=== PATIENT | female | born 1955 | race African-American/Black ===

== ENCOUNTER 2016-08-19 17:25 | Inpatient (IN) ==
--- NOTE | 2016-08-19 18:20 | Emergency Department Note ---
Disposition Clinical Impression: Elevated troponin, Hypertensive urgency, Anemia, Chest pain, CHF (congestive heart failure) Disposition: Admitted As Inpatient Condition: Fair Referrals: NO,PCP [Non-Partnered Physician] - Forms: ED Satisfaction Letter Time of Disposition: 00:12 General Adult HPI - General Chief complaint: ED Weakness Stated complaint: weakness, high BP? Time Seen by Provider: 08/19/16 18:03 Source: patient Limitations: no limitations - History of Present Illness HPI Narrative: This is a 60-year-old female who presents with nausea and chest pain starting yesterday while she was at work. Patient has a history of 2 cardiac stents and follows Dr. Finn for cardiology. Dr. Finn sent patient over here to be admitted. Patient's blood pressure has been out of control well over 200 systolic. Patient denies any abdominal pain, vomiting, diarrhea, urinary symptoms, or fever. Onset (ago): day(s) (1) Pain Scale: 8 - Related Data Home Medications Medication Instructions Recorded Confirmed Ammonium Lactate [Amlactin] 1 appl TP BID 02/22/15 02/14/16 Duloxetine HCl [Cymbalta] 60 mg PO DAILY 02/22/15 03/06/16 Gabapentin [Neurontin] 900 mg PO TID 02/22/15 03/06/16 Insulin ASPART [NovoLOG] 8 - 14 unit SQ TIDWM 02/22/15 03/06/16 Insulin Glargine,Hum.rec.anlog 40 unit SQ QAM 02/22/15 03/06/16 [Lantus Solostar] Nitroglycerin [Nitrostat] 0.4 mg SL Q5-6MIN PRN 02/22/15 02/14/16 Amlodipine [Norvasc] 5 mg PO DAILY 06/11/15 03/06/16 Aspirin Enteric Coated [Aspirin EC] 81 mg PO DAILY 06/11/15 03/06/16 Atorvastatin [Lipitor] 40 mg PO HS 06/11/15 03/06/16 Ergocalciferol (VITAMIN D2) 50,000 unit PO DAILY 09/06/15 03/06/16 [Vitamin D2 (50,000 UNIT)] CloNIDine Patch [Catapres-Tts] 0.2 mg TD QWEEK 02/14/16 03/06/16 Clotrimazole/Betameth Dip CRM 1 appl TP BID 02/14/16 02/14/16 [Lotrisone CRM] Menthol [Icy Hot Naturals] 1 appl TP QID 02/14/16 02/14/16 Lisinopril [Zestril] 40 mg PO BID 03/06/16 03/06/16 Rivaroxaban [Xarelto] 15 mg PO DAILY 03/06/16 03/06/16 Previous Rx's Medication Instructions Recorded Metoprolol XL (24 HR) Succ [Toprol 50 mg PO DAILY tab.er.24h 12/09/15 Xl] HYDROcodone/Acet 10/325 mg [[place] 1 tab PO Q6HR PRN #20 tab 03/06/16 10-325 mg] Albuterol Sulfate [Albuterol 1 puff IH Q4HR #1 inhaler 03/16/16 Inhaler] Hydrocodone/Acetaminophen [[place] 1 tab PO Q6H PRN #7 tab 03/16/16 5-325 Tablet] Allergies Allergy/AdvReac Type Severity Reaction Status Date / Time fentanyl Allergy Shakiness Verified 12/02/15 08:29 Oxycodone [From Percocet] Allergy Shakiness Verified 12/02/15 08:29 All systems ED: reviewed and negative except as stated. Constitutional: Reports: weakness. Denies: fever, chills, weight change Eyes: Denies: eye pain, eye discharge, vision change ENT ED: Denies: ear pain, throat pain, dental pain, hearing loss, epistaxis, congestion, dysphagia Cardiovascular: Reports: chest pain. Denies: palpitations, dyspnea on exertion , edema, syncope Respiratory: Denies: cough, dyspnea, wheezes, hemoptysis, stridor Gastrointestinal: Reports: nausea. Denies: abdominal pain, vomiting, diarrhea, constipation, hematemesis, melena, hematochezia Genitourinary: Denies: dysuria, frequency, hematuria, discharge Musculoskeletal: Denies: back pain, neck pain, arthralgia, myalgia Integumentary: Denies: rash, abrasion, lesions Neurological: Denies: headache, numbness, paresthesias, confusion, abnormal gait , vertigo Psychiatric: Denies: anxiety, depression, suicidal thoughts, homicidal thoughts , auditory hallucinations, visual hallucinations Endocrine: Denies: fatigue Hematological/Lymphatic: Denies: easy bleeding, easy bruising Allergic/Immunologic: Denies: facial swelling, urticaria Past Medical History - Past Medical History Attestation: Yes The following information was validated with the patient. Source: patient Medical history: Reports: coronary artery disease, diabetes, GERD, hypertension Surgical history: Reports: appendectomy, hysterectomy Psychiatric history: Reports: depression - Social History Smoking Status: Never smoker Smokeless Tobacco Status: No Alcohol use: Reports: occasionally Drug use: Reports: marijuana Physical Exam - General Limitations: no limitations General appearance: alert, in no apparent distress - Head Head exam: atraumatic, normocephalic, normal inspection - Eye Eye exam: Present: normal appearance, PERRL, EOMI - ENT ENT exam: normal exam, normal oropharynx, mucous membranes moist - Expanded ENT Exam External ear exam: Present: normal external inspection Mouth exam: Present: normal external inspection Teeth exam: Present: normal inspection Throat exam: Present: normal inspection - Neck Neck exam: Present: normal inspection, full ROM, trachea midline - Chest Chest inspection: Present: normal inspection, symmetric chest wall rise - Respiratory Respiratory exam: Present: normal lung sounds bilaterally - Cardiovascular Cardiovascular exam: Present: regular rate, normal rhythm, normal heart sounds - Abdominal Exam Abdominal exam: Present: soft, Non-Tender. Absent: tenderness, distention, guarding, rebound, rigidity - Extremities Exam Extremities exam: Present: normal inspection, full ROM. Absent: tenderness, pedal edema - Expanded Upper Extremity Exam Shoulder exam: Present: normal inspection, full ROM Arm exam: Present: normal inspection, full ROM Elbow exam: Present: normal inspection, full ROM Forearm/Wrist exam: Present: normal inspection, full ROM Hand exam: Present: normal inspection, full ROM Vascular exam: Normal: capillary refill, radial pulse - Expanded Lower Extremity Exam Hip/Pelvis exam: Present: normal inspection, full ROM Upper leg exam: Present: normal inspection, full ROM Knee exam: Present: normal inspection, full ROM Lower leg exam: Present: normal inspection, full ROM Ankle exam: Present: normal inspection, full ROM Foot/toe exam: Present: normal inspection, full ROM Neurovascular/Tendon exam: Absent: motor deficit, sensory deficit, tendon deficit - Back Exam Back exam: Present: normal inspection, full ROM. Absent: tenderness - Neurological Exam Neurological exam: Present: alert, oriented X3 - Expanded Neurological Exam Patient oriented to: Present: person, place, time Coma Scale Eye Opening: Spontaneous Coma Scale Motor Response: Obeys Commands Coma Scale Verbal Response: Oriented Coma Scale Total: 15 - Psychiatric Psychiatric exam: Present: normal affect, normal mood - Skin Skin exam: Present: warm, dry, intact, normal color Course - Consultations Consultation #1: I spoke with Dr. Julián salinas to admit. Time: 00:20 Vital Signs Temperature 98.8 F 08/19/16 17:44 Pulse Rate 98 08/19/16 17:44 Respiratory Rate 16 08/19/16 17:44 Blood Pressure 211/123 08/19/16 17:44 O2 Sat by Pulse Oximetry 96 08/19/16 17:44 Temperature 98.8 F 08/19/16 17:44 Pulse Rate 94 08/19/16 23:43 Respiratory Rate 16 08/19/16 23:43 Blood Pressure 206/96 08/19/16 23:43 O2 Sat by Pulse Oximetry 94 L 08/19/16 23:43 Oxygen Delivery Oxygen Delivery Room Air Medical Decision Making - Medical Records Medical records reviewed: Yes I reviewed the patient's medical records. - Lab Data Lab results reviewed: Yes I reviewed the patient's lab results. Result diagrams: 08/19/16 22:10 08/19/16 22:10 Lab Results 08/19/16 08/19/16 08/19/16 Range/Units 18:16 22:10 22:10 WBC (4.3-11.1) K/mcL RBC (3.82-4.97) M/mcL Hgb (11.5-15.4) g/dL Hct (35.3-44.9) % MCV (83.0-100.0) fL MCH (28.0-33.3) pg MCHC (31.6-35.5) g/dL RDW (11.5-14.5) % Plt Count (140-400) K/mcL MPV (9.4-12.4) fL Immature Gran % (0-4) % Seg Neutrophils % % Lymphocytes % % Monocytes % % Eosinophils % % Basophils % % Neutrophils # (1.6-8.9) K/mcL Lymphocytes # (0.6-4.6) K/mcL Monocytes # (0.0-1.3) K/mcL Eosinophils # (0.0-0.6) K/mcL Basophils # (0.0-0.2) K/mcL PT 11.8 (9.4-12.1) Seconds INR 1.1 APTT 22.2 L (26.0-36.0) Seconds Sodium (136-145) mEq/L Potassium (3.5-4.5) mEq/L Chloride (98-109) mEq/L Carbon Dioxide (19-29) mEq/L BUN (7-20) mg/dL Creatinine (0.57-1.11) mg/dL Est GFR ( Amer) (> 60) Est GFR (Non-Af Amer) (> 60) BUN/Creatinine Ratio (6-26) Glucose (70-99) mg/dL Calculated Osmolality (280-300) Calcium (8.6-10.8) mg/dL Total Bilirubin (0.2-1.2) mg/dL Direct Bilirubin (0.0-0.5) mg/dL Indirect Bilirubin (0.0-1.2) mg/dL AST (5-34) Units/L ALT (0-55) Units/L Alkaline Phosphatase (38-126) Units/L Troponin I 0.06 H* (0-0.03) ng/mL B-Natriuretic Peptide (0-100) pg/mL Serum Total Protein (6.0-8.3) g/dL Albumin (3.5-5.0) g/dL Globulin (2.4-3.5) g/dL Albumin/Globulin Ratio (1.1-2.2) Lipase (8-78) Units/L Urine Color Yellow (Yellow) Urine Clarity Cloudy A (Clear) Urine pH 6.0 (5.0-8.0) pH Units Ur Specific [place] 1.019 (1.010-1.025) Urine Protein >=1000 H (Neg-Trace) mg/dL Urine Glucose (UA) 250 H (Normal) mg/dL Urine Ketones Negative (Negative) mg/dL Urine Blood Moderate H (Negative) Urine Nitrite Negative (Negative) Urine Bilirubin Negative (Negative) Urine Urobilinogen Normal (Normal) mg/dL Ur Leukocyte Esterase Negative (Negative) Urine Microscopic RBC 0-3 (0-3) per hpf Urine Microscopic WBC 5-15 H (0-3) per hpf Ur Squamous Epith Cells Many H (None-Few) per lpf Urine Bacteria None Seen (None-Few) per hpf Hyaline Casts None Seen (None-Few) per lpf Ur Culture Indicated? YES A (NO) 08/19/16 08/19/16 08/19/16 Range/Units 22:10 22:10 22:10 WBC 11.6 H (4.3-11.1) K/mcL RBC 3.92 (3.82-4.97) M/mcL Hgb 9.4 L (11.5-15.4) g/dL Hct 29.1 L (35.3-44.9) % MCV 74.2 L (83.0-100.0) fL MCH 24.0 L (28.0-33.3) pg MCHC 32.3 (31.6-35.5) g/dL RDW 15.9 H (11.5-14.5) % Plt Count 222 (140-400) K/mcL MPV 10.6 (9.4-12.4) fL Immature Gran % 0.3 (0-4) % Seg Neutrophils % 81.3 % Lymphocytes % 11.5 % Monocytes % 5.5 % Eosinophils % 0.9 % Basophils % 0.5 % Neutrophils # 9.4 H (1.6-8.9) K/mcL Lymphocytes # 1.3 (0.6-4.6) K/mcL Monocytes # 0.6 (0.0-1.3) K/mcL Eosinophils # 0.1 (0.0-0.6) K/mcL Basophils # 0.1 (0.0-0.2) K/mcL PT (9.4-12.1) Seconds INR APTT (26.0-36.0) Seconds Sodium 139 (136-145) mEq/L Potassium 4.8 H (3.5-4.5) mEq/L Chloride 111 H (98-109) mEq/L Carbon Dioxide 18 L (19-29) mEq/L BUN 35 H (7-20) mg/dL Creatinine 1.30 H (0.57-1.11) mg/dL Est GFR ( Amer) 51 L (> 60) Est GFR (Non-Af Amer) 42 L (> 60) BUN/Creatinine Ratio 27 H (6-26) Glucose 209 H (70-99) mg/dL Calculated Osmolality 302 H (280-300) Calcium 8.5 L (8.6-10.8) mg/dL Total Bilirubin (0.2-1.2) mg/dL Direct Bilirubin (0.0-0.5) mg/dL Indirect Bilirubin (0.0-1.2) mg/dL AST (5-34) Units/L ALT (0-55) Units/L Alkaline Phosphatase (38-126) Units/L Troponin I (0-0.03) ng/mL B-Natriuretic Peptide 1073 H (0-100) pg/mL Serum Total Protein (6.0-8.3) g/dL Albumin (3.5-5.0) g/dL Globulin (2.4-3.5) g/dL Albumin/Globulin Ratio (1.1-2.2) Lipase (8-78) Units/L Urine Color (Yellow) Urine Clarity (Clear) Urine pH (5.0-8.0) pH Units Ur Specific [place] (1.010-1.025) Urine Protein (Neg-Trace) mg/dL Urine Glucose (UA) (Normal) mg/dL Urine Ketones (Negative) mg/dL Urine Blood (Negative) Urine Nitrite (Negative) Urine Bilirubin (Negative) Urine Urobilinogen (Normal) mg/dL Ur Leukocyte Esterase (Negative) Urine Microscopic RBC (0-3) per hpf Urine Microscopic WBC (0-3) per hpf Ur Squamous Epith Cells (None-Few) per lpf Urine Bacteria (None-Few) per hpf Hyaline Casts (None-Few) per lpf Ur Culture Indicated? (NO) 08/19/16 Range/Units 22:10 WBC (4.3-11.1) K/mcL RBC (3.82-4.97) M/mcL Hgb (11.5-15.4) g/dL Hct (35.3-44.9) % MCV (83.0-100.0) fL MCH (28.0-33.3) pg MCHC (31.6-35.5) g/dL RDW (11.5-14.5) % Plt Count (140-400) K/mcL MPV (9.4-12.4) fL Immature Gran % (0-4) % Seg Neutrophils % % Lymphocytes % % Monocytes % % Eosinophils % % Basophils % % Neutrophils # (1.6-8.9) K/mcL Lymphocytes # (0.6-4.6) K/mcL Monocytes # (0.0-1.3) K/mcL Eosinophils # (0.0-0.6) K/mcL Basophils # (0.0-0.2) K/mcL PT (9.4-12.1) Seconds INR APTT (26.0-36.0) Seconds Sodium (136-145) mEq/L Potassium (3.5-4.5) mEq/L Chloride (98-109) mEq/L Carbon Dioxide (19-29) mEq/L BUN (7-20) mg/dL Creatinine (0.57-1.11) mg/dL Est GFR ( Amer) (> 60) Est GFR (Non-Af Amer) (> 60) BUN/Creatinine Ratio (6-26) Glucose (70-99) mg/dL Calculated Osmolality (280-300) Calcium (8.6-10.8) mg/dL Total Bilirubin 0.5 (0.2-1.2) mg/dL Direct Bilirubin 0.2 (0.0-0.5) mg/dL Indirect Bilirubin 0.3 (0.0-1.2) mg/dL AST 17 (5-34) Units/L ALT 12 (0-55) Units/L Alkaline Phosphatase 67 (38-126) Units/L Troponin I (0-0.03) ng/mL B-Natriuretic Peptide (0-100) pg/mL Serum Total Protein 5.4 L (6.0-8.3) g/dL Albumin 2.6 L (3.5-5.0) g/dL Globulin 2.8 (2.4-3.5) g/dL Albumin/Globulin Ratio 0.9 L (1.1-2.2) Lipase 6 L (8-78) Units/L Urine Color (Yellow) Urine Clarity (Clear) Urine pH (5.0-8.0) pH Units Ur Specific [place] (1.010-1.025) Urine Protein (Neg-Trace) mg/dL Urine Glucose (UA) (Normal) mg/dL Urine Ketones (Negative) mg/dL Urine Blood (Negative) Urine Nitrite (Negative) Urine Bilirubin (Negative) Urine Urobilinogen (Normal) mg/dL Ur Leukocyte Esterase (Negative) Urine Microscopic RBC (0-3) per hpf Urine Microscopic WBC (0-3) per hpf Ur Squamous Epith Cells (None-Few) per lpf Urine Bacteria (None-Few) per hpf Hyaline Casts (None-Few) per lpf Ur Culture Indicated? (NO) - Radiology Data Radiology results reviewed: Yes I reviewed the patient's radiology results. - EKG Data EKG #1 EKG attestation: Yes I reviewed and interpreted this EKG. EKG shows normal: sinus rhythm Rate: normal (paced) When compared to previous EKG there are: no significant changes
[2016-08-19 18:26] LABS: Bilirubin,Urine Negative (Negative); Blood,Urine Moderate (Negative); Clarity,Urine Cloudy (Clear); Color,Urine Yellow (Yellow); Glucose,Urine (UA) 250 mg/dL (Normal); Ketones,Urine Negative (Negative); Leukocyte Esterase,Urine Negative (Negative); Nitrite,Urine Negative (Negative); Protein,Urine >=1000 mg/dL (Neg-Trace); Specific Gravity,Urine 1.019 (1.010-1.025); Urobilinogen,Urine Normal (Normal)
[2016-08-19 18:30] LABS: Bacteria,Urine None Seen per hpf (None-Few); Hyaline Casts,Urine None Seen per lpf (None-Few); Squamous Epithelial Cell,Urine Many per lpf (None-Few)
[2016-08-19 18:47] LABS: RBC,Urine 0-3 per hpf (0-3)
[2016-08-19] MEDS ORDERED: *HR* Labetalol 20 MG/4 ML SYRINGE IVP ONE (20:30)
[2016-08-19] MEDS ORDERED: 0.9 % Sodium Chloride 1,000 ML IVC ONE (20:31)
[2016-08-19 22:22] LABS: Basophils # 0.1 K/mcL (0.0-0.2); Basophils % 0.5 %; Eosinophils # 0.1 K/mcL (0.0-0.6); Eosinophils % 0.9 %; Hematocrit 29.1 % (35.3-44.9); Hemoglobin 9.4 g/dL (11.5-15.4); Immature Granulocytes % 0.3 % (0-4); Lymphocytes # 1.3 K/mcL (0.6-4.6); Lymphocytes % 11.5 %; Mean Corpuscular HGB Conc 32.3 g/dL (31.6-35.5); Mean Corpuscular Volume 74.2 fL (83.0-100.0); Mean Platelet Volume 10.6 fL (9.4-12.4); Monocytes # 0.6 K/mcL (0.0-1.3); Monocytes % 5.5 %; Neutrophils # 9.4 K/mcL (1.6-8.9); Platelet Count 222 K/mcL (140-400); Red Blood Count 3.92 M/mcL (3.82-4.97); Red Cell Distribution Width 15.9 % (11.5-14.5); Segmented Neutrophils % 81.3 %
[2016-08-19 22:27] LABS: INR 1.1; Prothrombin Time 11.8 Seconds (9.4-12.1)
[2016-08-19 22:29] LABS: Activated Partial Thrombo Time 22.2 Seconds (26.0-36.0)
[2016-08-19 22:33] LABS: Calcium 8.5 mg/dL (8.6-10.8); Potassium 4.8 mEq/L (3.5-4.5)
[2016-08-19] MEDS ORDERED: *HR* Morphine 2 MG/ML SYRINGE IV ONE (22:34)
[2016-08-19 22:35] LABS: Albumin 2.6 g/dL (3.5-5.0); Albumin/Globulin Ratio 0.9 (1.1-2.2); Bilirubin,Direct 0.2 mg/dL (0.0-0.5); Bilirubin,Indirect 0.3 mg/dL (0.0-1.2); Bilirubin,Total 0.5 mg/dL (0.2-1.2); Globulin 2.8 g/dL (2.4-3.5); Total Protein 5.4 g/dL (6.0-8.3)
[2016-08-19] MEDS ORDERED: 0.9 % Sodium Chloride 1,000 ML IVC SCH (23:45)
[2016-08-19] MEDS ORDERED: Nitroglycerin 25 MG/250 ML INFUS..BTL IVC SCH (23:45)
[2016-08-20] MEDS ORDERED: Aspirin 325 MG TABLET PO ONE (00:13)
[2016-08-20] MEDS ORDERED: 0.9 % Sodium Chloride 1,000 ML IVC SCH (00:35)
[2016-08-20] MEDS ORDERED: *HR* Morphine 2 MG/ML SYRINGE IVP PRN (01:27)
[2016-08-20] MEDS ORDERED: niCARdipine 20 MG/200 ML MLS IVC ONE (01:32)
[2016-08-20] MEDS: niCARdipine 20 MG/200 ML MLS IVC SCH ×6 (01:40→21:14)
[2016-08-20] MEDS ORDERED: Naloxone 0.4 MG/ML INJ IVP PRN (05:03)
[2016-08-20] MEDS ORDERED: *HR* Dextrose 50 % in Water (Syg) 50 ML SYRINGE IVP PRN (05:03)
[2016-08-20] MEDS ORDERED: Ondansetron 4 MG/2 ML VIAL IVP PRN (05:03)
[2016-08-20] MEDS ORDERED: D5% in Water 1,000 ML IV PRN (05:03)
[2016-08-20] MEDS ORDERED: *HR* Heparin 5,000 UNIT/ML VIAL IVP ONE (05:03)
[2016-08-20] MEDS ORDERED: *HR* Heparin 5,000 UNIT/ML VIAL IVP PRN ×2 (05:03)
[2016-08-20] MEDS ORDERED: Dextrose Gel 15 GM PO PRN ×2 (05:03)
[2016-08-20] MEDS ORDERED: Heparin 25,000 UNIT/500 ML D5W 25,000 UNIT/500 ML MLS IVC SCH (05:15)
--- NOTE | 2016-08-20 05:41 | Internal Med History&Physical ---
Date of Encounter: 08/20/16 Time of Encounter: 05:32 Assessment and Plan (1) Hypertensive emergency Current visit: Yes Status: Acute 1. Pt with resolution of symptoms upon control of BP. 2. Patient presently controlled on Nicardipine drip in step down unit. 3. Continue nicardipine with goal SBP 160-180 and then gradual decrease in BP. 4. Convert to oral regimen once BP controlled and patient stable. (2) Acute kidney injury Current visit: Yes Status: Acute 1. Control BP and monitor renal function. 2. May need nephrology consult if renal function does not improve. (3) Diabetes mellitus Current visit: Yes Status: Chronic Qualifiers: Diabetes mellitus type: type 2 Diabetes mellitus complication status: with neurologic complications Diabetes mellitus complication detail: with polyneuropathy Diabetes mellitus nursing home insulin use: with terminologist use Qualified Code(s): E11.42 - Type 2 diabetes mellitus with diabetic polyneuropathy; Z79.4 - custodial (current) use of insulin (4) Peripheral neuropathy Current visit: Yes Status: Chronic 1. Patient has pain stimulator in her back. 2. Continue po pain medication per home regimen. Qualifiers: Peripheral neuropathy type: polyneuropathy associated with underlying disease Qualified Code(s): G63 - Polyneuropathy in diseases classified elsewhere (5) Elevated troponin Current visit: Yes Status: Acute 1. Likely due to hypertensive emergency. 2. BP control as above. 3. Cycle troponins. 4. Check ECHO. 5. Obtain old records from [facility]. 6. Verify home meds and resume as appropriate. 7. Consult cardiology. 8. Monitor H/H while on heparin gtt. (6) DVT prophylaxis Current visit: Yes Status: Acute 1. On heparin drip per protocol. 2. Monitor H//H given prior history of rectal bleeding from diverticular disease. Internal Medicine - H&P: HPI Chief complaint: chest pain Admitted From: Emergency Dept Plans for Post Hospital Care: Home History of present illness: Ms. 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 Patient had evidence of hypertensive emergency in the ER with blood pressure running as high as 237/119. She also had evidence of demand ischemia, acute kidney injury, and headache. She was placed on nitroglycerin drip and admitted to the hospitalist service. Upon arrival to the floor, I requested the nurse wean off nitroglycerin drip and start her on nicardipine drip for better blood pressure control. Upon my assessment of the patient, her blood pressure is better controlled with current goal systolic blood pressure of 160-180. She is currently now chest pain-free. She has no headache. Shortness of breath has resolved. She is resting comfortably now. She states she has been having chest pain off and on for the last 2 days and has noted her blood pressure being out of control. She also complained of diaphoresis, shortness of breath, and dyspnea on exertion over the last couple days when her symptoms manifested. She states she recently had a heart catheterization in June 2016 at [facility]. She had 2 stents placed. She states she had to stop one of her blood thinners because of some subtle rectal bleeding. She does not recall which of the medications she had to stop. Since then, she has not had any further rectal bleeding. She states she had a colonoscopy roughly 1 year ago. I reviewed the colonoscopy results and note that she had diverticulosis. Past Med Surg Social Fam HX - Past Medical History Attestation: Yes The following information was validated with the patient. Source: patient, old records reviewed Medical history: coronary artery disease, diabetes, GERD, hypertension, other ( severe peripheral neuropathy -- has a pain stimulator in her back for control) Psychiatric history: depression - Past Surgical History Surgical History: angioplasty/stent (June 2016 -- [facility]), appendectomy, hysterectomy, other (pain stimulator) - Social History Smoking Status: Former smoker Smokeless Tobacco Status: No Alcohol use: occasionally Drug use: marijuana Current living situation: Home, With Family Activity Level: Independent ambulation Recent Out of Country Travel Within the Last 8 Weeks: No - Family History Mother Age: 67 Living Status: Age at : 67 Cause of : lung cancer Hx Family Respiratory Disorders: Yes Hx Family Cancer: Yes Father Living Status: Hx Family Cardiac Disorders: Yes Hx Family Respiratory Disorders: No Internal Medicine - H&P: Meds Ammonium Lactate [Amlactin] 1 appl TP BID 02/22/15 [History] Duloxetine HCl [Cymbalta] 60 mg PO DAILY 02/22/15 [History] Gabapentin [Neurontin] 900 mg PO TID 02/22/15 [History] Insulin ASPART [NovoLOG] 8 - 14 unit SQ TIDWM 02/22/15 [History] Insulin Glargine,Hum.rec.anlog [Lantus Solostar] 40 unit SQ QAM 02/22/15 [ History] Nitroglycerin [Nitrostat] 0.4 mg SL Q5-6MIN PRN 02/22/15 [History] Amlodipine [Norvasc] 5 mg PO DAILY 06/11/15 [History] Aspirin Enteric Coated [Aspirin EC] 81 mg PO DAILY 06/11/15 [History] Atorvastatin [Lipitor] 40 mg PO HS 06/11/15 [History] Ergocalciferol (VITAMIN D2) [Vitamin D2 (50,000 UNIT)] 50,000 unit PO DAILY [History] Metoprolol XL (24 HR) Succ [Toprol Xl] 50 mg PO DAILY tab.er.24h 12/09/15 [Rx] CloNIDine Patch [Catapres-Tts] 0.2 mg TD QWEEK 02/14/16 [History] Clotrimazole/Betameth Dip CRM [Lotrisone CRM] 1 appl TP BID 02/14/16 [History] Menthol [Icy Hot Naturals] 1 appl TP QID 02/14/16 [History] HYDROcodone/Acet 10/325 mg [[place] 10-325 mg] 1 tab PO Q6HR PRN #20 tab 03/06/16 [Rx] Lisinopril [Zestril] 40 mg PO BID 03/06/16 [History] Rivaroxaban [Xarelto] 15 mg PO DAILY 03/06/16 [History] Albuterol Sulfate [Albuterol Inhaler] 1 puff IH Q4HR #1 inhaler 03/16/16 [Rx] Hydrocodone/Acetaminophen [[place] 5-325 Tablet] 1 tab PO Q6H PRN #7 tab 03/16/16 [Rx] Allergies fentanyl Allergy (Verified 12/02/15 08:29) Shakiness Oxycodone [From Percocet] Allergy (Verified 12/02/15 08:29) Shakiness - Constitutional Constitutional: no chills, no fever(s) - EENT Eyes: no blurry vision, no change in vision Ears: no ear pain, no tinnitus Nose, mouth and throat: no nasal congestion, no nasal discharge, no sinus pain, no sinus pressure, no sore throat - Cardiovascular Cardiovascular ROS IM: chest pain, diaphoresis, dyspnea, dyspnea on exertion, palpitations, no edema - Respiratory Respiratory: dyspnea, dyspnea on exertion, no cough, no hemoptysis, no wheezing , no chest congestion, no excessive phlegm production - Gastrointestinal Gastrointestinal: no abdominal pain, no diarrhea, no hematemesis, no hematochezia, no melena, no nausea, no vomiting - Genitourinary Genitourinary: no dysuria, no flank pain, no hematuria - Musculoskeletal Musculoskeletal ROS IM: no arthralgias, no back pain, no joint swelling - Integumentary Integumentary IM: no rash, no jaundice - Neurological Neurological ROS: headache(s), no disequilibrium, no dizziness, no focal weakness, no frequent falls - Psychiatric Psychiatric: no anxiety, no depression - Endocrine Endocrine IM: no cold intolerance, no heat intolerance, no polydipsia, no polyuria - Hematologic/Lymphatic Hematologic/Lymphatic: no easy bruising, no lymphadenopathy - Allergic/Immunologic Allergic/Immunologic: no wheezing, no GI upset with certain foods - Constitutional Vitals: Temp Pulse Resp BP Pulse Ox 98.1 F 89 18 184/95 96 08/20/16 03:41 08/20/16 04:45 08/20/16 03:41 08/20/16 04:45 08/20/16 03:41 General appearance: Present: cooperative, A&O X 3, pleasant, no acute distress, answers questions appropriately - Head Head exam: Present: atraumatic, normal inspection - Expanded Head Exam Head exam expanded: Absent: abrasion, contusion, general tenderness - Eye Eye exam: Present: EOMI, normal appearance, PERRL. Absent: scleral icterus Pupils: Present: normal accommodation - ENT ENT exam: Present: mucous membranes dry, normal exam, normal oropharynx - Neck Neck exam general surgery: Present: full ROM, normal inspection, supple. Absent : lymphadenopathy, nuchal rigidity, thyromegaly - Expanded Neck Exam Neck exam: Absent: carotid bruit - Respiratory Respiratory exam: Present: CTAB. Absent: accessory muscle use, chest wall tenderness, rales, respiratory distress, rhonchi, wheezes - Cardiovascular Cardiovascular exam: Present: +S1, +S2, systolic murmur (grade 2 ). Absent: diastolic murmur, JVD, RRR - GI/Abdominal GI/Abdominal exam: Present: normal bowel sounds, soft. Absent: guarding, hepatomegaly, mass, rebound, splenomegaly, tenderness - Extremities Exam Extremities exam: Present: normal capillary refill, tenderness (peripheral neuropathy), warm. Absent: calf tenderness, joint swelling - Back Exam Back exam: Absent: CVA tenderness (L), CVA tenderness (R) - Neurological Exam Neurological exam: Present: alert, CN II-XII intact, motor sensory deficit ( decreased sensation and pain in her feet -- chronic), oriented X3, no focal deficits, strengths equal and symetr throughout - Psychiatric Psychiatric exam: Present: normal affect, normal mood - Skin Skin exam: Present: dry, warm. Absent: rash Internal Med - H&P Results - Labs CBC & Chem 7: 08/19/16 22:10 08/19/16 22:10 - EKG Data -: EKG Interpreted by Myself EKG shows normal: sinus rhythm - EKG Data Prior EKG available for review: no EKG comments: 08/20/16 05:47 sinus rhythm; IVCD - Diagnostic Studies Chest x-ray Status: image reviewed by me (lungs cleare; cardiomegaly) - VTE Reasons for not Prescribing Prophylaxis: Not indicated-Anticoagulated or INR therapeutic
[2016-08-20] MEDS: 0.9 % Sodium Chloride 1,000 ML IVC SCH ×2 (05:51→07:56)
[2016-08-20 06:32] LABS: Basophils # 0.1 K/mcL (0.0-0.2); Basophils % 0.6 %; Eosinophils # 0.3 K/mcL (0.0-0.6); Eosinophils % 2.7 %; Hematocrit 26.4 % (35.3-44.9); Hemoglobin 8.6 g/dL (11.5-15.4); Immature Granulocytes % 0.3 % (0-4); Lymphocytes # 2.3 K/mcL (0.6-4.6); Lymphocytes % 20.2 %; Mean Corpuscular HGB Conc 32.6 g/dL (31.6-35.5); Mean Corpuscular Hemoglobin 23.8 pg (28.0-33.3); Mean Corpuscular Volume 73.1 fL (83.0-100.0); Mean Platelet Volume 11.8 fL (9.4-12.4); Monocytes % 8.9 %; Neutrophils # 7.5 K/mcL (1.6-8.9); Nucleated Red Blood Cells 0.2 /100 WBC (0); Platelet Count 245 K/mcL (140-400); Red Blood Count 3.61 M/mcL (3.82-4.97); Red Cell Distribution Width 15.3 % (11.5-14.5); Segmented Neutrophils % 67.3 %
[2016-08-20 06:33] LABS: INR 1.1; Prothrombin Time 12.4 Seconds (9.4-12.1)
[2016-08-20 06:46] LABS: Albumin 2.4 g/dL (3.5-5.0); Albumin/Globulin Ratio 0.7 (1.1-2.2); Bilirubin,Total 0.4 mg/dL (0.2-1.2); Calcium 8.5 mg/dL (8.6-10.8); Globulin 3.3 g/dL (2.4-3.5); Magnesium 1.9 mg/dL (1.6-2.6); Potassium 4.7 mEq/L (3.5-4.5); Total Protein 5.7 g/dL (6.0-8.3)
[2016-08-20 06:49] LABS: Activated Partial Thrombo Time 138.8 Seconds (26.0-36.0)
[2016-08-20 07:06] LABS: Heparin anti-factor XA UFH 0.84 IU/mL (0.30-0.70)
[2016-08-20] MEDS: Insulin LISPRO 300 UNITS/3 ML VIAL SQ SCH ×4 (07:51→21:00)
[2016-08-20] MEDS: Aspirin Enteric Coated 81 MG Tablet PO SCH (07:51)
--- NOTE | 2016-08-20 09:31 | Cardiology Consult Note ---
<Yosi Echevarria - Last Filed: 08/20/16 12:05> Date of Encounter: 08/20/16 Time of Encounter: 09:27 Assessment and Plan (1) Hypertensive emergency Current Visit: Yes Status: Acute - patient currently asymptomatic, denies chest pain or shortness of breath - currently BP gradually decreased to SBP 160-180s on Nicardipine - home medications reviewed on office note from cardiology office but may to need verify with pharmacy - reportedly takes Lisinopril 20 BID, Catapres TD 0.3mg weekly patch, Hydralazine 50 BID, Lasix 40 DAILY, Tropol XL 50 DAILY - recommend starting Lisinopril and Catapres now and slowly reintroduce her home medications as she becomes more stable and wean off Nicardipine - she has +1 pitting edema and likely would benefit from diuretic (2) Elevated troponin Current Visit: Yes Status: Acute - troponins adynamic 0.06 --> 0.07, this is likely due to her hypertensive emergency and not ischemic - recommend D/C heparin - plan to control BP as described above - ECHO results pending (3) Coronary artery disease Current Visit: Yes Status: Acute - cardiology outpatient note reviewed - reported PCI to LAD AT [facility] - recommend to continue ASA/Brilinta, statin, and BB therapy Qualifiers: Coronary Disease-Associated Artery/Lesion type: [place] artery [place] vs. transplanted heart: [place] heart Associated angina: angina presence unspecified Qualified Code(s): I25.10 - Atherosclerotic heart disease of [place] coronary artery without angina pectoris Discussion w patient/family: The assessment and plan as outlined above was discussed with the patient and/or family members who expressed understanding and agreement. All questions were answered. Thank you for involving us in the care of your patient. Please call with any questions. History of Present Illness Consult date: 08/20/16 Requesting physician: Rachid Vail Consult reason: HTN, elevated trop Chief complaint: HTN emergency History of present illness: Ms. France is a 60 year old female with history of CAD s/p PCI (at [facility]), HTN , DM, HLD, PAD, LBBB, former smoker presented to the ED for chest pain, shortness of breath and uncontrollable hypertension. Presented for follow up with her Asset Analyst Dr. Finn and found to be hypertensive SBP 220s with complaints of chest discomfort, shortness of breath, and headache. Chest pain was located midsternal and described as heaviness, reports that it is similar to her anginal pain prior to recent left heart catheterization. Reports recent LHC at [facility] on 07/15/16 with PCI 2 stents placed. Patient denies any new changes in vision but reports diabetic retinopathy and neuropathy. Patient treated with Labetolol and Nitro in the ED. Trop adynamic 0.06 and 0.07. Placed on Nicardipine drip on admission and continues to control SBP 160-180s. Patient' s symptoms resolved with BP control. Reports hypertension has been difficult to control. Normally checks her BP 3 times a day and usually SBP 150s but it has been high the past several days ranging 190-220. She is unsure of what medications she takes at home because she has a home health nurse aid give her medications. Reports medications come from [facility]. Currently chest pain free. Denies any visual changes, headache, shortness of breath, nausea, or lightheadedness. Important CV studies: LHC 02/2015 shows EF 65% with LAD proximal 60% stenosis, Circumflex small, normal. Ramus 30% stenosis, RCA proximal 40% stenosis, mid 50% stenosis, and distal 30% stenosis ECHO 05/2015 shows EF 60% with moderate LVG, mild diastolic dysfunction, possible PFO by color doppler and no significant valvular dysfunction Past Med Surg Social Fam HX - Past Medical History Medical history: coronary artery disease, diabetes, GERD, hypertension, other ( severe peripheral neuropathy -- has a pain stimulator in her back for control) Psychiatric history: depression - Past Surgical History Surgical History: angioplasty/stent (June 2016 -- [facility]), appendectomy, hysterectomy, other (pain stimulator) - Social History Smoking Status: Former smoker Smokeless Tobacco Status: No Alcohol use: occasionally Drug use: marijuana - Family History Mother Age: 67 Living Status: Age at : 67 Cause of : lung cancer Hx Family Respiratory Disorders: Yes Hx Family Cancer: Yes Father Living Status: Hx Family Cardiac Disorders: Yes Hx Family Respiratory Disorders: No Medications and Allergies Duloxetine HCl [Cymbalta] 60 mg PO DAILY 02/22/15 [History] Gabapentin [Neurontin] 300 mg PO TID 02/22/15 [History] Insulin ASPART [NovoLOG] 8 - 14 unit SQ TIDWM 02/22/15 [History] Insulin Glargine,Hum.rec.anlog [Lantus Solostar] 40 unit SQ QAM 02/22/15 [ History] Nitroglycerin [Nitrostat] 0.4 mg SL Q5-6MIN PRN 02/22/15 [History] Amlodipine [Norvasc] 5 mg PO DAILY 06/11/15 [History] Aspirin Enteric Coated [Aspirin EC] 81 mg PO DAILY 06/11/15 [History] Metoprolol XL (24 HR) Succ [Toprol Xl] 50 mg PO DAILY tab.er.24h 12/09/15 [Rx] CloNIDine Patch [Catapres-Tts] 0.2 mg TD QWEEK 02/14/16 [History] Lisinopril [Zestril] 10 mg PO DAILY 03/06/16 [History] Hydrocodone/Acetaminophen [[place] 5-325 Tablet] 1 tab PO Q6H PRN #7 tab 03/16/16 [Rx] Furosemide [Lasix] 40 mg PO DAILY 08/20/16 [History] Hydralazine HCl 50 mg PO TID 08/20/16 [History] Isosorbide MONOnitrate (24 HR) [Imdur] 30 mg PO DAILY 08/20/16 [History] Labetalol HCl 300 mg PO BID 08/20/16 [History] Metoclopramide [Reglan] 10 mg PO Q6HR 08/20/16 [History] Pantoprazole Sodium [Protonix] 40 mg PO 08/20/16 [History] Promethazine [Phenergan] 25 mg PO Q12H PRN 08/20/16 [History] Ticagrelor [Brilinta] 90 mg PO BID 08/20/16 [History] Allergies fentanyl Allergy (Verified 08/20/16 09:41) Shakiness Oxycodone [From Percocet] Allergy (Verified 08/20/16 09:41) Shakiness All Systems Review: A 10-system review of systems was performed and is negative for pertinent findings except as documented above in the HPI. - Constitutional Constitutional: no fatigue, no fever(s), no headache(s), no weakness - EENT Eyes: no blurred vision, no loss of vision - Cardiovascular Cardiovascular: no chest pain at rest, no chest pain with exertion, no dyspnea at rest, no dyspnea on exertion, no radiating jaw, neck or arm pain, no lightheadedness, no palpitations - Respiratory Respiratory: no cough, no dyspnea - Gastrointestinal Gastrointestinal: no abdominal pain, no hematochezia Physical Examination Vital Signs, Last 4 Hours Temp Pulse Resp BP Pulse Ox 08/20/16 08:00 87 179/90 08/20/16 07:40 97.8 F 89 18 159/83 99 08/20/16 06:30 81 165/80 08/20/16 06:00 88 180/85 08/20/16 05:30 88 182/98 General: Conversant, No Apparent Distress HEENT: Atraumatic, Normocephaly, Mucus Membranes Moist Neck: Normal carotid pulses, Other (JVD 6 cm) Cardiac: Reg Rate and Rhythm, Normal S1 and S2, Other (systolic murmur) Lungs: Normal Breath Sounds, No Wheeze, Rales, Rhonchi Neuro: Alert and responsive, No focal deficits noted Abdomen: Soft, Non-Tender Skin: No rashes noted on visualized skin Musculoskeletal: No Chest Wall Tenderness Extremities: No Clubbing, No Cyanosis, Normal Pulses, Other (+1 pitting edema) Results 08/20/16 06:07 08/20/16 06:07 Lab Results 08/20/16 08/20/16 08/20/16 06:07 06:07 06:07 WBC 11.2 H Hgb 8.6 L Hct 26.4 L Plt Count 245 INR 1.1 APTT 138.8 H* D Sodium 139 Potassium 4.7 H Chloride 111 H Carbon Dioxide 18 L BUN 31 H Creatinine 1.27 H Glucose 191 H Calcium 8.5 L Magnesium 1.9 Total Bilirubin 0.4 AST 17 ALT 11 Alkaline Phosphatase 68 Troponin I 08/20/16 06:07 WBC Hgb Hct Plt Count INR APTT Sodium Potassium Chloride Carbon Dioxide BUN Creatinine Glucose Calcium Magnesium Total Bilirubin AST ALT Alkaline Phosphatase Troponin I 0.07 H* - Imaging and Cardiology Chest Xray: report reviewed, image reviewed Echo: pending Cardiac cath: other - EKG Interpretation EKG results cardiology: personally reviewed, left bundle branch block Consult Discharge Plan - Plan Referrals: Ravindra Anton [Non-Partnered Physician] - 08/27/16 11:15 am (PLEASE ARRIVE BY 1105AM) <Vernon Cuadra G - Last Filed: 08/20/16 12:18> Date of Encounter: 08/20/16 Assessment and Plan Discussion w patient/family: The assessment and plan as outlined above was discussed with the patient and/or family members who expressed understanding and agreement. All questions were answered. Thank you for involving us in the care of your patient. Please call with any questions. History of Present Illness History of present illness: Ms. France is a 60 year old female All Systems Review: A 10-system review of systems was performed and is negative for pertinent findings except as documented above in the HPI. Physical Examination Vital Signs, Last 4 Hours Temp Pulse Resp BP Pulse Ox 08/20/16 10:00 81 169/87 08/20/16 09:00 85 180/90 08/20/16 08:00 87 179/90 08/20/16 07:40 97.8 F 89 18 159/83 99 Results 08/20/16 06:07 08/20/16 06:07 Lab Results 08/20/16 08/20/16 08/20/16 06:07 06:07 06:07 WBC 11.2 H Hgb 8.6 L Hct 26.4 L Plt Count 245 INR 1.1 APTT 138.8 H* D Sodium 139 Potassium 4.7 H Chloride 111 H Carbon Dioxide 18 L BUN 31 H Creatinine 1.27 H Glucose 191 H Calcium 8.5 L Magnesium 1.9 Total Bilirubin 0.4 AST 17 ALT 11 Alkaline Phosphatase 68 Troponin I 08/20/16 06:07 WBC Hgb Hct Plt Count INR APTT Sodium Potassium Chloride Carbon Dioxide BUN Creatinine Glucose Calcium Magnesium Total Bilirubin AST ALT Alkaline Phosphatase Troponin I 0.07 H* - Attending Attestation I examined this patient and my medical decision-making was reviewed with the OIL FIELD RIG BUILDER/PA/Advanced Practice Nurse/Resident Physician. I agree with the documented findings, disposition and treatment plan as described except to the extent set forth below. Pt here for Hypertension, with symptoms no cp , sob, pnd VSS: B P still elevated JVD: 6 cm Chest clear CVS n o s3 No renal artery bruit EKG: reviewed by me shows LBBB which is old plan; re add meds from home wean off NIcardipine no indications for cath at present Thanks !
[2016-08-20] MEDS: *HR* HYDROcodone/Acet 5/325 mg TABLET PO PRN ×2 (13:48→21:13)
[2016-08-20] MEDS ORDERED: Nitroglycerin 0.4 MG TAB.SUBL SL PRN (14:42)
[2016-08-20] MEDS ORDERED: LISINOPRIL 10 MG PO SCH (14:45)
[2016-08-20] MEDS: Gabapentin 300 MG CAPSULE PO SCH ×2 (15:53→21:13)
[2016-08-20] MEDS: Isosorbide MONOnitrate (24 HR) 30 MG TAB.ER.24H PO SCH (15:53)
[2016-08-20] MEDS: hydrALAZINE 25 MG TABLET PO SCH ×2 (15:53→21:13)
[2016-08-20 18:58] LABS: Hematocrit 22.8 % (35.3-44.9); Hemoglobin 7.6 g/dL (11.5-15.4)
[2016-08-20] MEDS: *HR* Ticagrelor 90 MG TABLET PO SCH (21:13)
[2016-08-20] MEDS: Lisinopril 20 MG TABLET PO SCH (21:13)
[2016-08-21 04:49] LABS: Hematocrit 22.9 % (35.3-44.9); Hemoglobin 7.7 g/dL (11.5-15.4)
[2016-08-21 05:04] LABS: Chol/HDL Ratio 6.7 (0-4.9)
[2016-08-21] MEDS: *HR* HYDROcodone/Acet 5/325 mg TABLET PO PRN ×2 (06:12→14:07)
[2016-08-21] MEDS: Furosemide 40 MG TABLET PO SCH (08:30)
[2016-08-21] MEDS: Metoprolol XL (24 HR) Succ 50 MG TAB.ER.24H PO SCH (08:31)
[2016-08-21] MEDS: Aspirin Enteric Coated 81 MG Tablet PO SCH (08:31)
[2016-08-21] MEDS: Isosorbide MONOnitrate (24 HR) 30 MG TAB.ER.24H PO SCH (08:31)
[2016-08-21] MEDS: Gabapentin 300 MG CAPSULE PO SCH ×3 (08:32→20:15)
[2016-08-21] MEDS: *HR* Ticagrelor 90 MG TABLET PO SCH ×2 (08:32→20:15)
[2016-08-21] MEDS: amLODIPine 5 MG TABLET PO SCH (08:33)
[2016-08-21] MEDS: hydrALAZINE 25 MG TABLET PO SCH ×3 (08:34→20:15)
[2016-08-21] MEDS: Lisinopril 20 MG TABLET PO SCH ×2 (08:34→20:15)
[2016-08-21] MEDS: Insulin LISPRO 300 UNITS/3 ML VIAL SQ SCH ×4 (08:38→23:15)
[2016-08-21] MEDS: niCARdipine 20 MG/200 ML MLS IVC SCH ×3 (08:39→15:59)
--- NOTE | 2016-08-21 08:46 | Cardiology Progress Note ---
<Yosi Echevarria - Last Filed: 08/21/16 10:39> Date of Encounter: 08/21/16 Time of Encounter: 08:44 Assessment and Plan (1) Hypertensive emergency Current Visit: Yes Status: Acute - patient remains asymptomatic, denies chest pain or shortness of breath - still hypertensive but improving SBP 150s overnight but currently 170s at 172/ 85, receiving her AM meds now - recommend to continue weaning off Nicardipine, currently 2.5 mg/hr - home medications were verified with pharmacy, she has been reintroduced = Norvasc, Hydralazine, Lisinopril, Tropol, and Furosemide - recommend getting clinical social work aide to contact home health nurse aid regarding her medications prior to discharge (patient reports nurse comes monthly to set up pill box) - continue to trend renal function, Cr 1.27 (baseline appears 0.9) - ECHO revealed normal EF with grade I aortic sclerosis Cardiology will sign off at this time, thank you for involving us in her care. Please re-consult as needed for further questions. (2) Elevated troponin Current Visit: Yes Status: Acute - troponins adynamic 0.06, this is likely due to her hypertensive emergency and not ischemic - plan to control BP as described above (3) Coronary artery disease Current Visit: Yes Status: Acute - cardiology outpatient note reviewed - reported PCI to LAD AT [place] - continue ASA/Brilinta, statin, and BB therapy Qualifiers: Coronary Disease-Associated Artery/Lesion type: [place] artery [place] vs. transplanted heart: [place] heart Associated angina: angina presence unspecified Qualified Code(s): I25.10 - Atherosclerotic heart disease of [place] coronary artery without angina pectoris (4) Hyperlipidemia Current Visit: Yes Status: Acute - lipid panel revealed hyperlipidemia, total 248 LDL 185 HDL 37 - started on simvastatin here, recommend going home with a statin considering recent PCI with stents - LFTs are normal Qualifiers: Hyperlipidemia type: unspecified Qualified Code(s): E78.5 - Hyperlipidemia , unspecified (5) Acute kidney injury Current Visit: Yes Status: Acute - continues to have elevated Cr 1.27 (1.3), awaiting today's metabolic panel - control BP and monitor renal function Discussion w patient/family: The assessment and plan as outlined above was discussed with the patient and/or family members who expressed understanding and agreement. All questions were answered. Thank you for involving us in the care of your patient. Please call with any questions. Subjective Principal diagnosis: HTN, elevated trop Interval history: Patient seen and examined at bedside. No complaints at this time. Denies any chest pain, palpitations, shortness of breath, headache, nausea, or vomiting. Making good urine, uses a bedpan. She just finished her breakfast but appears that it was a clear liquid diet, will advance to cardiac ADA diet. RN at bedside to give antihypertensive medications. Nicardipine drip is running at 2.5 Objective Vital Signs, Last 4 Hours Temp Pulse Resp BP Pulse Ox 08/21/16 06:30 74 175/83 08/21/16 06:00 70 159/79 08/21/16 05:30 68 160/82 08/21/16 05:00 69 150/78 08/21/16 04:56 97.7 F 73 20 150/78 98 General: Conversant, No Apparent Distress HEENT: Atraumatic, Normocephaly, Mucus Membranes Moist Neck: Normal carotid pulses, Other (JVD 6 cm) Cardiac: Reg Rate and Rhythm, Normal S1 and S2, Other (systolic murmur) Lungs: Normal Breath Sounds, No Wheeze, Rales, Rhonchi Neuro: Alert and responsive, No focal deficits noted Abdomen: Soft, Non-Tender Skin: No rashes noted on visualized skin Musculoskeletal: No Chest Wall Tenderness Extremities: No Clubbing, No Cyanosis, No Edema, Normal Pulses Results 08/21/16 04:30 08/20/16 06:07 Lab Results 08/20/16 08/20/16 08/20/16 12:14 18:34 18:34 Hgb 7.6 L Hct 22.8 L Troponin I 0.07 H* 0.06 H* 08/21/16 04:30 Hgb 7.7 L Hct 22.9 L Troponin I - Imaging and Cardiology Echo: pending - VTE Reasons for not Prescribing Prophylaxis: Not indicated-Anticoagulated or INR therapeutic Consult Discharge Plan - Plan Referrals: Ravindra Anton [Non-Partnered Physician] - 08/27/16 11:15 am (PLEASE ARRIVE BY 1105AM) <Vernon Cuadra - Last Filed: 08/21/16 12:36> Date of Encounter: 08/21/16 Assessment and Plan Discussion w patient/family: The assessment and plan as outlined above was discussed with the patient and/or family members who expressed understanding and agreement. All questions were answered. Thank you for involving us in the care of your patient. Please call with any questions. Objective Vital Signs, Last 4 Hours Temp Pulse Resp BP Pulse Ox 08/21/16 11:00 98 F 73 18 142/78 97 08/21/16 09:30 78 156/75 08/21/16 09:00 82 174/81 Results 08/21/16 04:30 08/20/16 06:07 Lab Results 08/20/16 08/20/16 08/20/16 12:14 18:34 18:34 Hgb 7.6 L Hct 22.8 L Troponin I 0.07 H* 0.06 H* 08/21/16 04:30 Hgb 7.7 L Hct 22.9 L Troponin I Attestation: My signature below is to certify that this patient is under my care and that I, or nurse practitioner, or a physician's assistant paralegal or resident working with me, has a [id number] encounter with this patient. Pt feels tired, but no headaches, no sob, pnd BP is better controlled VSS JVD: 6 cm Chest: clear CVS: RRR, no murmurs echo reviewed by me shows normal ef , grade 1 diastolic dysfunction AV scelrosis consider PT OT cont present meds
--- NOTE | 2016-08-21 11:09 | Internal Med Progress Note ---
Date of Encounter: 08/21/16 Time of Encounter: 11:04 - Assessment and plan (1) Hypertensive emergency Current Visit: Yes Status: Acute Assessment and plan: Patient was admitted with severely elevated blood pressure, started on IV nicardipine drip. Home medications were restarted and patient is currently off the nicardipine drip with appropriate blood pressure control. Continue current regimen. Unclear etiology for the uncontrolled hypertension as she claims she was compliant to her medications with no dietary indiscretion. (2) Elevated troponin Current Visit: Yes Status: Acute Assessment and plan: Cardiology consult appreciated. Elevated troponin is most likely related to uncontrolled hypertension rather than a new coronary event. Continue telemetry monitoring. Troponin currently stable at around 0.07. Patient follows with cardiology as outpatient. Underwent stent placement about 1 month back and is noted to be on aspirin and Brilinta. (3) Acute kidney injury Current Visit: Yes Status: Resolved (4) Anemia Current Visit: Yes Status: Acute Assessment and plan: Patient is noted to have acute on chronic anemia. She did receive IV heparin drip at admission, that was held yesterday afternoon. She is also noted to be on aspirin and Brilinta following PCI and stent placement about a month ago. We will check stool for occult blood and discuss with cardiology regarding holding antiplatelet agents if it is positive. Will give 2 units PRBC transfusion given her underlying cardiac disease and hemoglobin being less than 8. Continue to monitor hemoglobin. She is being worked up as outpatient for chronic unexplained anemia, possible hemoglobin C/hemoglobinopathy that has not been confirmed yet. Qualifiers: Anemia type: other cause Other causes of anemia: other cause, not classified Qualified Code(s): D64.89 - Other specified anemias (5) Coronary artery disease Current Visit: Yes Status: Chronic Assessment and plan: Status post recent stent placement. Continue aspirin, Brilinta, beta annamaria and statin and ADA inhibitor. Qualifiers: Coronary Disease-Associated Artery/Lesion type: [place] artery [place] vs. transplanted heart: [place] heart Associated angina: without angina Qualified Code(s): I25.10 - Atherosclerotic heart disease of [place] coronary artery without angina pectoris (6) Hyperlipidemia Current Visit: Yes Status: Chronic Assessment and plan: Lipid profile shows mildly elevated LDL cholesterol, continue statin. Qualifiers: Hyperlipidemia type: unspecified Qualified Code(s): E78.5 - Hyperlipidemia , unspecified (7) Diabetes mellitus Current Visit: Yes Status: Chronic Assessment and plan: Continue Accu-Chek blood glucose monitoring with sliding scale insulin. 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 No chest pain, shortness of breath, abdominal pain. No bowel movements yet. - Constitutional Vitals: Temp Pulse Resp BP Pulse Ox 97.5 F L 78 18 156/75 98 08/21/16 08:30 08/21/16 09:30 08/21/16 08:30 08/21/16 09:30 08/21/16 08:30 General appearance: Present: A&O X 3, obese, answers questions appropriately - Head Head exam: Present: atraumatic, normocephalic - Neck Neck exam general surgery: Present: supple, trachea midline. Absent: lymphadenopathy - Respiratory Respiratory exam: Present: CTAB. Absent: accessory muscle use, rales, rhonchi, wheezes - Cardiovascular Cardiovascular exam: Present: RRR, +S1, +S2, systolic murmur. Absent: diastolic murmur, gallop, rubs - GI/Abdominal GI/Abdominal exam: Present: normal bowel sounds, soft, no peritoneal signs. Absent: distended, tenderness - Extremities Exam Extremities exam: Present: pedal edema (Trace), warm, radial pulses palpable and symetrical. Absent: calf tenderness, cyanotic - Neurological Exam Neurological exam: Present: CN II-XII intact, oriented X3, no focal deficits. Absent: pronater drift, facial droop, speech deficit - Skin Skin exam: Present: dry, intact Internal Medicine: Result - Labs CBC & Chem 7: 08/21/16 04:30 08/20/16 06:07 Labs: Short CBC 08/20/16 08/21/16 Range/Units 18:34 04:30 Hgb 7.6 L 7.7 L (11.5-15.4) g/dL Hct 22.8 L 22.9 L (35.3-44.9) % Cardiac Enzymes 08/20/16 08/20/16 Range/Units 12:14 18:34 Troponin I 0.07 H* 0.06 H* (0-0.03) ng/mL - ABG Interpretation ABG results: PT/INR, D-dimer PT 12.4 Seconds (9.4-12.1) H 08/20/16 06:07 - VTE Reasons for not Prescribing Prophylaxis: Not indicated-Anticoagulated or INR therapeutic Consult Discharge Plan - Plan Referrals: Ravindra Anton [Non-Partnered Physician] - 08/27/16 11:15 am (PLEASE ARRIVE BY 1105AM)
[2016-08-21] MEDS ORDERED: Furosemide 20 MG/2 ML VIAL IVP SCH (12:00)
[2016-08-21] MEDS: Sennosides/Docusate Sodium TABLET PO SCH ×2 (12:04→20:15)
[2016-08-21 13:00] LABS: Calcium 8.3 mg/dL (8.6-10.8)
[2016-08-21 13:02] LABS: Potassium 4.7 mEq/L (3.5-4.5)
--- NOTE | 2016-08-21 13:03 | ECHO - Doppler Report ---
Echo with Saline Contrast Name: Sarah France Date of Study: 08/20/2016 Date: 1955 Ht: 66.0 in Medical Record#: [id number] Age: 60 Wt: 247.0 lb Gender: Female BSA: 2.19 Order #: [id number] Location: [facility] Room #: 2N8 Reading Physician: Hiram Finn DO, [place], HANNAH BARNES Resident Services Manager: Rachel Browne Ordering Physician: Rachid Vail MD Primary Physician: Brent Christensen DO Indications: Chest pain, Troponin elevation Impressions: LVEF 60-65%. Normal LV chamber size and function. Moderate concentric left ventricular hypertrophy. Mild left ventricular diastolic dysfunction. Normal right ventricular structure and function. Moderately calcified aortic valve leaflets. Mild aortic stenosis. Mean gradient 17 mmHg. No evidence of pulmonary hypertension. Left Ventricular Wall Motion: Rest Echo Findings All wall segments showed normal motion. Findings: Study Quality * Technically adequate exam. ECG Findings * Normal sinus rhythm. Left Ventricle * LVEF 60-65%. * Normal LV chamber size and function. * Moderate concentric left ventricular hypertrophy. * Mild left ventricular diastolic dysfunction. Right Ventricle * Normal right ventricular structure and function. Left Atrium * Moderately dilated left atrium. Right Atrium * Moderately dilated right atrium. Interatrial Septum * No evidence of PFO by color Doppler. Aortic Valve * Trileaflet aortic valve. * Moderately calcified aortic valve leaflets. * No aortic regurgitation. * Mild aortic stenosis. Mean gradient 17 mmHg. Mitral Valve * Mild mitral annular calcification * Mildly thickened mitral valve leaflets. * No mitral regurgitation. * No mitral stenosis. Tricuspid Valve * Normal tricuspid valve structure and function. * Trace tricuspid regurgitation. * No evidence of pulmonary hypertension. Pulmonic Valve * Normal pulmonic valve structure and function. * No pulmonic regurgitation. Aorta * Normally sized aortic root. Pericardium * The pericardium appears normal. IVC * Normal IVC dimensions and inspiratory collapse. Pulmonary Artery * Normal visualized portions of the main pulmonary artery. History Hypertension Diabetes Hypercholesteremia History of Smoking Years 10 Packs 0.5 Family History of CAD History of CAD/PTCA Myocardial Infarction 05/22/2015 a Previous Echo was performed. Contrast: Agitated saline 30 ml. Measurements: BP: 170/ 79 2D Normal Values RVIDd: 3.20 cm <2.7 cm IVSd: 1.60 cm 0.6 - 1.0 cm LVIDd: 5.00 cm 3.7 - 5.6 cm LVPWd: 1.60 cm 0.6 - 1.1 cm LVIDs: 3.30 cm 1.5 - 3.6 cm AO: 2.90 cm < 4.0 cm LA: 4.70 cm 2.0 - 4.0cm %FS: 34.00 cm >25 % LVOT Diam: 2.00 cm LA volume: 119 Mitral Valve Peak Velocity 1.66 m/sec Mean Velocity:1.09 m/sec Peak Grad:11.00 mmHg Mean Grad:5.00 mmHg Pressure Time:88.00 msec Valve Area:1.64 cm2 Peak E:1.32 m/sec Peak A:1.55 m/sec E/A Ratio:0.9 Peak E' Lat Real:5.85 cm/s Peak E' Med Real:5.26 cm/s E/E' Lat Ratio:22.6 E/E' Med Ratio:25.1 LVOT Peak Real:1.29 m/sec Mean Real:.85 m/sec Peak Grad:7.00 mmHg Mean Grad:3.00 mmHg Aortic Valve Peak Real:2.59 m/sec Mean Real:1.92 m/sec Peak Grad:27.00 mmHg Mean Grad:17.00 mmHg Valve Area:1.37 cm2 Tricuspid Valve TV Regurg Peak Grad: 11.00mmHg TV Regurg Peak Real: 1.64m/sec Updated by Hiram Finn DO, FACNadiya, HANNAH BARNES on 08/21/2016 12:55:14 PM electronically signed on 08/21/2016 12:56:43 PM with status of Final Wall Motion [place]: 1=Normal, 2=Hypokinesis, 3=Akinesis, 4=Dyskinesis, 5=Aneurysmal, 6=Hyperkinetic, X=Not Visualized (Blank)=Missing
--- NOTE | 2016-08-21 15:51 | Electrocardiograph Report ---
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
--- NOTE | 2016-08-21 15:54 | Electrocardiograph Report ---
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
[2016-08-21] MEDS: Furosemide 20 MG/2 ML VIAL IVP SCH (17:40)
[2016-08-21 19:17] LABS: Hematocrit 29.1 % (35.3-44.9)
[2016-08-21 19:19] LABS: Hemoglobin 9.8 g/dL (11.5-15.4)
[2016-08-21] MEDS ORDERED: 0.9 % Sodium Chloride 500 ML ONE (23:35)
[2016-08-22] MEDS: Furosemide 20 MG/2 ML VIAL IVP SCH (03:08)
[2016-08-22] MEDS: niCARdipine 20 MG/200 ML MLS IVC SCH ×2 (04:29→09:02)
[2016-08-22 05:31] LABS: Hemoglobin 11.4 g/dL (11.5-15.4)
[2016-08-22] MEDS ORDERED: CloNIDine Patch 0.2 MG PATCH (WEEKLY) TD SCH (07:45)
[2016-08-22] MEDS: Sennosides/Docusate Sodium TABLET PO SCH (08:46)
[2016-08-22] MEDS: Metoprolol XL (24 HR) Succ 50 MG TAB.ER.24H PO SCH (08:47)
[2016-08-22] MEDS: Isosorbide MONOnitrate (24 HR) 30 MG TAB.ER.24H PO SCH (08:48)
[2016-08-22] MEDS: *HR* Ticagrelor 90 MG TABLET PO SCH (08:48)
[2016-08-22] MEDS: Gabapentin 300 MG CAPSULE PO SCH ×2 (08:50→14:59)
[2016-08-22] MEDS: hydrALAZINE 25 MG TABLET PO SCH ×2 (08:50→14:59)
[2016-08-22] MEDS: Aspirin Enteric Coated 81 MG Tablet PO SCH (08:51)
[2016-08-22] MEDS: amLODIPine 5 MG TABLET PO SCH (08:51)
[2016-08-22] MEDS: Lisinopril 20 MG TABLET PO SCH (08:51)
[2016-08-22] MEDS: Furosemide 40 MG TABLET PO SCH (08:52)
[2016-08-22] MEDS: Insulin LISPRO 300 UNITS/3 ML VIAL SQ SCH ×2 (08:54→11:37)
--- NOTE | 2016-08-22 09:33 | Discharge Summary ---
Date of Encounter: 08/22/16 Time of Encounter: 09:30 - Discharge Diagnosis (1) Hypertensive emergency Priority: Primary Status: Acute (2) Elevated troponin Priority: Primary Status: Acute (3) Acute kidney injury Priority: Primary Status: Resolved (4) Anemia Priority: Secondary Status: Chronic Qualifiers: Anemia type: other cause Other causes of anemia: other cause, not classified Qualified Code(s): D64.89 - Other specified anemias (5) Coronary artery disease Priority: Secondary Status: Chronic Qualifiers: Coronary Disease-Associated Artery/Lesion type: [place] artery [place] vs. 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 insulin use: with skilled nursing use Qualified Code(s): E11.42 - Type 2 diabetes mellitus with diabetic polyneuropathy; Z79.4 - terminal clerk (current) use of insulin (8) Peripheral neuropathy Priority: Secondary Status: Chronic Qualifiers: Peripheral neuropathy type: polyneuropathy associated with underlying disease Qualified Code(s): G63 - Polyneuropathy in diseases classified elsewhere (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 - Discharge Medications Prescriptions: Sennosides/Docusate Sodium [Senna Plus] 1 each PO BID PRN #30 tablet PRN Reason: Constipation Home Medications: Duloxetine HCl [Cymbalta] 60 mg PO DAILY 02/22/15 [History] Gabapentin [Neurontin] 300 mg PO TID 02/22/15 [History] Insulin ASPART [NovoLOG] 8 - 14 unit SQ TIDWM 02/22/15 [History] Insulin Glargine,Hum.rec.anlog [Lantus Solostar] 40 unit SQ QAM 02/22/15 [ History] Nitroglycerin [Nitrostat] 0.4 mg SL Q5-6MIN PRN 02/22/15 [History] Amlodipine [Norvasc] 5 mg PO DAILY 11/24/15 [History] Aspirin Enteric Coated [Aspirin EC] 81 mg PO DAILY 06/11/15 [History] Metoprolol XL (24 HR) Succ [Toprol Xl] 50 mg PO DAILY tab.er.24h 12/09/15 [Rx] CloNIDine Patch [Catapres-Tts] 0.2 mg TD QWEEK 02/14/16 [History] Lisinopril [Zestril] 10 mg PO DAILY 03/06/16 [History] Hydrocodone/Acetaminophen [[place] 5-325 Tablet] 1 tab PO Q6H PRN #7 tab 03/16/16 [Rx] Furosemide [Lasix] 40 mg PO DAILY 08/20/16 [History] Hydralazine HCl 50 mg PO TID 08/20/16 [History] Isosorbide MONOnitrate (24 HR) [Imdur] 30 mg PO DAILY 08/20/16 [History] Labetalol HCl 300 mg PO BID 08/20/16 [History] Metoclopramide [Reglan] 10 mg PO Q6HR 08/20/16 [History] Pantoprazole Sodium [Protonix] 40 mg PO 08/20/16 [History] Promethazine [Phenergan] 25 mg PO Q12H PRN 08/20/16 [History] Ticagrelor [Brilinta] 90 mg PO BID 08/20/16 [History] Sennosides/Docusate Sodium [Senna Plus] 1 each PO BID PRN #30 tablet 08/22/16 [ Rx] Allergies/Adverse Reactions: Allergies fentanyl Allergy (Verified 08/20/16 09:41) Shakiness Oxycodone [From Percocet] Allergy (Verified 08/20/16 09:41) Shakiness Date of admission: 08/20/16 05:17 Primary care physician: Brent Christensen DO Discharging clinician: Evlie Sheth Anticipated date of discharge: 08/22/16 - Patient Status Disposition: Home Health Service Condition: Fair Functional capacity at discharge: independent ambulation Overall status at discharge: patient is progressing back to baseline - Discharge Instructions Instructions: Chronic Hypertension (DC) Follow Up With: Ravindra Anton [Non-Partnered Physician] - 08/27/16 11:15 am (PLEASE ARRIVE BY 1105AM) [place],Hiram M, DO [Partnered Physician] - (CARDIOLOGY OFFICE WILL CALL YOU WITH F/U APPT FOR 2-3 WEEKS) Additional Instructions: F/up with with [facility] in 2-3 weeks - Diet and Activity Activity: resume usual activities as tolerated Diet: diabetic diet, low fat, low cholesterol, low salt diet Hospital course: Ms. France is a 60 year old female with the above medical problems who was admitted with chest pain, headache and nausea. She was noted to have hypertensive urgency with systolic blood pressure more than 220 and diastolic blood pressure more than 120. She was started on IV nicardipine drip with gradual improvement in her blood pressure and her home medications were gradually reintroduced with stable blood pressure. She had elevated troponin at the time of admission, which is likely a result of uncontrolled hypertension. However, patient did receive a recent stent placement about 1 month back and has been on aspirin and Brilinta. She was initially started on IV heparin drip for possible non-ST elevation DC. Echocardiogram was done which showed 60-65% ejection fraction, moderate concentrate LVH, mild left ventricular diastolic dysfunction, moderate aortic sclerosis. Cardiology was consulted and discontinued IV heparin drip as this is less likely a new coronary event and agreed with the above management and recommended no further cardiac testing as an inpatient. Patient does follow with outpatient cardiology and she is recommended to continue this. She was noted to have acute on chronic anemia, possibly related to the use of IV heparin drip along with other antiplatelet agents. Stool occult blood test could not be done as she was mostly constipated. Her hemoglobin improved significantly after receiving 2 units PRBC transfusion. She has no other signs or symptoms of overt bleeding. She received laxatives and is noted to have bowel movements today, nonbloody. She is now medically stable for discharge with reinstatement of home health services and outpatient medical follow-up. - Time Spent with Patient Total time spent providing and/or coordinating discharge services: Greater than 30 minutes (45 min) - Constitutional Vitals: Temp Pulse Resp BP Pulse Ox 97.7 F 79 18 142/55 96 08/22/16 07:19 08/22/16 07:19 08/22/16 07:19 08/22/16 07:19 08/22/16 07:19 General appearance: Present: A&O X 3, obese, answers questions appropriately - Respiratory Respiratory exam: Present: CTAB. Absent: accessory muscle use, rales, rhonchi, wheezes - Cardiovascular Cardiovascular exam: Present: RRR, +S1, +S2. Absent: diastolic murmur, gallop, rubs, systolic murmur - VTE Reasons for not Prescribing Prophylaxis: Not indicated-Anticoagulated or INR therapeutic
--- NOTE | 2016-08-22 09:35 | Physician Discharge Referral ---
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 For more information, call the [place] Tobacco Quit Line at 8-682-LTXD-NOW. - Diet/Nutrition Diet/Nutrition Orders: No Added Salt (ROZINA), Cardiac - Activity Activity Orders: Ambulate - Services Needed Following services are medically necessary services: Nursing, Home Health Aide - Transfer Medications Prescriptions: Sennosides/Docusate Sodium [Senna Plus] 1 each PO BID PRN #30 tablet PRN Reason: Constipation Home Medications: Duloxetine HCl [Cymbalta] 60 mg PO DAILY 02/22/15 [History] Gabapentin [Neurontin] 300 mg PO TID 02/22/15 [History] Insulin ASPART [NovoLOG] 8 - 14 unit SQ TIDWM 02/22/15 [History] Insulin Glargine,Hum.rec.anlog [Lantus Solostar] 40 unit SQ QAM 02/22/15 [ History] Nitroglycerin [Nitrostat] 0.4 mg SL Q5-6MIN PRN 02/22/15 [History] Amlodipine [Norvasc] 5 mg PO DAILY 06/11/15 [History] Aspirin Enteric Coated [Aspirin EC] 81 mg PO DAILY 06/11/15 [History] Metoprolol XL (24 HR) Succ [Toprol Xl] 50 mg PO DAILY tab.er.24h 12/09/15 [Rx] CloNIDine Patch [Catapres-Tts] 0.2 mg TD QWEEK 02/14/16 [History] Lisinopril [Zestril] 10 mg PO DAILY 03/06/16 [History] Hydrocodone/Acetaminophen [[place] 5-325 Tablet] 1 tab PO Q6H PRN #7 tab 03/16/16 [Rx] Furosemide [Lasix] 40 mg PO DAILY 08/20/16 [History] Hydralazine HCl 50 mg PO TID 08/20/16 [History] Isosorbide MONOnitrate (24 HR) [Imdur] 30 mg PO DAILY 08/20/16 [History] Labetalol HCl 300 mg PO BID 08/20/16 [History] Metoclopramide [Reglan] 10 mg PO Q6HR 08/20/16 [History] Pantoprazole Sodium [Protonix] 40 mg PO 08/20/16 [History] Promethazine [Phenergan] 25 mg PO Q12H PRN 08/20/16 [History] Ticagrelor [Brilinta] 90 mg PO BID 08/20/16 [History] Sennosides/Docusate Sodium [Senna Plus] 1 each PO BID PRN #30 tablet 08/22/16 [ Rx] Allergies/Adverse Reactions: Allergies fentanyl Allergy (Verified 08/20/16 09:41) Shakiness Oxycodone [From Percocet] Allergy (Verified 08/20/16 09:41) Shakiness Certification: Further, I certify that my clinical findings support that this patient is homebound (i.e. absences from home require considerable and taxing effort and are for medical reasons or episcop[employer] services or infrequently or short duration when for other reasons) because: Homebound Reason: Patient requires assistance of a person or device to safely leave home (MEDICATION MANAGEMENT, BP AND DM CONTROL) Attestation: My signature below is to certify that this patient is under my care and that I, or nurse practitioner, or a physician's bacteriology research assistant working with me, has a face-to -face encounter with this patient.
[2016-08-22] MEDS: *HR* HYDROcodone/Acet 5/325 mg TABLET PO PRN (10:01)
[2016-08-22 14:12] VITALS: BP 109/64
== END 2016-08-22 15:10 | disposition home health service (06) | DRG 305 ==
LOC: EMEROO 17:25 → 2NNU 17:25
PROVIDERS: ADMIT Internal Medicine; ATTEND Internal Medicine

== ENCOUNTER 2016-09-03 01:03 | Inpatient (IN) ==
[2016-09-03] MEDS ORDERED: Ipratropium/Albuterol Neb 3 ML IH ONE (01:27)
[2016-09-03] MEDS: Ipratropium/Albuterol Neb 3 ML ONE ×2 (01:40→01:42)
--- NOTE | 2016-09-03 02:14 | Emergency Department Note ---
Disposition Clinical Impression: Hypoxia, Elevated troponin Acute CHF (congestive heart failure) Qualifiers: Congestive heart failure type: unspecified congestive heart failure type Qualified Code(s): I50.9 - Heart failure, unspecified Disposition: Admitted As Inpatient Condition: Fair General Adult HPI - General Chief complaint: ED Shortness of Breath/Dyspnea Stated complaint: sick x 2 days/sob/vomiting Time Seen by Provider: 09/03/16 01:11 Source: patient, family Limitations: no limitations Nursing Notes Reviewed: Yes Vital Signs Reviewed: Yes - History of Present Illness HPI Narrative: 60 y/o female who had some nausea and vomiting yesterday. That has since resolved but now she feels short of breath. No fever. Feels week. No lung problems. PMH of DM, HTN, CAD. She has a stent. Pain Scale: 0 Improves with: nothing Worsens with: nothing Associated symptoms: Reports: denies other symptoms - Related Data Home Medications Medication Instructions Recorded Confirmed Duloxetine HCl [Cymbalta] 60 mg PO DAILY 02/22/15 08/20/16 Gabapentin [Neurontin] 300 mg PO TID 02/22/15 08/20/16 Insulin ASPART [NovoLOG] 8 - 14 unit SQ TIDWM 02/22/15 08/20/16 Insulin Glargine,Hum.rec.anlog 40 unit SQ QAM 02/22/15 08/20/16 [Lantus Solostar] Nitroglycerin [Nitrostat] 0.4 mg SL Q5-6MIN PRN 02/22/15 08/20/16 Amlodipine [Norvasc] 5 mg PO DAILY 06/11/15 08/20/16 Aspirin Enteric Coated [Aspirin EC] 81 mg PO DAILY 06/11/15 08/20/16 CloNIDine Patch [Catapres-Tts] 0.2 mg TD QWEEK 02/14/16 08/20/16 Lisinopril [Zestril] 10 mg PO DAILY 03/06/16 08/20/16 Furosemide [Lasix] 40 mg PO DAILY 08/20/16 08/20/16 Hydralazine HCl 50 mg PO TID 08/20/16 08/20/16 Isosorbide MONOnitrate (24 HR) 30 mg PO DAILY 08/20/16 08/20/16 [Imdur] Labetalol HCl 300 mg PO BID 08/20/16 08/20/16 Metoclopramide [Reglan] 10 mg PO Q6HR 08/20/16 08/20/16 Pantoprazole Sodium [Protonix] 40 mg PO 08/20/16 Promethazine [Phenergan] 25 mg PO Q12H PRN 08/20/16 08/20/16 Ticagrelor [Brilinta] 90 mg PO BID 08/20/16 08/20/16 Previous Rx's Medication Instructions Recorded Metoprolol XL (24 HR) Succ [Toprol 50 mg PO DAILY tab.er.24h 12/09/15 Xl] Hydrocodone/Acetaminophen [[place] 1 tab PO Q6H PRN #7 tab 03/16/16 5-325 Tablet] Sennosides/Docusate Sodium [Senna 1 each PO BID PRN #30 tablet 08/22/16 Plus] Allergies Allergy/AdvReac Type Severity Reaction Status Date / Time fentanyl Allergy Shakiness Verified 08/20/16 09:41 Oxycodone [From Percocet] Allergy Shakiness Verified 08/20/16 09:41 All systems ED: reviewed and negative except as stated. Constitutional: Denies: fever Cardiovascular: Denies: chest pain Respiratory: Reports: cough, dyspnea Gastrointestinal: Reports: nausea, vomiting. Denies: abdominal pain Genitourinary: Denies: dysuria Integumentary: Denies: rash Endocrine: Reports: fatigue Past Medical History - Past Medical History Medical history: Reports: coronary artery disease, diabetes, GERD, hypertension , other Surgical history: Reports: angioplasty/stent (June 2016 -- [facility]), appendectomy, hysterectomy, other (pain stimulator) Psychiatric history: Reports: depression - Social History Smoking Status: Former smoker Smokeless Tobacco Status: No Alcohol use: Reports: occasionally Drug use: Reports: marijuana Physical Exam - General Limitations: no limitations General appearance: alert, in no apparent distress - Head Head exam: atraumatic - Eye Eye exam: Present: normal appearance, PERRL, EOMI - ENT ENT exam: normal exam, normal oropharynx - Neck Neck exam: Present: normal inspection - Chest Chest inspection: Present: normal inspection - Respiratory Respiratory exam: Present: wheezes (mild wheezes throughout), other (coarse sounds on the right.). Absent: respiratory distress - Abdominal Exam Abdominal exam: Present: soft, Non-Tender - Extremities Exam Extremities exam: Present: normal inspection - Neurological Exam Neurological exam: Present: alert, oriented X3 - Psychiatric Psychiatric exam: Present: normal affect, normal mood - Skin Skin exam: Present: warm, dry Course Course Narrative: She had a low SPO2 at triage of aprox 80%. No lung pathology, not on O2 at home. Came up to 90% on nasal canula. Difficult to get IV access and I personally placed a left sided external jugular line. - Reevaluation(s) Reevaluation #1: Elevated troponin and low spo2 in setting of elevated BNP and congestion on CXR. Will start nitroglycerin Nitrodrip is up to 60mg/min. BP still elevated over 200 systolic. Will give labetalol. Accepted by [facility] for admission. Vital Signs Temperature 97.5 F L 09/03/16 01:04 Pulse Rate 97 09/03/16 01:04 Respiratory Rate 24 09/03/16 01:04 Blood Pressure 203/108 09/03/16 01:04 O2 Sat by Pulse Oximetry 83 L 09/03/16 01:04 Temperature 97.5 F L 09/03/16 01:04 Pulse Rate 95 09/03/16 04:58 Respiratory Rate 24 09/03/16 04:58 Blood Pressure 218/132 09/03/16 04:58 O2 Sat by Pulse Oximetry 95 09/03/16 04:58 Oxygen Delivery Oxygen Delivery CPAP Mask O2 Medical Decision Making - Lab Data Lab results reviewed: Yes I reviewed the patient's lab results. Result diagrams: 09/03/16 03:01 09/03/16 03:01 Lab Results 09/03/16 09/03/16 09/03/16 Range/Units 03:01 03:01 03:01 WBC 11.1 (4.3-11.1) K/mcL RBC 4.02 (3.82-4.97) M/mcL Hgb 10.1 L (11.5-15.4) g/dL Hct 29.7 L (35.3-44.9) % MCV 73.9 L (83.0-100.0) fL MCH 25.1 L (28.0-33.3) pg MCHC 34.0 (31.6-35.5) g/dL RDW 16.2 H (11.5-14.5) % Plt Count 242 (140-400) K/mcL MPV 11.3 (9.4-12.4) fL Immature Gran % 0.6 (0-4) % Seg Neutrophils % 85.4 % Lymphocytes % 4.1 % Monocytes % 9.5 % Eosinophils % 0.0 % Basophils % 0.4 % Neutrophils # 9.5 H (1.6-8.9) K/mcL Lymphocytes # 0.5 L (0.6-4.6) K/mcL Monocytes # 1.1 (0.0-1.3) K/mcL Eosinophils # 0.0 (0.0-0.6) K/mcL Basophils # 0.0 (0.0-0.2) K/mcL Nucleated RBCs/100 WBC 0.2 H (0) /100 WBC Hypersegmented Neuts Present A (Not Present) Platelet Estimate Normal (Normal) Immature Plt Fraction 6.3 H (1.1-6.1) % VBG pH (7.32-7.42) pH Units VBG pCO2 (41-51) mmHg VBG pO2 (25-40) mmHg VBG HCO3 (21-27) mEq/L Sodium 135 L (136-145) mEq/L Potassium 3.9 (3.5-4.5) mEq/L Chloride 104 (98-109) mEq/L Carbon Dioxide 20 (19-29) mEq/L BUN 33 H (7-20) mg/dL Creatinine 1.63 H (0.57-1.11) mg/dL Est GFR ( Amer) 39 L (> 60) Est GFR (Non-Af Amer) 32 L (> 60) BUN/Creatinine Ratio 20 (6-26) Glucose 201 H (70-99) mg/dL Calculated Osmolality 293 (280-300) Calcium 8.9 (8.6-10.8) mg/dL Troponin I 0.27 H* (0-0.03) ng/mL B-Natriuretic Peptide (0-100) pg/mL 09/03/16 09/03/16 Range/Units 03:01 03:01 WBC (4.3-11.1) K/mcL RBC (3.82-4.97) M/mcL Hgb (11.5-15.4) g/dL Hct (35.3-44.9) % MCV (83.0-100.0) fL MCH (28.0-33.3) pg MCHC (31.6-35.5) g/dL RDW (11.5-14.5) % Plt Count (140-400) K/mcL MPV (9.4-12.4) fL Immature Gran % (0-4) % Seg Neutrophils % % Lymphocytes % % Monocytes % % Eosinophils % % Basophils % % Neutrophils # (1.6-8.9) K/mcL Lymphocytes # (0.6-4.6) K/mcL Monocytes # (0.0-1.3) K/mcL Eosinophils # (0.0-0.6) K/mcL Basophils # (0.0-0.2) K/mcL Nucleated RBCs/100 WBC (0) /100 WBC Hypersegmented Neuts (Not Present) Platelet Estimate (Normal) Immature Plt Fraction (1.1-6.1) % VBG pH 7.39 (7.32-7.42) pH Units VBG pCO2 37 L (41-51) mmHg VBG pO2 42 H (25-40) mmHg VBG HCO3 22.4 (21-27) mEq/L Sodium (136-145) mEq/L Potassium (3.5-4.5) mEq/L Chloride (98-109) mEq/L Carbon Dioxide (19-29) mEq/L BUN (7-20) mg/dL Creatinine (0.57-1.11) mg/dL Est GFR ( Amer) (> 60) Est GFR (Non-Af Amer) (> 60) BUN/Creatinine Ratio (6-26) Glucose (70-99) mg/dL Calculated Osmolality (280-300) Calcium (8.6-10.8) mg/dL Troponin I (0-0.03) ng/mL B-Natriuretic Peptide 4793 H (0-100) pg/mL - Radiology Data Radiology results reviewed: Yes I reviewed the patient's radiology results. - EKG Data EKG #1 EKG attestation: Yes I reviewed and interpreted this EKG. EKG shows normal: sinus rhythm Rate: tachycardia Rhythm: NSR When compared to previous EKG there are: no significant changes Interpretation: other (No significant changes. J point elevation in V2-V4, present on prior EKG's.) Critical Care Time Critical Care Time: Yes Total Critical Care Time: 60 Attestation: Critical care performed: Time is exclusive of separately billable procedures. Time includes: direct patient care, patient reassessment, coordination of patient care, interpretation of data (laboratory data, radiology data, and respiratory data), review of patient's medical records, medical consultation and documentation of patient care. Procedures included in critical care time: Procedures excluded from critical care time: Attestation Statement - Attestation Attestation: I, Zan George MD, personally performed a history and physical exam of the patient and discussed their management with the resident. I reviewed the resident's note and agree with the documented findings, medical decision making , and plan of care. 60-year-old female presents to the emergency department with a complaint of 2 day history of cough and increasing shortness of breath. She had some nausea and vomiting yesterday. She has not noticed any fever. No chest pain. On examination patient is a well-developed obese female in no acute distress. She is alert and oriented 3. There is no cyanosis or diaphoresis. Breath sounds are equal bilaterally with some rales in the right mid and lower lung as well as a few wheezes. Heart regular rate and rhythm. Abdomen soft and nontender with normal bowel sounds. Trace pedal edema. Chest x-ray read as cardiomegaly with CHF. On personal review the x-rays appears to be a right upper lobe and right lower lobe infiltrate and did receive a dose of antibiotic. EKG is unchanged from prior EKG about 6 ago. Troponin was elevated at 0.27. 2 weeks ago it was 0.06. BNP is 4793 and 2 weeks ago it was in the 1000 range. Patient received IV Lasix and nitroglycerin drip. She was placed on CPAP and then later switched to BiPAP. The hospitalist, Dr. Hart, was consulted and accepted admission the patient.
[2016-09-03] MEDS ORDERED: Levofloxacin 750 MG/150 ML 750 MG/150 ML BAG IVPB ONE (02:42)
[2016-09-03 03:12] LABS: VBG HCO3 22.4 mEq/L (21-27); VBG PH 7.39 pH Units (7.32-7.42)
[2016-09-03 03:15] LABS: Mean Corpuscular Hemoglobin 25.1 pg (28.0-33.3)
[2016-09-03 03:17] LABS: Basophils % 0.4 %; Hematocrit 29.7 % (35.3-44.9); Hemoglobin 10.1 g/dL (11.5-15.4); Immature Granulocytes % 0.6 % (0-4); Immature Platelets 6.3 % (1.1-6.1); Lymphocytes # 0.5 K/mcL (0.6-4.6); Lymphocytes % 4.1 %; Mean Corpuscular Volume 73.9 fL (83.0-100.0); Mean Platelet Volume 11.3 fL (9.4-12.4); Monocytes # 1.1 K/mcL (0.0-1.3); Monocytes % 9.5 %; Neutrophils # 9.5 K/mcL (1.6-8.9); Nucleated Red Blood Cells 0.2 /100 WBC (0); Platelet Count 242 K/mcL (140-400); Red Blood Count 4.02 M/mcL (3.82-4.97); Red Cell Distribution Width 16.2 % (11.5-14.5); Segmented Neutrophils % 85.4 %
[2016-09-03 03:29] LABS: Calcium 8.9 mg/dL (8.6-10.8); Potassium 3.9 mEq/L (3.5-4.5)
[2016-09-03 03:40] LABS: Hypersegmented Neutrophils Present (Not Present); Platelet Estimate Normal (Normal)
[2016-09-03] MEDS ORDERED: Furosemide 40 MG/4 ML VIAL IVP ONE (03:41)
[2016-09-03] MEDS ORDERED: Nitroglycerin 25 MG/250 ML INFUS..BTL IVC SCH (03:45)
[2016-09-03] MEDS ORDERED: Aspirin 325 MG TABLET PO ONE (04:05)
[2016-09-03] MEDS ORDERED: *HR* LORazepam 2 MG/ML VIAL IVP ONE (04:21)
[2016-09-03] MEDS ORDERED: *HR* Labetalol 20 MG/4 ML SYRINGE IVP ONE (04:59)
[2016-09-03] MEDS ORDERED: *HR* Labetalol 100 MG/20 ML MDV IVP ONE (05:15)
[2016-09-03 05:39] LABS: ABG Base Excess -1.2 mEq/L (-2.0 to 3.0); ABG HCO3 23.6 mEQ/L (21-27); ABG Oxygen Saturation 93 % (95-98); ABG PCO2 39 mmHg (35-45); ABG PH 7.39 pH Units (7.32-7.45); ABG PO2 69 mmHg (85-104); ABG TCO2 24.8 mEq/L (20-26); Blood Gas FiO2 50 %
--- NOTE | 2016-09-03 05:43 | Internal Med History&Physical ---
<Jc Christopher - Last Filed: 09/03/16 06:33> Date of Encounter: 09/03/16 Time of Encounter: 05:40 Assessment and Plan (1) Hypertensive emergency Current visit: No Status: Acute Presented with SBP >200 and started on nitro drip but still remains uncontrolled End organ damage as noted by elevated troponin, pulmonary edema, and KEEGAN Will add Hydralazine 25 mg TID, with holding parameters if SBP < 160 She is on Clonidine patch at home but will give her clonidine PO 0.2 TID Goal target rate within 24 hours of 160-170 Continue home dose of Toprol but holding other oral anti-hypertensives for now Consult cardiology, appreciate recommendations NPO in case she is to have a procedure (2) Acute diastolic (congestive) heart failure Current visit: Yes Status: Acute Likely exacerbated by hypertensive emergency Her last echo 2 weeks ago showed preserved EF with mild diastolic dysfunction Will start IV Lasix 60 mg BID as her chest x-ray demonstrated fluid overload Measure I/O's and daily weights (3) Acute respiratory failure Current visit: Yes Status: Acute She is requiring BiPAP at this point and appears in mild respiratory distress Will be admitting to ICU as she is at high risk for impending respiratory failure ABG is pending Qualifiers: Qualified Code(s): J96.00 - Acute respiratory failure, unspecified whether with hypoxia or hypercapnia (4) Acute worsening of stage 3 chronic kidney disease Current visit: Yes Status: Acute She does not have a production statistical clerk and is unaware of her CKD III Likely etiology of acute worsening is pre-renal due to uncontrolled hypertension Will avoid nephrotoxic agents, holding home Lisinopril Closely monitor electrolytes (5) Insulin dependent diabetes mellitus Current visit: Yes Status: Chronic NPO for now, so will start low dose SSI q6hr Obtain A1c level (6) Elevated troponin Current visit: Yes Status: Acute Trop elevated at 0.27 likely from demand ischemia in setting of hypertensive emergency She not actively having chest pain, but will trend troponin x2 (7) Coronary artery disease Current visit: No Status: Chronic No active chest pain right now Will continue home ASA/Brillinta Qualifiers: Coronary Disease-Associated Artery/Lesion type: [place] artery [place] vs. transplanted heart: [place] heart Associated angina: without angina Qualified Code(s): I25.10 - Atherosclerotic heart disease of [place] coronary artery without angina pectoris (8) DVT prophylaxis Current visit: No Status: Acute Heparin 5000 units SQ BID Internal Medicine - H&P: HPI Chief complaint: Nausea, vomiting, shortness of breath Admitted From: Home Plans for Post Hospital Care: Home History of present illness: Ms. France is a 60 year old female who presents to the emergency department with nausea and vomiting that started yesterday and shortness of breath started today. She states that she had nausea and several episodes of vomiting yesterday which eventually resolved on its own. However today she feels very short of breath. She does have a history of coronary artery disease requiring 2 stents which were placed in [facility] last June, and is currently on aspirin and Brillinta. Patient's blood pressure has been difficult to control she was admitted to weeks ago for hypertensive emergency. She required a nicardipine drip initially and was discharged with multiple antihypertensive medications. Patient denies any chest pain but is currently on the BiPAP and states she isn't normally on oxygen at home. She has a blood pressure cuff at home and states her systolic has been over 200 the past couple days despite being compliant on her medications. She denies any fevers, chills, diarrhea, blood in urine or stool. She also does not report any stroke-like symptoms including facial droop, slurred speech, focal weakness. Past Med Surg Social Fam HX - Past Medical History Medical history: coronary artery disease, diabetes, GERD, hypertension, other Psychiatric history: depression - Past Surgical History Surgical History: angioplasty/stent (June 2016 -- [facility]), appendectomy, hysterectomy, other (pain stimulator) - Social History Smoking Status: Former smoker Smokeless Tobacco Status: No Alcohol use: occasionally Drug use: marijuana - Family History Mother Living Status: Hx Family Respiratory Disorders: Yes Hx Family Cancer: Yes Father Living Status: Hx Family Cardiac Disorders: Yes Hx Family Respiratory Disorders: No Internal Medicine - H&P: Meds Duloxetine HCl [Cymbalta] 60 mg PO DAILY 02/22/15 [History] Gabapentin [Neurontin] 300 mg PO TID 02/22/15 [History] Insulin ASPART [NovoLOG] 8 - 14 unit SQ TIDWM 02/22/15 [History] Insulin Glargine,Hum.rec.anlog [Lantus Solostar] 40 unit SQ QAM 02/22/15 [ History] Nitroglycerin [Nitrostat] 0.4 mg SL Q5-6MIN PRN 02/22/15 [History] Amlodipine [Norvasc] 5 mg PO DAILY 06/11/15 [History] Aspirin Enteric Coated [Aspirin EC] 81 mg PO DAILY 06/11/15 [History] Metoprolol XL (24 HR) Succ [Toprol Xl] 50 mg PO DAILY tab.er.24h 12/09/15 [Rx] CloNIDine Patch [Catapres-Tts] 0.2 mg TD QWEEK 02/14/16 [History] Lisinopril [Zestril] 10 mg PO DAILY 03/06/16 [History] Hydrocodone/Acetaminophen [[place] 5-325 Tablet] 1 tab PO Q6H PRN #7 tab 03/16/16 [Rx] Furosemide [Lasix] 40 mg PO DAILY 08/20/16 [History] Hydralazine HCl 50 mg PO TID 08/20/16 [History] Isosorbide MONOnitrate (24 HR) [Imdur] 30 mg PO DAILY 08/20/16 [History] Labetalol HCl 300 mg PO BID 08/20/16 [History] Metoclopramide [Reglan] 10 mg PO Q6HR 08/20/16 [History] Pantoprazole Sodium [Protonix] 40 mg PO 08/20/16 [History] Promethazine [Phenergan] 25 mg PO Q12H PRN 08/20/16 [History] Ticagrelor [Brilinta] 90 mg PO BID 08/20/16 [History] Sennosides/Docusate Sodium [Senna Plus] 1 each PO BID PRN #30 tablet 08/22/16 [ Rx] Allergies fentanyl Allergy (Verified 08/20/16 09:41) Shakiness Oxycodone [From Percocet] Allergy (Verified 08/20/16 09:41) Shakiness All Systems PM: A 10-system review of systems was performed and is negative for pertinent findings except as documented above in the HPI. - Constitutional Constitutional: weakness, no chills, no fever(s), no night sweats - EENT Eyes: no change in vision, no discharge, no pain, no photophobia Ears: no ear discharge, no ear pain, no tinnitus Nose, mouth and throat: no dysphagia, no nasal discharge, no neck pain, no sore throat - Cardiovascular Cardiovascular ROS IM: dyspnea, dyspnea on exertion, lightheadedness, no chest pain, no diaphoresis, no palpitations, no syncope - Respiratory Respiratory: dyspnea, dyspnea on exertion, wheezing, no cough, no excessive phlegm production - Gastrointestinal Gastrointestinal: abdominal pain, constipation, nausea, vomiting, no diarrhea, no hematemesis, no hematochezia, no melena - Genitourinary Genitourinary: no change in urinary stream, no dysuria, no flank pain, no hematuria - Musculoskeletal Musculoskeletal ROS IM: back pain (chronic), numbness, tingling - Integumentary Integumentary IM: no rash, no unusual bruising - Neurological Neurological ROS: numbness, tingling, no confusion, no convulsions, no dizziness , no focal weakness, no frequent falls, no headache(s), no loss of vision, no tremor(s) - Hematologic/Lymphatic Hematologic/Lymphatic: no easy bruising - Constitutional Vitals: Temp Pulse Resp BP Pulse Ox 97.5 F L 88 24 204/114 97 09/03/16 01:04 09/03/16 05:32 09/03/16 05:32 09/03/16 05:32 09/03/16 05:32 General appearance: Present: mild distress (respiratory, while on BiPAP) - Head Head exam: Present: atraumatic, normocephalic - Eye Eye exam: Present: PERRL, conjuntiva pink, sclera anicteric Pupils: Present: PERRL - Neck Neck exam general surgery: Present: supple, trachea midline. Absent: lymphadenopathy - Respiratory Respiratory exam: Present: wheezes. Absent: accessory muscle use, rales, rhonchi - Cardiovascular Cardiovascular exam: Present: RRR, +S1, +S2. Absent: diastolic murmur, gallop, rubs, systolic murmur - GI/Abdominal GI/Abdominal exam: Present: normal bowel sounds, soft, tenderness (worse in RLQ) , no peritoneal signs. Absent: distended - Extremities Exam Extremities exam: Present: pedal edema (trace pitting edema), tenderness, warm, radial pulses palpable and symetrical. Absent: calf tenderness, cyanotic - Neurological Exam Neurological exam: Present: alert, no focal deficits. Absent: facial droop, speech deficit - Skin Skin exam: Present: dry, intact Internal Med - H&P Results - Labs CBC & Chem 7: 09/03/16 03:01 09/03/16 03:01 - ABG Interpretation ABG results: 09/03/16 05:16 ABG pH 7.39 ABG pCO2 39 ABG pO2 69 L ABG HCO3 23.6 ABG Total CO2 24.8 ABG O2 Saturation 93 L ABG Base Excess -1.2 <Ghanshyam Hart - Last Filed: 09/03/16 07:06> Date of Encounter: 09/03/16 Internal Medicine - H&P: HPI History of present illness: Ms. France is a 60 year old female All Systems PM: A 10-system review of systems was performed and is negative for pertinent findings except as documented above in the HPI. - Constitutional Vitals: Temp Pulse Resp BP Pulse Ox 97.9 F 90 36 191/111 97 09/03/16 06:00 09/03/16 06:00 09/03/16 06:00 09/03/16 06:00 09/03/16 06:00 Internal Med - H&P Results - Labs CBC & Chem 7: 09/03/16 03:01 09/03/16 03:01 - Attending Attestation I examined this patient and my medical decision-making was reviewed with the Resident Physician, Dr. Christopher. I agree with the documented findings, disposition and treatment plan as described except to the extent set forth below. Patient presented to the hospital with respiratory distress. She appears to be On BiPAP, heart is regular S1-S2 lungs are diminished bilaterally. Abdomen is obese. I personally reviewed her x-ray which shows pulmonary edema. Her blood pressure is uncontrolled and we will continue to to titrate nitroglycerin drip. We will give clonidine as clonidine withdrawal can make it very difficult to treat hypertensive urgency. We will use IV hydralazine when necessary. Continue with noninvasive positive pressure ventilation support. Consider invasive ventilation. The patient does not maintain her airway or respiratory condition declines.
[2016-09-03] MEDS ORDERED: Acetaminophen 325 MG TABLET PO PRN (06:11)
[2016-09-03] MEDS ORDERED: *HR* Dextrose 50 % in Water (Syg) 50 ML SYRINGE IVP PRN (06:11)
[2016-09-03] MEDS ORDERED: D5% in Water 1,000 ML IV PRN (06:11)
[2016-09-03] MEDS ORDERED: Dextrose Gel 15 GM PO PRN ×2 (06:11)
[2016-09-03] MEDS ORDERED: Naloxone 0.4 MG/ML INJ IVP PRN (06:11)
[2016-09-03] MEDS ORDERED: Ondansetron 4 MG/2 ML VIAL IVP PRN (06:11)
[2016-09-03] MEDS: *HR* Enoxaparin 40 MG/0.4 ML SYRINGE SQ SCH (06:25)
[2016-09-03 07:36] LABS: INR 1.2; Prothrombin Time 13.3 Seconds (9.4-12.1)
[2016-09-03 07:38] LABS: Activated Partial Thrombo Time 28.4 Seconds (26.0-36.0)
[2016-09-03 07:49] LABS: Chol/HDL Ratio 5.3 (0-4.9)
[2016-09-03] MEDS ORDERED: niCARdipine 20 MG/200 ML MLS IVC ONE (07:53)
[2016-09-03] MEDS: niCARdipine 20 MG/200 ML MLS IVC SCH ×4 (08:07→18:52)
[2016-09-03] MEDS: Pantoprazole 40 MG VIAL IVP SCH (08:22)
[2016-09-03] MEDS: Furosemide 40 MG/4 ML VIAL IVP SCH ×2 (08:22→21:14)
[2016-09-03] MEDS: Gabapentin 300 MG CAPSULE PO SCH ×3 (08:23→21:13)
[2016-09-03] MEDS: cloNIDine HCl 0.1 MG TABLET PO SCH ×3 (08:24→21:13)
[2016-09-03] MEDS: *HR* Ticagrelor 90 MG TABLET PO SCH ×2 (08:24→21:13)
[2016-09-03] MEDS: Aspirin Enteric Coated 81 MG Tablet PO SCH (08:24)
[2016-09-03 08:44] LABS: Hemoglobin A1C 6.3 %
[2016-09-03] MEDS ORDERED: Metoprolol XL (24 HR) Succ 50 MG TAB.ER.24H PO SCH (09:00)
--- NOTE | 2016-09-03 09:28 | Pulmonology Consult Note ---
<Kenn Tavares - Last Filed: 09/03/16 12:53> Date of Encounter: 09/03/16 Time of Encounter: 09:40 Assessment and Plan (1) Hypertensive emergency Current Visit: No Status: Acute Presented with SBP >200 and switched from nitro drip to cardene drip. BPs appears to be labile. End organ damage as noted by elevated troponin, pulmonary edema, and KEEGAN. Clonidine patch at home, switched to clonidine PO 0.2 TID Discussed with Nephrology- Hydralazine IV 25 mg TID switched to PO 25mg BID. Per cardiology recommendation- home Toprol discontinued, started Coreg. NPO currently-pending renal ultrasound and limited echo. Goal target rate within 24 hours of SBP 160-170 (2) Acute diastolic (congestive) heart failure Current Visit: Yes Status: Acute Likely exacerbated by hypertensive emergency Her last echo 2 weeks ago showed preserved EF with mild diastolic dysfunction IV Lasix 60 mg BID Measure I/O's and daily weights Cardiology following-pending limited echo. (3) Acute respiratory failure Current Visit: Yes Status: Acute Likely secondary to Pulmonary edema vs acute exacerbation of undiagnosed COPD Duonebs Q6H prn. Stable on 13L high flow nasal cannula. Qualifiers: Respiratory failure complication: hypoxia Qualified Code(s): J96.01 - Acute respiratory failure with hypoxia (4) Acute worsening of stage 3 chronic kidney disease Current Visit: Yes Status: Acute Appears to have possible history of CKD III Likely etiology of acute worsening is pre-renal due to uncontrolled hypertension Nephrology consulted, seen by Dr. Harris. Will avoid nephrotoxic agents, holding home Lisinopril Pending renal artery ultrasound. Labs pending: Renin, agiiotension, aldosterone, metanephrine, urine sodium, protein/Cr ratio, and microalbumin. Nephrology following. (5) Elevated troponin Current Visit: Yes Status: Acute Treading troponins: 0.27>0.38 Cardiology following- no plan for LHC at this time, pending limited echo. (6) Insulin dependent diabetes mellitus Current Visit: Yes Status: Chronic BG 241>154 Accu-checks Q6H Currently on low intensity SSI, consider restarting basal insulin when patient no longer NPO. (7) Anemia Current Visit: No Status: Chronic Hgb today 10.1 Currently on Brilinta following PCI and stent placement in June 2016. Received 2 units pRBC on previous admission 2 weeks ago. Previous note from 08/21/16 mentioned possible hemoglobin C/hemoglobinopathy-not confirmed per chart. 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 History of Present Illness Consult date: 09/03/16 Requesting physician: Jc Christopher Reason for consult: dyspnea Chief complaint: dyspnea, N/V History of present illness: Ms. France is a 60 year old female admitted from the ED for Hypertensive emergency with associated headache, acute on chronic kidney disease, acute CHF with dyspnea. She does notes multiple episodes of nausea and vomiting Wednesday night (09/01/16) to Wednesday morning. Pertinent PMHx of HTN, HLD, DM type 2 ( with associated retinopathy, neuropathy, and gastroparesis), CAD s/p stenting , and paget disease of bone. Currently on aspirin and Brillinta. Patient was admitted two weeks ago for hypertensive emergency, requiring a nicardipine drip initially and was discharged with multiple antihypertensive medications. Renal artery ultrasound ordered by PCP, Dr. Christensen, not completed to date. Patient on a number of anti-hypertensives as outpatient including: lisinopril, Imdur, lasix, labetalol, hydralazine, nitroglycerin, and clonidine. Despite medications patient states BP at home runs 170-200s over 90-110s. Patient denies any chest pain currently, but troponin in the ED found to be 0.27. Patient started on CPAP in ED, transitioned to BiPAP, currently tolerating high flow nasal cannula; not normally on oxygen at home. Notes nausea/vomiting approx once weekly which she associates with her gastroparesis; these episodes often lean to racing heart beats and excess sweating. She denies any fevers, chills, diarrhea, blood in urine or stool. Does admit to some increased fatigue. Past Med Surg Social Fam HX - Past Medical History Source: patient Medical history: coronary artery disease, diabetes, GERD, hyperlipidemia, hypertension, renal disease, other Psychiatric history: depression - Past Surgical History Surgical History: angioplasty/stent (June 2016 -- [facility]), appendectomy, hysterectomy, other (spinal/pain stimulator) - Social History Smoking Status: Former smoker Smokeless Tobacco Status: No Alcohol use: occasionally Drug use: marijuana - Family History Mother Living Status: Hx Family Respiratory Disorders: Yes Hx Family Cancer: Yes Father Living Status: Hx Family Cardiac Disorders: Yes Hx Family Respiratory Disorders: No Medications and Allergies Duloxetine HCl [Cymbalta] 60 mg PO DAILY 02/22/15 [History] Gabapentin [Neurontin] 300 mg PO TID 02/22/15 [History] Insulin ASPART [NovoLOG] 8 - 14 unit SQ TIDWM PRN 02/22/15 [History] Insulin Glargine,Hum.rec.anlog [Lantus Solostar] 40 unit SQ QAM 02/22/15 [ History] Nitroglycerin [Nitrostat] 0.4 mg SL Q5-6MIN PRN 02/22/15 [History] Amlodipine [Norvasc] 5 mg PO DAILY 06/11/15 [History] Metoprolol XL (24 HR) Succ [Toprol Xl] 50 mg PO DAILY tab.er.24h 12/09/15 [Rx] Lisinopril [Zestril] 10 mg PO DAILY 03/06/16 [History] Hydrocodone/Acetaminophen [[place] 5-325 Tablet] 1 tab PO Q6H PRN #7 tab 03/16/16 [Rx] Furosemide [Lasix] 40 mg PO DAILY 08/20/16 [History] Hydralazine HCl 50 mg PO TID 08/20/16 [History] Isosorbide MONOnitrate (24 HR) [Imdur] 30 mg PO DAILY 08/20/16 [History] Labetalol HCl 300 mg PO BID 08/20/16 [History] Metoclopramide [Reglan] 10 mg PO Q6HR 08/20/16 [History] Promethazine [Phenergan] 25 mg PO Q12H PRN 08/20/16 [History] Ticagrelor [Brilinta] 90 mg PO BID 08/20/16 [History] Sennosides/Docusate Sodium [Senna Plus] 1 each PO BID PRN #30 tablet 08/22/16 [ Rx] Aspirin 81 mg PO DAILY 09/03/16 [History] CloNIDine [Catapres-Tts 3] 1 each TP QWEEK 09/03/16 [History] Allergies fentanyl Allergy (Verified 08/20/16 09:41) Shakiness Oxycodone [From Percocet] Allergy (Verified 08/20/16 09:41) Shakiness All Systems: A 10-system review of systems was performed and is negative for pertinent findings except as documented above in the HPI. - Constitutional Constitutional: fatigue, headache(s), weakness Physical Examination Vital Signs: Vital Signs, Last 4 Hours Pulse Resp BP Pulse Ox 09/03/16 09:00 88 27 180/116 93 L 09/03/16 08:00 82 28 195/118 90 L 09/03/16 07:15 90 37 196/116 98 General appearance: no acute distress, alert Eyes: nonicteric ENT: oropharynx moist Neck: supple Effort: normal Inspection: normal Auscultation: bilateral: wheezes Cardiovascular: other (tachycardia) Gastrointestinal: normoactive bowel sounds, soft, tender (RLQ), non-distended Integumentary: normal Extremities: no cyanosis, edema (1+ pretibial BLE), other (capillary refill < 2 sec) Musculoskeletal: no deformities normal mental status, non-focal exam, motor strength normal and symmetric mood appropriate, affect normal Results - Laboratory Findings CBC and BMP: 09/03/16 03:01 09/03/16 03:01 ABG ABG pH 7.39 pH Units (7.32-7.45) 09/03/16 05:16 ABG pCO2 39 mmHg (35-45) 09/03/16 05:16 ABG pO2 69 mmHg (85-104) L 09/03/16 05:16 ABG O2 Saturation 93 % (95-98) L 09/03/16 05:16 PT/INR, D-dimer PT 13.3 Seconds (9.4-12.1) H 09/03/16 07:12 Abnormal lab findings: Abnormal lab results Hgb 10.1 g/dL (11.5-15.4) L 09/03/16 03:01 Hct 29.7 % (35.3-44.9) L 09/03/16 03:01 MCV 73.9 fL (83.0-100.0) L 09/03/16 03:01 MCH 25.1 pg (28.0-33.3) L 09/03/16 03:01 RDW 16.2 % (11.5-14.5) H 09/03/16 03:01 Neutrophils # 9.5 K/mcL (1.6-8.9) H 09/03/16 03:01 Lymphocytes # 0.5 K/mcL (0.6-4.6) L 09/03/16 03:01 Nucleated RBCs/100 WBC 0.2 /100 WBC (0) H 09/03/16 03:01 Hypersegmented Neuts Present (Not Present) A 09/03/16 03:01 Immature Plt Fraction 6.3 % (1.1-6.1) H 09/03/16 03:01 PT 13.3 Seconds (9.4-12.1) H 09/03/16 07:12 ABG pO2 69 mmHg (85-104) L 09/03/16 05:16 ABG O2 Saturation 93 % (95-98) L 09/03/16 05:16 VBG pCO2 37 mmHg (41-51) L 09/03/16 03:01 VBG pO2 42 mmHg (25-40) H 09/03/16 03:01 Sodium 135 mEq/L (136-145) L 09/03/16 03:01 BUN 33 mg/dL (7-20) H 09/03/16 03:01 Creatinine 1.63 mg/dL (0.57-1.11) H 09/03/16 03:01 Est GFR ( Amer) 39 (> 60) L 09/03/16 03:01 Est GFR (Non-Af Amer) 32 (> 60) L 09/03/16 03:01 Glucose 201 mg/dL (70-99) H 09/03/16 03:01 POC Glucose 241 (58-89) H 09/03/16 05:52 Hemoglobin A1c 6.3 % (-5.6) H 09/03/16 07:12 Troponin I 0.27 ng/mL (0-0.03) H* 09/03/16 03:01 B-Natriuretic Peptide 4793 pg/mL (0-100) H 09/03/16 03:01 Cholesterol 260 mg/dL (< 200) H 09/03/16 07:12 LDL Cholesterol, Calc 187 mg/dL (0-99) H 09/03/16 07:12 Cholesterol/HDL Ratio 5.3 (0-4.9) H 09/03/16 07:12 - Clinical Findings Intake & Output: Intake & Output 09/02/16 09/03/16 09/03/16 23:59 07:59 15:59 Intake Total 85.4 / 250.4 134.6 / 134.6 Output Total 600 / 600 Balance -514.6 / -349.6 134.6 / 134.6 Consult Discharge Plan - Plan Referrals: Tiffani Christensen DO [Primary Care Provider] - Massimo Freed AUDIO VISUAL DESIGN ENGINEER [Advanced Practice Nurse] - 09/16/16 10:30 am <Blayne Damian - Last Filed: 09/03/16 17:00> Date of Encounter: 09/03/16 All Systems: A 10-system review of systems was performed and is negative for pertinent findings except as documented above in the HPI. Physical Examination Vital Signs: Vital Signs, Last 4 Hours Temp Pulse Resp BP Pulse Ox 09/03/16 15:55 98.2 F 09/03/16 14:00 81 28 158/88 93 L 09/03/16 13:00 82 27 160/95 91 L Results - Laboratory Findings CBC and BMP: 09/03/16 03:01 09/03/16 03:01 ABG ABG pH 7.39 pH Units (7.32-7.45) 09/03/16 05:16 ABG pCO2 39 mmHg (35-45) 09/03/16 05:16 ABG pO2 69 mmHg (85-104) L 09/03/16 05:16 ABG O2 Saturation 93 % (95-98) L 09/03/16 05:16 PT/INR, D-dimer PT 13.3 Seconds (9.4-12.1) H 09/03/16 07:12 Abnormal lab findings: Abnormal lab results Hgb 10.1 g/dL (11.5-15.4) L 09/03/16 03:01 Hct 29.7 % (35.3-44.9) L 09/03/16 03:01 MCV 73.9 fL (83.0-100.0) L 09/03/16 03:01 MCH 25.1 pg (28.0-33.3) L 09/03/16 03:01 RDW 16.2 % (11.5-14.5) H 09/03/16 03:01 Neutrophils # 9.5 K/mcL (1.6-8.9) H 09/03/16 03:01 Lymphocytes # 0.5 K/mcL (0.6-4.6) L 09/03/16 03:01 Nucleated RBCs/100 WBC 0.2 /100 WBC (0) H 09/03/16 03:01 Hypersegmented Neuts Present (Not Present) A 09/03/16 03:01 Immature Plt Fraction 6.3 % (1.1-6.1) H 09/03/16 03:01 PT 13.3 Seconds (9.4-12.1) H 09/03/16 07:12 ABG pO2 69 mmHg (85-104) L 09/03/16 05:16 ABG O2 Saturation 93 % (95-98) L 09/03/16 05:16 VBG pCO2 37 mmHg (41-51) L 09/03/16 03:01 VBG pO2 42 mmHg (25-40) H 09/03/16 03:01 Sodium 135 mEq/L (136-145) L 09/03/16 03:01 BUN 33 mg/dL (7-20) H 09/03/16 03:01 Creatinine 1.63 mg/dL (0.57-1.11) H 09/03/16 03:01 Est GFR ( Amer) 39 (> 60) L 09/03/16 03:01 Est GFR (Non-Af Amer) 32 (> 60) L 09/03/16 03:01 Glucose 201 mg/dL (70-99) H 09/03/16 03:01 POC Glucose 154 (58-89) H 09/03/16 11:15 Hemoglobin A1c 6.3 % (-5.6) H 09/03/16 07:12 Troponin I 0.38 ng/mL (0-0.03) H* 09/03/16 11:45 B-Natriuretic Peptide 4793 pg/mL (0-100) H 09/03/16 03:01 Cholesterol 260 mg/dL (< 200) H 09/03/16 07:12 LDL Cholesterol, Calc 187 mg/dL (0-99) H 09/03/16 07:12 Cholesterol/HDL Ratio 5.3 (0-4.9) H 09/03/16 07:12 Free T3 1.43 pg/mL (1.71-3.71) L 09/03/16 11:45 - Clinical Findings Intake & Output: Intake & Output 09/03/16 09/03/16 09/03/16 07:59 15:59 23:59 Intake Total 85.4 / 250.4 534.6 / 534.6 Output Total 600 / 600 250 / 250 Balance -514.6 / -349.6 284.6 / 284.6 - Attending Attestation I examined this patient and my medical decision-making was reviewed with the SEMICONDUCTOR WAFERS MARKER/PA/Advanced Practice Nurse/Resident Physician. I agree with the documented findings, disposition and treatment plan as described except to the extent set forth below. Patient seen and examined. Labs, radiology, chart personally reviewed. Agree with resident's history and physical, assessment, plan with following comments: HONEYCOMB DECAPPER: Patient follows commands, Pulmonary: Acceptable oxygenation and ventilation, patient is requiring noninvasive ventilation and will attempt to transition to high flow oxygen for the acute respiratory failure. Suspect this patient has obstructive sleep apnea especially with uncontrolled hypertension that she requires to have a sleep study as outpatient. Cardiovascular: Malignant hypertension with history of coronary artery disease. I changed nitroglycerin drip to nicardipine drip controlled patient's blood pressure. Due to chronic hypertension systolic blood pressure holds between 140 -1 60 mmHg. GI: Nutrition per dietary and GI prophylaxis per routine Heme: DVT prophylaxis per routine Renal; urine out put and renal funtion reviewed Endorcine: blood glucose is monitored Lines: all lines checked and no evidence of infections Skin: skin care to prevent pressure ulcers per nursing routine care I spent 35 min of Critical Care time with this patient. It involved decision making of high complexity to assess, manipulate, and support vital organ system failure and/or to prevent further life threatening deterioration of the patient' s condition. The time involved in the performance of separately reportable procedures was not counted toward critical care time.
--- NOTE | 2016-09-03 10:23 | Nephrology Consult Note ---
<Tiffani Christensen - Last Filed: 09/03/16 15:54> Date of Encounter: 09/03/16 Time of Encounter: 10:22 Assessment and Plan (1) Acute worsening of stage 3 chronic kidney disease Current Visit: Yes Status: Acute She has not been seen by a bias cutter for kidney disease, but seems to be running at a baseline Cr 1.1-1.3 with GFR in the 40's-50's. Cr 1.63, GFR 32, BUN 33 Recommendations: -Avoid nephrotoxic agents -Renal US pending -Continue to monitor Cr, GFR (2) Hypertensive emergency Current Visit: Yes Status: Acute Patient reports chronic BP elevation since February with recent hospitalization for hypertensive emergency. Patient currently has labile blood pressures on nicardipine drip. Recommendations: - 2 gram sodium restriction with renal diet - Change hydralazine to 50mg PO BID -Continue clonidine - Agree with coreg 12.5mg BID -Goal systolic BP in the 150s - Will work up secondary sources driving HTN such as pheo, RAAS, thyroid, adrenal sources. Cortisol WNL at 23.8. HgbA1C 6.3%. Labs pending:TSH, T4/T3 Free , Renin, angiotensin, aldosterone, metanephrines, urine sodium, protein/Cr ratio , and microalbumin. (8) Acute kidney injury Current Visit: Yes Status: Acute History of Present Illness - Reason for Consult Consult date: 09/03/16 Acute Kidney Injury, accelerated hypertension Requesting physician: Kenn Tavares - Chief Complaint SOB - History of Present Illness Ms. France is a 60 y/o female with a PMH of HTN, CKD III, CAD s/p stents 07/03, Diastolic CHF, DM, Paget's disease who is being consulted for hyptertensive emergency and KEEGAN in the setting of CKDIII. The patient presented to the ED yesterday with worsening SOB. She notes difficulty with BP control since February 2016, with worsening of her control over the last 2 months. The patient was admitted two weeks ago for hypertensive emergency, requiring a nicardipine drip initially and was discharged with multiple antihypertensive medications. An outpatient Renal artery ultrasound is yet to be completed. She has been on lisinopril, Imdur, lasix, labetalol, hydralazine, nitroglycerin, and clonidine for BP control. Despite this regimen, she states that her BP at home runs 170- 200s systolic, 90-110s diastolic. She denies any fevers, chills, dysuria, hematuria. She has not been seen by a bias cutter for kidney disease, but seems to be running at a baseline Cr 1.1-1.3 with GFR in the 40's-50's. Past Med Surg Social Fam HX - Past Medical History Medical history: coronary artery disease, diabetes, GERD, hypertension, other Psychiatric history: depression - Past Surgical History Surgical History: angioplasty/stent (June 2016 -- [facility]), appendectomy, hysterectomy, other (pain stimulator) - Social History Smoking Status: Former smoker Smokeless Tobacco Status: No Alcohol use: occasionally Drug use: marijuana - Family History Mother Living Status: Hx Family Respiratory Disorders: Yes Hx Family Cancer: Yes Father Living Status: Hx Family Cardiac Disorders: Yes Hx Family Respiratory Disorders: No Medications and Allergies Duloxetine HCl [Cymbalta] 60 mg PO DAILY 02/22/15 [History] Gabapentin [Neurontin] 300 mg PO TID 02/22/15 [History] Insulin ASPART [NovoLOG] 8 - 14 unit SQ TIDWM PRN 02/22/15 [History] Insulin Glargine,Hum.rec.anlog [Lantus Solostar] 40 unit SQ QAM 02/22/15 [ History] Nitroglycerin [Nitrostat] 0.4 mg SL Q5-6MIN PRN 02/22/15 [History] Amlodipine [Norvasc] 5 mg PO DAILY 06/11/15 [History] Metoprolol XL (24 HR) Succ [Toprol Xl] 50 mg PO DAILY tab.er.24h 12/09/15 [Rx] Lisinopril [Zestril] 10 mg PO DAILY 03/06/16 [History] Hydrocodone/Acetaminophen [[place] 5-325 Tablet] 1 tab PO Q6H PRN #7 tab 03/16/16 [Rx] Furosemide [Lasix] 40 mg PO DAILY 08/20/16 [History] Hydralazine HCl 50 mg PO TID 08/20/16 [History] Isosorbide MONOnitrate (24 HR) [Imdur] 30 mg PO DAILY 08/20/16 [History] Labetalol HCl 300 mg PO BID 08/20/16 [History] Metoclopramide [Reglan] 10 mg PO Q6HR 08/20/16 [History] Promethazine [Phenergan] 25 mg PO Q12H PRN 08/20/16 [History] Ticagrelor [Brilinta] 90 mg PO BID 08/20/16 [History] Sennosides/Docusate Sodium [Senna Plus] 1 each PO BID PRN #30 tablet 08/22/16 [ Rx] Aspirin 81 mg PO DAILY 09/03/16 [History] CloNIDine [Catapres-Tts 3] 1 each TP QWEEK 09/03/16 [History] Allergies fentanyl Allergy (Verified 08/20/16 09:41) Shakiness Oxycodone [From Percocet] Allergy (Verified 08/20/16 09:41) Shakiness Review of Systems All Systems: reviewed and no additional remarkable complaints except as stated Exam - Vital Signs Vital signs: Initial Vital Signs Temp Pulse Resp BP Pulse Ox 97.5 F L 97 24 203/108 83 L 09/03/16 01:04 09/03/16 01:04 09/03/16 01:04 09/03/16 01:04 09/03/16 01:04 Vital Signs - Last 8 Hours Pulse Resp BP Pulse Ox 09/03/16 10:00 85 26 205/129 93 L 09/03/16 09:00 88 27 180/116 93 L 09/03/16 08:00 82 28 195/118 90 L 09/03/16 07:15 90 37 196/116 98 Intake and Output 09/02/16 09/03/16 09/03/16 23:59 07:59 15:59 Intake Total 85.4 / 250.4 134.6 / 134.6 Output Total 600 / 600 Balance -514.6 / -349.6 134.6 / 134.6 Intake: IV Fluids 85.4 / 100.4 134.6 / 134.6 Nitroglycerin 25 mg In 85.4 / 100.4 134.6 / 134.6 250 ml @ 40 MCG/MIN 24 mls/hr IVC .[id number] [facility] Rx#:[id number] Output: Urine 600 / 600 Urethral (Goins) 600 / 600 - General Appearance General appearance: well-developed, well-nourished, obese Neck: no JVD, no thyromegaly, supple Respiratory: wheezing, rhonchi Cardiology: no murmurs, no rub, no gallops, edema, regular rate, regular rhythm , normal S1, normal S2 Gastrointestinal: normoactive bowel sounds, no tenderness, no guarding Integumentary: no rash, warm and dry Neurologic: no focal deficit, alert and oriented x3 Psychiatric: mood/affect appropriate, cooperative Results - Lab Results 09/03/16 03:01 09/03/16 03:01 Most recent lab results ABG pH 7.39 pH Units (7.32-7.45) 09/03/16 05:16 ABG pCO2 39 mmHg (35-45) 09/03/16 05:16 ABG pO2 69 mmHg (85-104) L 09/03/16 05:16 ABG HCO3 23.6 mEQ/L (21-27) 09/03/16 05:16 ABG O2 Saturation 93 % (95-98) L 09/03/16 05:16 Calcium 8.9 mg/dL (8.6-10.8) 09/03/16 03:01 - Image Kidney/bladder ultrasound: pending Consult Discharge Plan - Plan Referrals: Tiffani Christensen DO [Primary Care Provider] - 09/17/16 4:00 pm Massimo Freed CNP [Advanced Practice Nurse] - 09/16/16 10:30 am <Kevin Kern - Last Filed: 09/09/16 14:51> Date of Encounter: 09/03/16 Exam - Vital Signs Vital signs: Initial Vital Signs Temp Pulse Resp BP Pulse Ox 97.5 F L 97 24 203/108 83 L 09/03/16 01:04 09/03/16 01:04 09/03/16 01:04 09/03/16 01:04 09/03/16 01:04 Vital Signs - Last 8 Hours Temp Pulse Resp BP Pulse Ox 09/09/16 11:33 98.5 F 73 16 158/80 95 09/09/16 10:47 18 94 L 09/09/16 09:15 95 09/09/16 08:14 99.5 F 82 16 160/82 95 Intake and Output 09/08/16 09/09/16 09/09/16 23:59 07:59 15:59 Intake Total 540 / 540 240 / 240 Output Total 600 / 600 450 / 450 Balance -60 / -60 -450 / -450 240 / 240 Intake: Oral 540 / 540 240 / 240 Output: Catheter 600 / 600 450 / 450 Other: Meal Dinner Breakfast Percent of Meal Consumed 100% 80% Weight 110.1 kg Blood Glucose* 330 214 Patient Weight 09/09/16 23:59 Weight 110.1 kg Results - Lab Results 09/09/16 05:15 09/09/16 05:15 Most recent lab results ABG pH 7.41 pH Units (7.32-7.45) 09/03/16 18:35 ABG pCO2 39 mmHg (35-45) 09/03/16 18:35 ABG pO2 84 mmHg (85-104) L 09/03/16 18:35 ABG HCO3 24.7 mEQ/L (21-27) 09/03/16 18:35 ABG O2 Saturation 96 % (95-98) 09/03/16 18:35 Calcium 8.5 mg/dL (8.6-10.8) L 09/09/16 05:15 Phosphorus 4.2 mg/dL (2.3-4.7) 09/07/16 05:19 Magnesium 1.7 mg/dL (1.6-2.6) 09/07/16 05:19 Urine Creatinine 20 mg/dL 09/04/16 12:50 Urine Sodium 62.0 mEq/L 09/03/16 10:10 Urine Total Protein 116 mg/dL (1-14) H 09/04/16 12:50 - Attending Attestation I examined this patient and my medical decision-making was reviewed with the PLANT RELIABILITY ENGINEER/PA/Advanced Practice Nurse/Resident Physician. I agree with the documented findings, disposition and treatment plan as described except to the extent set forth below. Pt seen and examined admitted with hypertensive emergency to the icu presenting on nicardipine. Will initiate secondary HTN workup inckuding aldosterone, renin , catecholamines, thyroid function, cortisol and imaging PE significant for LE edema.
--- NOTE | 2016-09-03 10:52 | Cardiology Consult Note ---
<Belkis Jack - Last Filed: 09/03/16 11:27> Date of Encounter: 09/03/16 Time of Encounter: 10:00 Assessment and Plan (1) Elevated troponin Current Visit: Yes Status: Acute Initial troponin 0.27 in the setting of KEEGAN and severely elevated BP; likely demand ischemia. No acute ischemic ECG changes noted. She denies chest pain or anginal equivalent. Hx of ANGELIKA to Ramus and RCA at [facility] in 07/15/2016--needs uninterrupted DAPT (asa + brilinta) for at least 1 year s/p PCI. TTE 07/07/16: EF 55-60%, moderate concentric LVH Continue asa, statin, and betablocker. Continue to trend troponin to ensure downward trend. Check limited TTE to assess EF, if results satisfactory, cardiology will likely sign-off. Follow-up scheduled. (2) Hypertensive urgency Current Visit: Yes Status: Acute SBP 219/137 at home prior to admission. BP >190s since admission while on Cardene gtt. Nephrology consulted for further recommendations regarding malignant/poorly controlled HTN. Home medications include: Lisinopril 20 mg daily, catapress patch 0.3 daily, hydralazine 50 mg BID, lasix 40 mg daily, imdur 30 mg daily, toprol 50 mg daily. Consider changing toprol to coreg for improved BP control; consider re-starting norvasc (d/c'ed in past due to "swelling"). Follow-up with [facility] as scheduled with ANJU Stephens. (3) Hypoxia Current Visit: Yes Status: Acute Required BiPap upon presentation, SPO2 86%. (4) Acute kidney injury Current Visit: Yes Status: Acute Mild KEEGAN, SCr 1.63 upon presentation. Baseline appears to be 1.2-1.3 Nephrology consulted. Discussion w patient/family: The assessment and plan as outlined above was discussed with the patient and/or family members who expressed understanding and agreement. All questions were answered. Thank you for involving us in the care of your patient. Please call with any questions. The patient will be discussed and reviewed with Dr. James; changes to be made accordingly. History of Present Illness Consult date: 09/03/16 Requesting physician: Jc Christopher Consult reason: Elevated troponin Chief complaint: N/V, malaise History of present illness: Ms. France is a 60 year old female with PMH significant for CAD s/p PCI (06/2016- [facility]), PAD s/p RLE angioplasty, DMII, HTN (poorly controlled), and HLD who presented to [facility] ED with a 2-day history of worsening cough and malaise. She was reportedly at work when she was feeling worse and was going to drive home, she reports she had to well puller head due to persistent vomiting. When she got home, her BP was found to be 219/137 and SPO2 86%. She was started on a NTG gtt without improvement in BP; she was then started on cardene gtt and transferred to the ICU. Recent testing includes: TTE 06/2016 ([facility]): EF 55-60%, moderate cLVH LHC 07/15/16 ([facility]): EF 60%, PCI to Ramus and RCA with ANGELIKA; otherwise mild to moderate non-obstructive CAD. C 02/2015: EF 65%. LAD proximal 60% stenosis (FFR 0.84). Circumflex small , normal. Ramus 30% stenosis. RCA proximal 40% stenosis, mid 50% stenosis, and distal 30% stenosis. Medical therapy recommended. TTE 05/2015: EF 60%. Moderate LVH. Mild diastolic dysfunction. Possible PFO by color Doppler. No significant valvular dysfunction Past Med Surg Social Fam HX - Past Medical History Medical history: coronary artery disease, diabetes, GERD, hypertension, renal disease Psychiatric history: depression - Past Surgical History Surgical History: angioplasty/stent (June 2016 -- [facility]), appendectomy, hysterectomy, other (pain stimulator), vascular surgery (RLE angioplasty) - Social History Smoking Status: Former smoker Smokeless Tobacco Status: No Alcohol use: occasionally Drug use: marijuana - Family History Mother Living Status: Hx Family Respiratory Disorders: Yes Hx Family Cancer: Yes Father Living Status: Hx Family Cardiac Disorders: Yes Hx Family Respiratory Disorders: No Medications and Allergies Duloxetine HCl [Cymbalta] 60 mg PO DAILY 02/22/15 [History] Gabapentin [Neurontin] 300 mg PO TID 02/22/15 [History] Insulin ASPART [NovoLOG] 8 - 14 unit SQ TIDWM PRN 02/22/15 [History] Insulin Glargine,Hum.rec.anlog [Lantus Solostar] 40 unit SQ QAM 02/22/15 [ History] Nitroglycerin [Nitrostat] 0.4 mg SL Q5-6MIN PRN 02/22/15 [History] Amlodipine [Norvasc] 5 mg PO DAILY 06/11/15 [History] Metoprolol XL (24 HR) Succ [Toprol Xl] 50 mg PO DAILY tab.er.24h 12/09/15 [Rx] Lisinopril [Zestril] 10 mg PO DAILY 03/06/16 [History] Hydrocodone/Acetaminophen [Jackson 5-325 Tablet] 1 tab PO Q6H PRN #7 tab 03/16/16 [Rx] Furosemide [Lasix] 40 mg PO DAILY 08/20/16 [History] Hydralazine HCl 50 mg PO TID 08/20/16 [History] Isosorbide MONOnitrate (24 HR) [Imdur] 30 mg PO DAILY 08/20/16 [History] Labetalol HCl 300 mg PO BID 08/20/16 [History] Metoclopramide [Reglan] 10 mg PO Q6HR 08/20/16 [History] Promethazine [Phenergan] 25 mg PO Q12H PRN 08/20/16 [History] Ticagrelor [Brilinta] 90 mg PO BID 08/20/16 [History] Sennosides/Docusate Sodium [Senna Plus] 1 each PO BID PRN #30 tablet 08/22/16 [ Rx] Aspirin 81 mg PO DAILY 09/03/16 [History] CloNIDine [Catapres-Tts 3] 1 each TP QWEEK 09/03/16 [History] Allergies fentanyl Allergy (Verified 08/20/16 09:41) Shakiness Oxycodone [From Percocet] Allergy (Verified 08/20/16 09:41) Shakiness All Systems Review: A 10-system review of systems was performed and is negative for pertinent findings except as documented above in the HPI. - Cardiovascular Cardiovascular: as per HPI Physical Examination Vital Signs, Last 4 Hours Pulse Resp BP Pulse Ox 09/03/16 10:00 85 26 205/129 93 L 09/03/16 09:00 88 27 180/116 93 L 09/03/16 08:00 82 28 195/118 90 L 09/03/16 07:15 90 37 196/116 98 General: Conversant, Other (appears ill) Cardiac: Reg Rate and Rhythm, Normal S1 and S2 Lungs: Normal Breath Sounds Neuro: Alert and responsive Abdomen: Soft, Other (LLQ tenderness) Skin: No rashes noted on visualized skin Musculoskeletal: No Chest Wall Tenderness Extremities: Other (BLE pre-tibial edema. ) Other: shelby--hazy yellow urine Results 09/03/16 03:01 09/03/16 03:01 Lab Results 09/03/16 07:12 INR 1.2 APTT 28.4 - Imaging and Cardiology Echo: report reviewed Cardiac cath: report reviewed Other Results: Telemetry review: avg HR=88 SR. - EKG Interpretation EKG results cardiology: personally reviewed Consult Discharge Plan - Plan Referrals: Tiffani Christensen DO [Primary Care Provider] - Massimo Freed DENTURE PROCESSOR [Advanced Practice Nurse] - 09/16/16 10:30 am <Jyoti James - Last Filed: 09/03/16 14:07> Date of Encounter: 09/03/16 Assessment and Plan Discussion w patient/family: The assessment and plan as outlined above was discussed with the patient and/or family members who expressed understanding and agreement. All questions were answered. Thank you for involving us in the care of your patient. Please call with any questions. History of Present Illness History of present illness: Ms. France is a 60 year old female All Systems Review: A 10-system review of systems was performed and is negative for pertinent findings except as documented above in the HPI. Physical Examination Vital Signs, Last 4 Hours Temp Pulse Resp BP Pulse Ox 09/03/16 13:00 82 27 160/95 91 L 09/03/16 12:00 98.3 F 77 28 159/87 93 L 09/03/16 11:00 74 29 154/92 92 L Results 09/03/16 03:01 09/03/16 03:01 Lab Results 09/03/16 09/03/16 09/03/16 07:12 11:45 11:45 INR 1.2 APTT 28.4 Troponin I 0.38 H* TSH 0.781 - Attending Attestation I examined this patient and my medical decision-making was reviewed with the TELECOMMUNICATIONS EQUIPMENT INSTALLER/PA/Advanced Practice Nurse/Resident Physician. I agree with the documented findings, disposition and treatment plan. Ms. France presents with shortness of breath requiring high amounts of oxygen with ARF on CKD. Her CXR demonstrates mild pulmonary congestion and BNP is elevated. She has no significant ECG changes and an elevated troponin now of 0.38. Most recent evaluation of EF was normal when admitted to [facility] for PCI in June 2016. We recommend obtaining an echo for re-evaluation of structure and function. She should continue Brilinta and Aspirin-patient denies missing any doses. Patient is not having chest pain. Further recommendations to follow testing.
[2016-09-03] MEDS: Insulin LISPRO 300 UNITS/3 ML VIAL SQ SCH ×2 (11:19→18:29)
[2016-09-03 12:37] LABS: Thyroid Stimulating Hormone 0.781 mcIU/mL (0.350-4.840); Triiodothyronine (T3) Free 1.43 pg/mL (1.71-3.71)
[2016-09-03] MEDS ORDERED: Ipratropium/Albuterol Neb 3 ML IH PRN (13:20)
[2016-09-03 17:34] LABS: Creatinine,Urine 53 mg/dL
[2016-09-03 17:39] LABS: Microalbumin,Urine > 2000 mg/L
[2016-09-03] MEDS ORDERED: *HR* Heparin 5,000 UNIT/ML VIAL SQ SCH (18:00)
[2016-09-03 19:24] LABS: ABG Base Excess 0.1 mEq/L (-2.0 to 3.0); ABG HCO3 24.7 mEQ/L (21-27); ABG Oxygen Saturation 96 % (95-98); ABG PCO2 39 mmHg (35-45); ABG PH 7.41 pH Units (7.32-7.45); ABG PO2 84 mmHg (85-104); ABG TCO2 25.9 mEq/L (20-26); Blood Gas Liter Flow 12 L/MIN
--- NOTE | 2016-09-03 20:07 | Electrocardiograph Report ---
[address] [address] Test Date: 2016-09-03 Pat Name: Sarah France Department: 109 Room: [facility] Gender: Closet Builder: : 1955 Requested By: Bakari Del Valle Order Number: [id number] Reading MD: Ravindra Ring Measurements Intervals [place] Rate: 86 P: 109 UT: 348 QRS: -11 QRSD: 138 T: -20 QT: 423 QTc: 467 Interpretive Statements PROBABLE DUAL CHAMBER PACEMAKER Electronically Signed On 09-03-2016 20:05:19 EST by Ravindra Ring
[2016-09-03 20:50] LABS: Protein/Creatinine Ratio,Urine 7.35 mg/mg (0-0.20)
[2016-09-03] MEDS ORDERED: hydrALAZINE 25 MG TABLET PO SCH (21:00)
[2016-09-03] MEDS: hydrALAZINE 25 MG TABLET PO SCH (21:14)
[2016-09-04] MEDS: Insulin LISPRO 300 UNITS/3 ML VIAL SQ SCH ×3 (00:44→17:22)
[2016-09-04] MEDS: niCARdipine 20 MG/200 ML MLS IVC SCH (02:41)
[2016-09-04] MEDS: *HR* Enoxaparin 40 MG/0.4 ML SYRINGE SQ SCH (06:07)
[2016-09-04 07:29] LABS: Calcium 8.3 mg/dL (8.6-10.8)
--- NOTE | 2016-09-04 08:31 | ECHO - Doppler Report ---
Limited Echocardiogram Name: Sarah France Date of Study: 09/03/2016 Date: 1955 Ht: 67.0 in Medical Record#: [id number] Age: 60 Wt: 238.0 lb Gender: Female BSA: 2.18 Order #: [id number] Location: [facility] Room #: [facility] Reading Physician: Hiram Finn DO, FACC, FASE, FASNC Fork Repairer: Mariah Sorto RDCS Ordering Physician: Belkis Jack CNP Primary Physician: Tiffani Christensen DO Indications: Elevated Troponin Impressions: LVEF 50-55%. Normal LV chamber size and function. Moderate concentric left ventricular hypertrophy. Atypical septal motion consistent with bundle branch block. Left Ventricular Wall Motion: Rest Echo Findings All wall segments showed normal motion. Findings: Study Quality * Technically adequate exam. ECG Findings * Sinus rhythm with BBB. Left Ventricle * LVEF 50-55%. * Normal LV chamber size and function. * Moderate concentric left ventricular hypertrophy. * Atypical septal motion consistent with bundle branch block. Right Ventricle * Normal right ventricular structure and function. History Hypertension Diabetes Hypercholesteremia History of Smoking Years 10 Packs 5 Family History of CAD History of CAD/PTCA Myocardial Infarction 08/20/2016 a Previous Echo was performed. Measurements: BP: 158/ 88 2D Normal Values RVIDd: 3.37 cm <2.7 cm IVSd: 1.50 cm 0.6 - 1.0 cm LVIDd: 5.48 cm 3.7 - 5.6 cm LVPWd: 1.50 cm 0.6 - 1.1 cm LVIDs: 3.91 cm 1.5 - 3.6 cm %FS: 28.60 cm >25 % LA volume: Updated by Hiram Finn DO, FACC, FASE, FASNC on 09/04/2016 8:25:53 AM electronically signed on 09/04/2016 8:26:32 AM with status of Final Wall Motion [place]: 1=Normal, 2=Hypokinesis, 3=Akinesis, 4=Dyskinesis, 5=Aneurysmal, 6=Hyperkinetic, X=Not Visualized (Blank)=Missing
--- NOTE | 2016-09-04 08:48 | Pulmonology Progress Note ---
<Kenn Tavares - Last Filed: 09/04/16 14:09> Date of Encounter: 09/04/16 Time of Encounter: 07:10 Assessment and Plan (1) Hypertensive emergency Current Visit: Yes Status: Acute Presented with SBP >200 and switched from nitro drip to cardene drip, since discontinued. End organ damage as noted by elevated troponin, pulmonary edema, and KEEGAN. Clonidine patch at home, switched to clonidine PO 0.2 TID Discussed with Nephrology- Hydralazine IV 25 mg TID switched to PO 25mg BID. Per cardiology recommendation- home Toprol discontinued, started Coreg. Labetalol prn for hypertension. Goal target rate within 24 hours of SBP 160-170 (2) COPD exacerbation Current Visit: Yes Status: Acute Currently O2 saturation 100% on 13L high flow. Scheduled duonebs and symbicort. Started on 5 days of Azithromycin (3) Acute diastolic (congestive) heart failure Current Visit: Yes Status: Acute Possible acute CHF with preserved EF vs COPD exacerbation. CXR suggestive of cardiomegaly with mild CHF. Recent cardiac testing includes: TTE 06/2016 ([facility]): EF 55-60%, moderate cLVH LHC 07/15/16 ([facility]): EF 60%, PCI to Ramus and RCA with ANGELIKA; otherwise mild to moderate non-obstructive CAD. [facility] 02/2015: EF 65%. LAD proximal 60% stenosis (FFR 0.84). Circumflex small , normal. Ramus 30% stenosis. RCA proximal 40% stenosis, mid 50% stenosis, and distal 30% stenosis. Medical therapy recommended. TTE 05/2015: EF 60%. Moderate LVH. Mild diastolic dysfunction. Possible PFO by color Doppler. No significant valvular dysfunction (4) Acute respiratory failure Current Visit: Yes Status: Acute Likely secondary to Pulmonary edema vs acute exacerbation of undiagnosed COPD Duonebs Q6H prn. Stable on 13L high flow nasal cannula. continue Lasix, duonebs, symbicort. Antibiotics-zithromax Qualifiers: Respiratory failure complication: hypoxia Qualified Code(s): J96.01 - Acute respiratory failure with hypoxia (5) Acute worsening of stage 3 chronic kidney disease Current Visit: Yes Status: Acute Appears to have possible history of CKD III Likely etiology of acute worsening is pre-renal due to uncontrolled hypertension Nephrology consulted, seen by Dr. France today. Dr. France recommended Renal biopsy, IR advised for patient to be off Brilinta for 5 days before doing procedure. Cardiology recommends no interruptions in Brilinta for 1 year. Will avoid nephrotoxic agents, discontinued home Lisinopril. Renal artery ultrasound completed, results pending. (6) Elevated troponin Current Visit: Yes Status: Acute Treading troponins: 0.27>0.38>0.24 Cardiology following- completed echo with EF 50-55%, moderate concentric let ventricular hypertrophy; atypical septal motion consistent with BBB. (7) Insulin dependent diabetes mellitus Current Visit: Yes Status: Chronic BG 109 this AM Continue Low intensity SSI (8) Anemia Current Visit: No Status: Chronic Hgb 10.1>9.6 Currently on Brilinta following PCI and stent placement in June 2016. Received 2 units pRBC on previous admission 2 weeks ago. 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 Afebrile. Tolerating PO intake. Cardene drip discontinued this AM. Objective PUL Vital signs: Last Vital Signs Temp 97.5 F L 09/04/16 07:45 Pulse 80 09/04/16 07:00 Resp 18 09/04/16 06:00 BP 170/94 09/04/16 06:00 Pulse Ox 97 09/04/16 06:00 General appearance: no acute distress, alert, lethargic Eyes: nonicteric ENT: oropharynx moist Neck: supple Effort: normal Auscultation: bilateral: wheezes, rhonchi Cardiovascular: regular rate and rhythm Gastrointestinal: normoactive bowel sounds, soft, non-tender, non-distended Integumentary: normal Extremities: no cyanosis, no edema, no clubbing, pink and warm, other ( capillary refill <2 sec) Musculoskeletal: no deformities normal mental status, non-focal exam, CN II-XII normal other (flat mood and affect) Results - Laboratory Findings CBC and BMP: 09/04/16 07:08 09/04/16 07:08 ABG ABG pH 7.41 pH Units (7.32-7.45) 09/03/16 18:35 ABG pCO2 39 mmHg (35-45) 09/03/16 18:35 ABG pO2 84 mmHg (85-104) L 09/03/16 18:35 ABG O2 Saturation 96 % (95-98) 09/03/16 18:35 PT/INR, D-dimer PT 13.3 Seconds (9.4-12.1) H 09/03/16 07:12 Abnormal lab findings: Abnormal lab results Hgb 10.1 g/dL (11.5-15.4) L 09/03/16 03:01 Hct 29.7 % (35.3-44.9) L 09/03/16 03:01 MCV 73.9 fL (83.0-100.0) L 09/03/16 03:01 MCH 25.1 pg (28.0-33.3) L 09/03/16 03:01 RDW 16.2 % (11.5-14.5) H 09/03/16 03:01 Neutrophils # 9.5 K/mcL (1.6-8.9) H 09/03/16 03:01 Lymphocytes # 0.5 K/mcL (0.6-4.6) L 09/03/16 03:01 Nucleated RBCs/100 WBC 0.2 /100 WBC (0) H 09/03/16 03:01 Hypersegmented Neuts Present (Not Present) A 09/03/16 03:01 Immature Plt Fraction 6.3 % (1.1-6.1) H 09/03/16 03:01 PT 13.3 Seconds (9.4-12.1) H 09/03/16 07:12 ABG pO2 84 mmHg (85-104) L 09/03/16 18:35 VBG pCO2 37 mmHg (41-51) L 09/03/16 03:01 VBG pO2 42 mmHg (25-40) H 09/03/16 03:01 Sodium 135 mEq/L (136-145) L 09/04/16 07:08 BUN 38 mg/dL (7-20) H 09/04/16 07:08 Creatinine 1.85 mg/dL (0.57-1.11) H 09/04/16 07:08 Est GFR ( Amer) 34 (> 60) L 09/04/16 07:08 Est GFR (Non-Af Amer) 28 (> 60) L 09/04/16 07:08 POC Glucose 108 (58-89) H 09/03/16 23:58 Hemoglobin A1c 6.3 % (-5.6) H 09/03/16 07:12 Calcium 8.3 mg/dL (8.6-10.8) L 09/04/16 07:08 Troponin I 0.24 ng/mL (0-0.03) H* 09/04/16 00:58 B-Natriuretic Peptide 4793 pg/mL (0-100) H 09/03/16 03:01 Cholesterol 260 mg/dL (< 200) H 09/03/16 07:12 LDL Cholesterol, Calc 187 mg/dL (0-99) H 09/03/16 07:12 Cholesterol/HDL Ratio 5.3 (0-4.9) H 09/03/16 07:12 Free T3 1.43 pg/mL (1.71-3.71) L 09/03/16 11:45 Protein/Creatinin Ratio 7.35 mg/mg (0-0.20) H 09/03/16 10:10 Urine Total Protein 375 mg/dL (1-14) H 09/03/16 10:10 - Microbiology Findings Microbiology Findings: Microbiology, Last 48 Hours 09/03/16 06:16 Blood Culture - Preliminary Peripheral Venipuncture No growth. - Clinical Findings Intake & Output: Intake & Output 09/03/16 09/04/16 09/04/16 23:59 07:59 15:59 Intake Total 200 / 200 200 / 200 Output Total 250 / 250 850 / 850 Balance -50 / -50 -650 / -650 Weight 107.093 kg Consult Discharge Plan - Plan Referrals: Tiffani Christensen DO [Primary Care Provider] - Massimo Freed FOOD SERVER [Advanced Practice Nurse] - 09/16/16 10:30 am <Blayne Damian - Last Filed: 09/04/16 17:09> Date of Encounter: 09/04/16 Objective PUL Vital signs: Last Vital Signs Temp 97.9 F 09/04/16 11:35 Pulse 74 09/04/16 15:00 Resp 20 09/04/16 15:00 BP 165/89 09/04/16 15:00 Pulse Ox 100 09/04/16 15:00 Results - Laboratory Findings CBC and BMP: 09/04/16 07:08 09/04/16 07:08 ABG ABG pH 7.41 pH Units (7.32-7.45) 09/03/16 18:35 ABG pCO2 39 mmHg (35-45) 09/03/16 18:35 ABG pO2 84 mmHg (85-104) L 09/03/16 18:35 ABG O2 Saturation 96 % (95-98) 09/03/16 18:35 PT/INR, D-dimer PT 13.1 Seconds (9.4-12.1) H 09/04/16 10:44 Abnormal lab findings: Abnormal lab results Hgb 9.6 g/dL (11.5-15.4) L 09/04/16 07:08 Hct 27.6 % (35.3-44.9) L 09/04/16 07:08 MCV 70.8 fL (83.0-100.0) L 09/04/16 07:08 MCH 24.6 pg (28.0-33.3) L 09/04/16 07:08 RDW 16.2 % (11.5-14.5) H 09/04/16 07:08 Nucleated RBCs/100 WBC 0.2 /100 WBC (0) H 09/03/16 03:01 Hypersegmented Neuts Present (Not Present) A 09/03/16 03:01 Immature Plt Fraction 8.1 % (1.1-6.1) H 09/04/16 07:08 PT 13.1 Seconds (9.4-12.1) H 09/04/16 10:44 ABG pO2 84 mmHg (85-104) L 09/03/16 18:35 VBG pCO2 37 mmHg (41-51) L 09/03/16 03:01 VBG pO2 42 mmHg (25-40) H 09/03/16 03:01 Sodium 135 mEq/L (136-145) L 09/04/16 07:08 BUN 38 mg/dL (7-20) H 09/04/16 07:08 Creatinine 1.85 mg/dL (0.57-1.11) H 09/04/16 07:08 Est GFR ( Amer) 34 (> 60) L 09/04/16 07:08 Est GFR (Non-Af Amer) 28 (> 60) L 09/04/16 07:08 POC Glucose 109 (58-89) H 09/04/16 11:20 Hemoglobin A1c 6.3 % (-5.6) H 09/03/16 07:12 Calcium 8.3 mg/dL (8.6-10.8) L 09/04/16 07:08 Ionized Calcium 1.09 mmol/L (1.15-1.35) L 09/04/16 10:44 Magnesium 1.2 mg/dL (1.6-2.6) L 09/04/16 10:44 Iron 14 mcg/dL (50-170) L 09/04/16 10:44 % Saturation 7 % (15-50) L 09/04/16 10:44 Transferrin 134 mg/dL (180-382) L 09/04/16 10:44 Troponin I 0.24 ng/mL (0-0.03) H* 09/04/16 00:58 B-Natriuretic Peptide 4793 pg/mL (0-100) H 09/03/16 03:01 Cholesterol 260 mg/dL (< 200) H 09/03/16 07:12 LDL Cholesterol, Calc 187 mg/dL (0-99) H 09/03/16 07:12 Cholesterol/HDL Ratio 5.3 (0-4.9) H 09/03/16 07:12 25-OH Vitamin D Total 15 ng/mL (30-80) L 09/04/16 10:44 Folate 5.8 ng/mL (7.0-31.4) L 09/04/16 10:44 Free T3 1.43 pg/mL (1.71-3.71) L 09/03/16 11:45 PTH Intact 248.5 pg/ml (8.5-72.5) H 09/04/16 10:44 Urine Protein 100 mg/dL (Neg-Trace) H 09/04/16 12:50 Urine Blood Trace (Negative) H 09/04/16 12:50 Urine Microscopic RBC 5-15 per hpf (0-3) H 09/04/16 12:50 Ur Squamous Epith Cells Many per lpf (None-Few) H 09/04/16 12:50 Protein/Creatinin Ratio 5.80 mg/mg (0-0.20) H 09/04/16 12:50 Urine Total Protein 116 mg/dL (1-14) H 09/04/16 12:50 - Microbiology Findings Microbiology Findings: Microbiology, Last 48 Hours 09/03/16 06:16 Blood Culture - Preliminary Peripheral Venipuncture No growth. - Clinical Findings Intake & Output: Intake & Output 09/04/16 09/04/16 09/04/16 07:59 15:59 23:59 Intake Total 200 / 200 750 / 750 Output Total 850 / 850 550 / 550 Balance -650 / -650 200 / 200 Weight 107.093 kg - Attending Attestation I examined this patient and my medical decision-making was reviewed with the GENETIC PHYSICIAN/PA/Advanced Practice Nurse/Resident Physician. I agree with the documented findings, disposition and treatment plan as described except to the extent set forth below. Patient seen and examined. Labs, radiology, chart personally reviewed. Agree with resident's history and physical, assessment, plan with following comments: ESCROW REPRESENTATIVE: Patient follows commands, Pulmonary: Acceptable oxygenation and ventilation, however I suspect patient has COPD exacerbation and for that reason we will treat with systemic steroid and bronchodilators with empiric antibiotics. We will use noninvasive ventilation and if she does not tolerate's and noninvasive ventilation then she will need to be intubated and patient understand that. Cardiovascular: Patient remains hypertensive with nicardipine drip and will attempt to wean off after giving her oral antihypertensive medication. Cardiology and nephrology following. 2. GI: Nutrition per dietary and GI prophylaxis per routine Heme: DVT prophylaxis per routine ID: Continue antibiotics and plan to de-escalation Renal; urine out put and renal funtion reviewed. 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 Endorcine: blood glucose is monitored Lines: all lines checked and no evidence of infections Skin: skin care to prevent pressure ulcers per nursing routine care I spent 32 min of Critical Care time with this patient. It involved decision making of high complexity to assess, manipulate, and support vital organ system failure and/or to prevent further life threatening deterioration of the patient' s condition. The time involved in the performance of separately reportable procedures was not counted toward critical care time.
[2016-09-04] MEDS: Pantoprazole 40 MG VIAL IVP SCH (08:51)
[2016-09-04] MEDS: Furosemide 40 MG/4 ML VIAL IVP SCH ×2 (08:51→20:01)
[2016-09-04] MEDS: Gabapentin 300 MG CAPSULE PO SCH ×3 (08:52→19:54)
[2016-09-04] MEDS: *HR* Ticagrelor 90 MG TABLET PO SCH ×2 (08:52→19:53)
[2016-09-04] MEDS: Aspirin Enteric Coated 81 MG Tablet PO SCH (08:52)
[2016-09-04] MEDS: cloNIDine HCl 0.1 MG TABLET PO SCH ×3 (08:52→19:53)
[2016-09-04] MEDS: hydrALAZINE 25 MG TABLET PO SCH ×2 (08:52→19:54)
[2016-09-04 08:56] LABS: Basophils # 0.1 K/mcL (0.0-0.2); Basophils % 0.7 %; Eosinophils % 0.2 %; Hematocrit 27.6 % (35.3-44.9); Hemoglobin 9.6 g/dL (11.5-15.4); Immature Granulocytes % 0.5 % (0-4); Immature Platelets 8.1 % (1.1-6.1); Lymphocytes % 12.1 %; Mean Corpuscular HGB Conc 34.8 g/dL (31.6-35.5); Mean Corpuscular Hemoglobin 24.6 pg (28.0-33.3); Mean Corpuscular Volume 70.8 fL (83.0-100.0); Monocytes % 11.5 %; Neutrophils # 6.2 K/mcL (1.6-8.9); Platelet Count 204 K/mcL (140-400); Red Cell Distribution Width 16.2 % (11.5-14.5)
[2016-09-04] MEDS ORDERED: Isosorbide MONOnitrate (24 HR) 30 MG TAB.ER.24H PO SCH (09:00)
[2016-09-04] MEDS: *HR* Morphine 2 MG/ML SYRINGE IVP PRN (09:04)
[2016-09-04] MEDS: Azithromycin 250 MG TABLET PO SCH (09:04)
[2016-09-04] MEDS: Ipratropium/Albuterol Neb 3 ML IH SCH ×3 (09:55→21:53)
[2016-09-04] MEDS: Budesonide/Formoterol 160/4.5 MDI IH SCH ×2 (09:55→21:54)
--- NOTE | 2016-09-04 10:03 | Nephrology Progress Note ---
Date of Encounter: 09/04/16 Time of Encounter: 10:00 - Assessment and Plan (1) Acute worsening of stage 3 chronic kidney disease Current Visit: Yes Status: Acute Patient with KEEGAN on CKD3. Etiology of CKD3 unclear at this time, but likely related to diabetes and/or hypertension. Her most recent rise in creatinine is concerning for intrinsic renal disease as she has significant proteinuria ( estimated 7 gram via random protein to creatinine ratio) and recently uncontrolled and severe hypertension. Will order work-up for possible etiologies of intrinsic renal disease. Await results of renal ultrasound. Patient could benefit from renal biopsy. In talking with IR nurse the patient will need to be off anticoagulants/antiplatelets for 5 days. This is complicated by the recent placement of a cardiac stent. Will need cardiology input as to the safety of discontinuing medications (Brilinta) for a needed biopsy. Will order work-up for CKD3. Continue to avoid nephrotoxins. Adjust medications for renal function. Plan discussed with the team. (2) Hypertensive emergency Current Visit: Yes Status: Acute Patient with uncontrolled hypertension. Improved control with nicardipine. Agree with weaning off iv drip and adjusting blood pressure medications. Goal blood pressure is 130/80, but this needs to be acheived slowly to avoid overcorrection of her hypertension. Will check serum metanephrine. Recent uncontrolled hypertension likely reflects intrinsic renal pathology. (3) Insulin dependent diabetes mellitus Current Visit: Yes Status: Chronic Defer management to primary team. (4) Anemia Current Visit: No Status: Chronic Monitor for active bleeding. Will check iron stores, vitamin b12 and folate. Qualifiers: Anemia type: unspecified type Qualified Code(s): D64.9 - Anemia, unspecified (5) Peripheral neuropathy Current Visit: No Status: Chronic Qualifiers: Peripheral neuropathy type: polyneuropathy associated with underlying disease Qualified Code(s): G63 - Polyneuropathy in diseases classified elsewhere (6) Acute respiratory failure Current Visit: Yes Status: Acute Wean supplemental oxygen to room air. Keep O2 saturation >92%. Qualifiers: Respiratory failure complication: hypoxia Qualified Code(s): J96.01 - Acute respiratory failure with hypoxia Subjective Principal diagnosis: KEEGAN/CKD Interval history: Ms. [place] feels slightly better this morning. She still complains of significant generalized fatigue and some dyspnea but reports that both of these are improving. She denies a family history of kidney disease, she also denies rashes or arthralgias.She does have lower extremity swelling. She denies current chest pain. Her ROS otherwise appears to be stable. Objective - Vital Signs Vital signs: Vital Signs Temp Pulse Resp BP Pulse Ox 09/04/16 09:00 82 24 168/97 97 09/04/16 08:00 82 18 166/92 94 L 09/04/16 07:45 97.5 F L 09/04/16 07:00 80 26 165/95 97 09/04/16 06:00 74 18 170/94 97 09/04/16 05:00 72 18 156/85 09/04/16 04:20 98.6 F 09/04/16 04:00 71 18 155/85 98 09/04/16 03:00 72 19 155/85 99 09/04/16 02:00 71 21 156/91 100 09/04/16 01:00 71 18 149/85 98 09/04/16 00:19 98.1 F 09/04/16 00:00 72 18 114/94 98 09/03/16 23:00 69 18 143/82 99 09/03/16 22:00 73 19 151/100 99 09/03/16 21:07 73 19 164/89 99 09/03/16 20:41 98.6 F 09/03/16 20:00 75 20 147/93 99 09/03/16 19:00 74 28 142/93 99 09/03/16 18:00 75 26 156/85 95 09/03/16 17:00 79 26 161/88 94 L 09/03/16 16:00 79 28 147/96 93 L 09/03/16 15:55 98.2 F 09/03/16 15:00 86 27 148/97 93 L 09/03/16 14:00 81 28 158/88 93 L 09/03/16 13:00 82 27 160/95 91 L 09/03/16 12:00 98.3 F 77 28 159/87 93 L 09/03/16 11:00 74 29 154/92 92 L Intake and Output 09/03/16 09/04/16 09/04/16 23:59 07:59 15:59 Intake Total 200 / 200 200 / 200 510 / 510 Output Total 250 / 250 850 / 850 Balance -50 / -50 -650 / -650 510 / 510 Intake: IV Fluids 200 / 200 200 / 200 150 / 150 Cardene Premix 20mg/200ml 200 / 200 200 / 200 150 / 150 20 mg In 200 ml @ 5 MG/ HR 50 mls/hr IVC .Q4H COUNT INCLUDES THE [facility] Rx#:[id number] Oral 360 / 360 Output: Catheter 250 / 250 850 / 850 Other: Meal Breakfast Percent of Meal Consumed 100% Weight 107.093 kg Blood Glucose* 110 108 Patient Weight 09/04/16 23:59 Weight 107.093 kg - General Appearance General appearance: Present: well-developed, well-nourished Exam: on nasal cannula EENT: Present: ATNC Neck: Present: supple Respiratory: Present: wheezing (scattered wheezing. ), course breath sounds Cardiology: Present: edema (1+ bilateral edema), regular rate, regular rhythm Gastrointestinal: Present: normoactive bowel sounds, no tenderness, no guarding Integumentary: Present: warm and dry Neurologic: Present: alert and oriented x3 Musculoskeletal: Present: no erythema, no cyanosis Psychiatric: Present: mood/affect appropriate - Lab 09/04/16 07:08 09/04/16 07:08 Most recent lab results ABG pH 7.41 pH Units (7.32-7.45) 09/03/16 18:35 ABG pCO2 39 mmHg (35-45) 09/03/16 18:35 ABG pO2 84 mmHg (85-104) L 09/03/16 18:35 ABG HCO3 24.7 mEQ/L (21-27) 09/03/16 18:35 ABG O2 Saturation 96 % (95-98) 09/03/16 18:35 Calcium 8.3 mg/dL (8.6-10.8) L 09/04/16 07:08 Urine Creatinine 51 mg/dL 09/03/16 10:10 Urine Sodium 62.0 mEq/L 09/03/16 10:10 Urine Total Protein 375 mg/dL (1-14) H 09/03/16 10:10 - Imaging Kidney/bladder ultrasound: pending Consult Discharge Plan - Plan Referrals: Tiffani Christensen DO [Primary Care Provider] - Massimo Freed CNP [Advanced Practice Nurse] - 09/16/16 10:30 am
[2016-09-04 11:11] LABS: INR 1.2; Prothrombin Time 13.1 Seconds (9.4-12.1)
[2016-09-04 11:14] LABS: Activated Partial Thrombo Time 32.1 Seconds (26.0-36.0); Ionized Calcium 1.09 mmol/L (1.15-1.35)
[2016-09-04 11:20] LABS: Magnesium 1.2 mg/dL (1.6-2.6); Phosphorous 4.5 mg/dL (2.3-4.7)
--- NOTE | 2016-09-04 11:21 | Cardiology Progress Note ---
Date of Encounter: 09/04/16 Time of Encounter: 10:30 Assessment and Plan (1) Elevated troponin Current Visit: Yes Status: Acute Peak troponin 0.38 with downward trend in the setting of KEEGAN and severely elevated BP; likely demand ischemia. No acute ischemic ECG changes noted. She denies chest pain or anginal equivalent. Hx of ANGELIKA to Ramus and RCA at [facility] in 07/15/2016--needs uninterrupted DAPT (asa + brilinta) for at least 1 year s/p PCI. TTE 07/07/16: EF 55-60%, moderate concentric LVH Continue asa, statin, and betablocker. Continue to trend troponin to ensure downward trend. TTE shows preserved LV function with normal wall motion. Follow-up scheduled. Discussed patient with Dr. Tavares and Dr. [place]--kidney biopsy ordered. Do not recommend holding Asa or brilinta as patient had ANGELIKA placed 07/15/[address] [facility] as patient would be at high risk for stent thrombosis. She needs at least 1 year of uninterrupted DAPT therapy. (2) Hypertensive urgency Current Visit: Yes Status: Acute SBP 219/137 at home prior to admission. BP >190s since admission while on Cardene gtt. Nephrology consulted for further recommendations regarding malignant/poorly controlled HTN. Home medications include: Lisinopril 20 mg daily, catapress patch 0.3 daily, hydralazine 50 mg BID, lasix 40 mg daily, imdur 30 mg daily, toprol 50 mg daily. Consider changing toprol to coreg for improved BP control; consider re-starting norvasc (d/c'ed in past due to "swelling"). Follow-up with [facility] as scheduled with ANJU Stephens. (3) Hypoxia Current Visit: Yes Status: Acute Required BiPap upon presentation, SPO2 86%. (4) Acute kidney injury Current Visit: Yes Status: Acute Mild KEEGAN, SCr 1.63 upon presentation, worsened this AM--1.8 Baseline appears to be 1.2-1.3 Nephrology consulted. Discussion w patient/family: The assessment and plan as outlined above was discussed with the patient and/or family members who expressed understanding and agreement. All questions were answered. Thank you for involving us in the care of your patient. Please call with any questions. The patient was discussed and reviewed with Dr. James; Cardiology will sign-off , follow-up in the outpatient setting. Subjective Principal diagnosis: KEEGAN/CKD Interval history: Seen and examined. Lethargic upon exam. Continues to be hypertensive despite medication changes and on IV cardene gtt. Continues to feel weak today. Alert and oriented x3 upon exam. Discussed patient with Dr. Tavares and Dr. [place]. Objective Vital Signs, Last 4 Hours Temp Pulse Resp BP Pulse Ox 09/04/16 10:00 82 20 176/119 100 09/04/16 09:00 82 24 168/97 97 09/04/16 08:00 82 18 166/92 94 L 09/04/16 07:45 97.5 F L General: Conversant, Other (ill appearing ) HEENT: Atraumatic, Normocephaly Cardiac: Reg Rate and Rhythm, Normal S1 and S2 Lungs: Other (Coarse breath sounds) Neuro: Alert and responsive (lethargic) Abdomen: Soft Extremities: Other (pre-tibial BLE edema) Results 09/04/16 07:08 09/04/16 07:08 Lab Results 09/03/16 09/03/16 09/04/16 11:45 11:45 00:58 WBC Hgb Hct Plt Count INR APTT Sodium Potassium Chloride Carbon Dioxide BUN Creatinine Glucose Calcium Troponin I 0.38 H* 0.24 H* TSH 0.781 09/04/16 09/04/16 09/04/16 07:08 07:08 10:44 WBC 8.3 Hgb 9.6 L Hct 27.6 L Plt Count 204 INR 1.2 APTT 32.1 Sodium 135 L Potassium 4.0 Chloride 105 Carbon Dioxide 20 BUN 38 H Creatinine 1.85 H Glucose 77 Calcium 8.3 L Troponin I TSH Active Medications Acetaminophen (Tylenol) 650 mg PO Q6HR PRN PRN Reason: Mild Pain (1-3) Stop: 03/05/17 06:12 Albuterol/Ipratropium (Duoneb) 3 ml IH [id number] [facility] PRN Reason: Protocol Stop: 03/06/17 10:01 Last Admin: 09/04/16 09:55 Dose: 3 ml Aspirin (Aspirin Ec) 81 mg PO DAILY [facility] Stop: 03/05/17 09:01 Last Admin: 09/04/16 08:52 Dose: 81 mg Azithromycin (Zithromax) 500 mg PO DAILY [facility] Stop: 09/08/16 09:01 Last Admin: 09/04/16 09:04 Dose: 500 mg Budesonide/Formoterol Fumarate (Symbicort) 2 puff IH BIDR [facility] PRN Reason: Protocol Stop: 03/06/17 10:01 Last Admin: 09/04/16 09:55 Dose: 2 puff Carvedilol (Coreg) 12.5 mg PO BIDWM [facility] PRN Reason: Protocol Stop: 03/05/17 17:01 Last Admin: 09/04/16 08:52 Dose: 12.5 mg Clonidine HCl (Clonidine Hcl) 0.2 mg PO TID [facility] Stop: 03/05/17 09:01 Last Admin: 09/04/16 08:52 Dose: 0.2 mg Dextrose/Water (Dextrose 50% (Syg)) 25 ml IVP AD PRN PRN Reason: Hypoglycemia Stop: 03/05/17 06:12 Duloxetine HCl (Cymbalta) 60 mg PO DAILY [facility] Stop: 03/05/17 09:01 Last Admin: 09/04/16 08:52 Dose: 60 mg Enoxaparin Sodium (Lovenox) 40 mg SQ 0600 [facility] PRN Reason: Protocol Stop: 03/05/17 06:01 Last Admin: 09/04/16 06:07 Dose: 40 mg Furosemide (Lasix) 60 mg IVP BID [facility] Stop: 03/05/17 09:01 Last Admin: 09/04/16 08:51 Dose: 60 mg Gabapentin (Neurontin) 300 mg PO TID [facility] Stop: 03/05/17 09:01 Last Admin: 09/04/16 08:52 Dose: 300 mg Glucagon (Glucagen) 1 mg IM ONCE PRN PRN Reason: Hypoglycemia Stop: 03/05/17 06:12 Glucose (Gluctose) 15 gm PO ONCE PRN PRN Reason: Hypoglycemia Stop: 03/05/17 06:12 Glucose (Gluctose) 30 gm PO ONCE PRN PRN Reason: Hypoglycemia Stop: 03/05/17 06:12 Hydralazine HCl (Hydralazine) 25 mg PO BID [facility] Stop: 03/05/17 21:01 Last Admin: 09/04/16 08:52 Dose: 25 mg Dextrose (Dextrose 5%) 1,000 mls @ 100 mls/hr IV CONT PRN PRN Reason: HYPOGLYCEMIA Stop: 03/05/17 06:12 Insulin Human Lispro (Humalog) 0 units SQ Q6HR [facility] PRN Reason: Protocol Stop: 03/05/17 12:01 Last Admin: 09/04/16 08:53 Dose: Not Given Isosorbide Mononitrate (Imdur) 30 mg PO DAILY [facility] Stop: 03/06/17 09:01 Last Admin: 09/04/16 08:52 Dose: 30 mg Labetalol HCl (Labetalol) 10 mg IVP Q2H PRN PRN Reason: Hypertension Stop: 03/06/17 08:44 Methylprednisolone (Solu-Medrol) 40 mg IVP Q12HR [facility] Stop: 09/06/16 18:01 Metoclopramide HCl (Reglan) 10 mg PO Q6HR [facility] Stop: 03/05/17 18:01 Last Admin: 09/04/16 06:07 Dose: 10 mg Morphine Sulfate (Morphine Sulfate) 1 mg IVP Q4HR PRN PRN Reason: Severe Pain (7-10) Stop: 03/05/17 06:12 Last Admin: 09/04/16 09:04 Dose: 1 mg Naloxone HCl (Narcan) 0.4 mg IVP Q2MIN PRN PRN Reason: Opioid Reversal Stop: 03/05/17 06:12 Omeprazole (Prilosec) 40 mg PO DAILY@0630 [facility] PRN Reason: Protocol Stop: 03/07/17 06:31 Ondansetron HCl (Zofran) 4 mg IVP Q8HR PRN PRN Reason: Nausea And Vomiting Stop: 03/05/17 06:12 Ticagrelor (Brilinta) 90 mg PO BID [facility] Stop: 03/05/17 09:01 Last Admin: 09/04/16 08:52 Dose: 90 mg - Imaging and Cardiology Echo: report reviewed - EKG Interpretation EKG results cardiology: personally reviewed Consult Discharge Plan - Plan Referrals: Tiffani Christensen DO [Primary Care Provider] - Massimo Freed [employer] [Advanced Practice Nurse] - 09/16/16 10:30 am
[2016-09-04 12:05] LABS: Rheumatoid Factor < 15 IU/mL (0-29)
[2016-09-04 12:36] LABS: Folate 5.8 ng/mL (7.0-31.4); Vitamin B12 491 pg/mL (213-816)
[2016-09-04 13:06] LABS: Bilirubin,Urine Negative (Negative); Blood,Urine Trace (Negative); Clarity,Urine Clear (Clear); Color,Urine Yellow (Yellow); Glucose,Urine (UA) Normal (Normal); Ketones,Urine Negative (Negative); Leukocyte Esterase,Urine Negative (Negative); Nitrite,Urine Negative (Negative); Protein,Urine 100 mg/dL (Neg-Trace); Urobilinogen,Urine Normal (Normal)
[2016-09-04 13:08] LABS: Bacteria,Urine None Seen per hpf (None-Few); Hyaline Casts,Urine None Seen per lpf (None-Few); Squamous Epithelial Cell,Urine Many per lpf (None-Few); WBC,Urine 0-3 per hpf (0-3)
[2016-09-04 13:15] LABS: Protein/Creatinine Ratio,Urine 5.8 mg/mg (0-0.20)
[2016-09-04] MEDS ORDERED: Sennosides/Docusate Sodium TABLET PO PRN (13:51)
[2016-09-04] MEDS: MethylPREDNISolone 40 MG/ML VIAL IVP SCH (17:15)
[2016-09-04] MEDS ORDERED: Insulin LISPRO 300 UNITS/3 ML VIAL SQ SCH (21:00)
[2016-09-05] MEDS: *HR* Labetalol 20 MG/4 ML SYRINGE IVP PRN ×2 (02:14→04:26)
[2016-09-05 05:12] LABS: Calcium 8.1 mg/dL (8.6-10.8); Potassium 4.6 mEq/L (3.5-4.5)
[2016-09-05] MEDS: Ipratropium/Albuterol Neb 3 ML IH SCH ×4 (05:18→22:35)
[2016-09-05] MEDS: MethylPREDNISolone 40 MG/ML VIAL IVP SCH ×2 (05:38→18:28)
[2016-09-05] MEDS: *HR* Enoxaparin 40 MG/0.4 ML SYRINGE SQ SCH (05:38)
[2016-09-05] MEDS: *HR* Morphine 2 MG/ML SYRINGE IVP PRN ×2 (05:50→18:28)
[2016-09-05] MEDS: *HR* Ticagrelor 90 MG TABLET PO SCH ×2 (08:30→21:08)
[2016-09-05] MEDS: Azithromycin 250 MG TABLET PO SCH (08:30)
[2016-09-05] MEDS: Aspirin Enteric Coated 81 MG Tablet PO SCH (08:30)
[2016-09-05] MEDS: Gabapentin 300 MG CAPSULE PO SCH ×3 (08:30→21:02)
[2016-09-05] MEDS: Furosemide 40 MG/4 ML VIAL IVP SCH ×2 (08:31→20:59)
[2016-09-05] MEDS: Insulin LISPRO 300 UNITS/3 ML VIAL SQ SCH ×3 (08:33→21:05)
[2016-09-05] MEDS ORDERED: amLODIPine 5 MG TABLET PO SCH (09:00)
[2016-09-05] MEDS ORDERED: hydrALAZINE 25 MG TABLET PO SCH (09:00)
[2016-09-05] MEDS ORDERED: cloNIDine HCl 0.1 MG TABLET PO SCH (09:30)
[2016-09-05] MEDS: Budesonide/Formoterol 160/4.5 MDI IH SCH ×2 (11:03→22:35)
--- NOTE | 2016-09-05 11:34 | Nephrology Progress Note ---
Date of Encounter: 09/05/16 Time of Encounter: 11:32 - Assessment and Plan (1) Acute worsening of stage 3 chronic kidney disease Current Visit: Yes Status: Acute Patient with KEEGAN on CKD3. Etiology of CKD3 unclear at this time, but possibly related to diabetes and/or hypertension. Her most recent rise in creatinine is concerning for intrinsic renal disease as she has significant proteinuria ( estimated 7 gram via random protein to creatinine ratio) and recently uncontrolled and severe hypertension. Will order work-up for possible etiologies of intrinsic renal disease. Await results of renal ultrasound. Patient could benefit from renal biopsy. In talking with IR nurse the patient will need to be off anticoagulants/antiplatelets for 5 days. Cardiology indicates that the patient will not be able to discontinue anticoagulant/ antiplatelet until 07/04. Will monitor for worsening renal function. Patient is aware of how this will complicate her care. Will order work-up for CKD3. Continue to avoid nephrotoxins. Adjust medications for renal function. Plan discussed with the team. (2) Hypertensive emergency Current Visit: Yes Status: Acute Patient with uncontrolled hypertension. Improved control with nicardipine. Agree with weaning off iv drip and adjusting blood pressure medications. Goal blood pressure is 130/80, but this needs to be acheived slowly (over days) to avoid overcorrection of her hypertension. Will check serum metanephrine. Recent uncontrolled hypertension likely reflects intrinsic renal pathology. Recommend resuming clonidine to avoid rebound hypertension. (3) Insulin dependent diabetes mellitus Current Visit: Yes Status: Chronic Defer management to primary team. (4) Anemia Current Visit: No Status: Chronic Monitor for active bleeding. Will check iron stores, vitamin b12 and folate. Qualifiers: Anemia type: unspecified type Qualified Code(s): D64.9 - Anemia, unspecified (5) Peripheral neuropathy Current Visit: No Status: Chronic Qualifiers: Peripheral neuropathy type: polyneuropathy associated with underlying disease Qualified Code(s): G63 - Polyneuropathy in diseases classified elsewhere (6) Acute respiratory failure Current Visit: Yes Status: Acute Wean supplemental oxygen to room air. Keep O2 saturation >92%. Qualifiers: Respiratory failure complication: hypoxia Qualified Code(s): J96.01 - Acute respiratory failure with hypoxia (7) Vitamin D deficiency Current Visit: Yes Status: Acute will order replacement. Subjective Principal diagnosis: Dyspnea, HTN emergency Interval history: Ms. [place] feels slightly better this morning. She still complains of significant generalized fatigue and some dyspnea but reports that both of these continue to improve. She reports discomfort in her toes which occur when her blood pressure is elevated. Her ROS otherwise appears to be stable. Objective - Vital Signs Vital signs: Vital Signs Temp Pulse Resp BP Pulse Ox 09/05/16 11:00 74 09/05/16 10:00 74 18 161/72 95 09/05/16 08:04 98.1 F 09/05/16 08:00 76 18 177/87 96 09/05/16 07:46 70 09/05/16 07:00 70 20 167/80 96 09/05/16 06:00 71 16 174/82 96 09/05/16 05:39 98.9 F 09/05/16 05:00 67 15 186/88 97 09/05/16 04:30 67 16 184/90 96 09/05/16 03:00 65 18 174/88 99 09/05/16 02:00 64 14 177/89 99 09/05/16 01:00 70 16 173/88 99 09/05/16 00:10 99.2 F 09/05/16 00:00 64 18 163/87 97 09/04/16 23:00 62 16 165/86 99 09/04/16 22:00 64 18 169/90 99 09/04/16 21:54 18 99 09/04/16 21:00 64 16 160/84 99 09/04/16 20:11 99.2 F 09/04/16 20:00 69 20 142/77 99 09/04/16 19:00 65 18 152/83 99 09/04/16 18:00 69 20 164/88 99 09/04/16 17:06 100.1 F H 09/04/16 17:00 79 20 182/93 96 09/04/16 15:00 74 20 165/89 100 09/04/16 14:00 77 20 170/86 100 09/04/16 13:00 82 20 175/91 100 09/04/16 12:00 82 20 173/98 100 09/04/16 11:35 97.9 F Intake and Output 09/04/16 09/05/16 09/05/16 23:59 07:59 15:59 Output Total 950 / 950 625 / 625 600 / 600 Balance -950 / -950 -625 / -625 -600 / -600 Output: Urine 175 / 175 Urethral (Goins) 175 / 175 Catheter 775 / 775 625 / 625 600 / 600 Other: Blood Glucose* 135 192 - General Appearance General appearance: Present: well-developed, well-nourished EENT: Present: ATNC Neck: Present: supple Respiratory: Present: clear Cardiology: Present: no edema, regular rate, regular rhythm Gastrointestinal: Present: normoactive bowel sounds, no tenderness Integumentary: Present: warm and dry Neurologic: Present: alert and oriented x3 Musculoskeletal: Present: no cyanosis Psychiatric: Present: mood/affect appropriate - Lab 09/04/16 07:08 09/05/16 03:32 Most recent lab results ABG pH 7.41 pH Units (7.32-7.45) 09/03/16 18:35 ABG pCO2 39 mmHg (35-45) 09/03/16 18:35 ABG pO2 84 mmHg (85-104) L 09/03/16 18:35 ABG HCO3 24.7 mEQ/L (21-27) 09/03/16 18:35 ABG O2 Saturation 96 % (95-98) 09/03/16 18:35 Calcium 8.1 mg/dL (8.6-10.8) L 09/05/16 03:32 Phosphorus 4.5 mg/dL (2.3-4.7) 09/04/16 10:44 Magnesium 1.2 mg/dL (1.6-2.6) L 09/04/16 10:44 Urine Creatinine 20 mg/dL 09/04/16 12:50 Urine Sodium 62.0 mEq/L 09/03/16 10:10 Urine Total Protein 116 mg/dL (1-14) H 09/04/16 12:50 Consult Discharge Plan - Plan Referrals: Tiffani Christensen DO [Primary Care Provider] - Massimo Freed CNP [Advanced Practice Nurse] - 09/16/16 10:30 am
--- NOTE | 2016-09-05 11:37 | Pulmonology Progress Note ---
<Jay Gomez - Last Filed: 09/05/16 12:53> Date of Encounter: 09/05/16 Time of Encounter: 09:00 Assessment and Plan (1) Hypertensive emergency Current Visit: Yes Status: Acute Patient originally presented with SBP > 200. She was started on Cardene drip that has since been discontinued when more stable blood pressures had been achieved. She presented with elevated troponins, pulmonary edema, and KEEGAN on CKD; evidence of end organ damage. She normally is on a clonidine patch at home as well as several other blood pressure medications, there are questions about patient compliance (due to financial matters). Patient currently on amlodipine 5 mg twice a day Carvedilol when he 5 mg twice a day Clonidine 0.1 by mouth 3 times a day Hydralazine 50 mg by mouth 3 times a day and 10 mg IVPB every 4 hours when necessary Nephrology has been consulted and is following patient, appreciate recommendations on continued management/care Continue to monitor regular vitals, telemetry, daily labs (2) Acute diastolic (congestive) heart failure Current Visit: Yes Status: Acute Possible acute CHF with preserved ejection fraction for COPD exacerbation. Chest x-ray was suggestive of cardiomegaly and recent cardiac testing/ procedures include a DEBBY performed amount June which showed an EF of 55-60%, left heart catheter at the end of June with placement of 2 drug- eluting stents. We will continue to monitor patient's fluid status and diuresis with IV Lasix Patient appears to be improving overall (3) Acute respiratory failure Current Visit: Yes Status: Acute Patient respiratory failure likely due to acute CHF versus acute exacerbation of COPD. Currently satting in the mid 90s on 12 L high flow nasal cannula. Not on oxygen at home usually. We will continue diuresis as above DuoNeb's every 6 when necessary Continue azithromycin Continue breathing treatments, Lasix, Symbicort Continue supplemental oxygen as needed, wean as tolerated Continue to monitor with continuous pulse oximetry Qualifiers: Respiratory failure complication: hypoxia Qualified Code(s): J96.01 - Acute respiratory failure with hypoxia (4) Acute worsening of stage 3 chronic kidney disease Current Visit: Yes Status: Acute Serum kidney function as measured by creatinine and GFR has shown steady worsening for several months as well as patient loss of protein in her urine. Her acute worsening is likely due to her extreme hypertension, though underlying kidney disease likely due to patient diabetes. Nephrology has been consulted previously and she is being followed by Dr. France currently. Dr. France recommends a renal biopsy because of concern of a potential glomerular nephritis, but nor for the biopsy to take place the patient needs to be off Brilinta for 5 days prior to procedure. She just had to [place] placed in June , cardiology recommends staying on the plantar for a full year without interruption. We will continue patient Brilinta Avoid nephrotoxic agents Renal artery ultrasound results pending Nephrology following, appreciate recommendations for continued management/care (5) COPD exacerbation Current Visit: Yes Status: Acute Possible acute exacerbation of COPD, currently requiring 12 L high flow nasal cannula to maintain oxygen percent at 95 % Plan as above (6) Elevated troponin Current Visit: Yes Status: Resolved Troponins admission were 0.27, peaked at 0.38, and have come down to 0.24. Her troponin elevation is likely due to demand given patient uncontrolled hypertension at admission and respiratory issues. Cardiology previously consulted, echo performed showed EF 50-55%. Cardiology has signed off. (7) Anemia Current Visit: No Status: Chronic Currently hemoglobin stable, 9.6 at last check. Currently on parole until following ANGELIKA placement June 2016. 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 (10) Hyperlipidemia Current Visit: No Status: Chronic Qualifiers: Hyperlipidemia type: unspecified Qualified Code(s): E78.5 - Hyperlipidemia , unspecified (11) DVT prophylaxis Current Visit: No Status: Acute GI prophylaxis: Omeprazole DVT prophylaxis: Lovenox Neuro/sedation: No concerns at this time Pulmonary: Concern for acute exasperation CHF versus acute exacerbation of COPD , receiving Lasix, azithromycin, DuoNeb's, Symbicort, methylprednisolone, supplemental oxygen as needed Cardio: Hypertensive emergency, her blood pressures relatively controlled with amlodipine, carvedilol, clonidine, hydralazine. Hydralazine when necessary ordered. We will continue to monitor via telemetry GI: No concerns at this time Heme: Stable anemia, knocks apparent for DVT prophylaxis ID: We will continue azithromycin as treatment for acute exacerbation Renal: KEEGAN on CKD, nephrology following, no biopsy at this time due to Brilinta. If patient did have glomerular nephritis she would receive steroids, currently receiving for acute exacerbation COPD Endocrine: Glucose monitor and will controlled with low-dose sliding scale Skin: ICU skin care per routine Disposition: Patient states/stable for transfer to telemetry bed CODE STATUS: Full code Subjective Principal diagnosis: Dyspnea, HTN emergency Interval history: Patient is doing well today, seen sitting in chair comfortably. She reports being slightly fatigued, but states there is been some improvement in her breathing, denies chest pain, denies fever, denies headache, denies nausea/ vomiting. Cardene drip discontinued yesterday, the patient blood pressure remains elevated, but not dangerously so. Objective PUL Vital signs: Last Vital Signs Temp 98.1 F 09/05/16 08:04 Pulse 74 09/05/16 11:00 Resp 18 09/05/16 10:00 BP 161/72 09/05/16 10:00 Pulse Ox 95 09/05/16 10:00 Constitutional: No acute distress, alert, comfortable appearing EENT: Sclera nonicteric, noninjected, oropharynx moist, neck supple Respiratory: Respirations nonlabored, slight bilateral rhonchi appreciated Cardiovascular: Regular rate and rhythm, no murmurs/rubs/gallops appreciated Gastrointestinal: Normoactive bowel sounds, soft, nontender, nondistended, no guarding or rebound Integumentary: No erythema, no rashes, no pallor appreciated Extremities: No cyanosis, no edema, no clubbing, pink and warm, pulses present and equal bilaterally Musculoskeletal: No deformities Neurologic: Normal mental status, nonfocal exam, pupils equal round reactive to light bilaterally Psychiatric normal mood, normal affect Results - Laboratory Findings CBC and BMP: 09/04/16 07:08 09/05/16 03:32 ABG ABG pH 7.41 pH Units (7.32-7.45) 09/03/16 18:35 ABG pCO2 39 mmHg (35-45) 09/03/16 18:35 ABG pO2 84 mmHg (85-104) L 09/03/16 18:35 ABG O2 Saturation 96 % (95-98) 09/03/16 18:35 PT/INR, D-dimer PT 13.1 Seconds (9.4-12.1) H 09/04/16 10:44 Abnormal lab findings: Abnormal lab results Hgb 9.6 g/dL (11.5-15.4) L 09/04/16 07:08 Hct 27.6 % (35.3-44.9) L 09/04/16 07:08 MCV 70.8 fL (83.0-100.0) L 09/04/16 07:08 MCH 24.6 pg (28.0-33.3) L 09/04/16 07:08 RDW 16.2 % (11.5-14.5) H 09/04/16 07:08 Nucleated RBCs/100 WBC 0.2 /100 WBC (0) H 09/03/16 03:01 Hypersegmented Neuts Present (Not Present) A 09/03/16 03:01 Immature Plt Fraction 8.1 % (1.1-6.1) H 09/04/16 07:08 PT 13.1 Seconds (9.4-12.1) H 09/04/16 10:44 ABG pO2 84 mmHg (85-104) L 09/03/16 18:35 VBG pCO2 37 mmHg (41-51) L 09/03/16 03:01 VBG pO2 42 mmHg (25-40) H 09/03/16 03:01 Sodium 134 mEq/L (136-145) L 09/05/16 03:32 Potassium 4.6 mEq/L (3.5-4.5) H 09/05/16 03:32 BUN 46 mg/dL (7-20) H 09/05/16 03:32 Creatinine 1.86 mg/dL (0.57-1.11) H 09/05/16 03:32 Est GFR ( Amer) 34 (> 60) L 09/05/16 03:32 Est GFR (Non-Af Amer) 28 (> 60) L 09/05/16 03:32 Glucose 202 mg/dL (70-99) H 09/05/16 03:32 POC Glucose 192 (58-89) H 09/05/16 07:40 Hemoglobin A1c 6.3 % (-5.6) H 09/03/16 07:12 Calcium 8.1 mg/dL (8.6-10.8) L 09/05/16 03:32 Ionized Calcium 1.09 mmol/L (1.15-1.35) L 09/04/16 10:44 Magnesium 1.2 mg/dL (1.6-2.6) L 09/04/16 10:44 Iron 14 mcg/dL (50-170) L 09/04/16 10:44 % Saturation 7 % (15-50) L 09/04/16 10:44 Transferrin 134 mg/dL (180-382) L 09/04/16 10:44 Troponin I 0.24 ng/mL (0-0.03) H* 09/04/16 00:58 B-Natriuretic Peptide 4793 pg/mL (0-100) H 09/03/16 03:01 Cholesterol 260 mg/dL (< 200) H 09/03/16 07:12 LDL Cholesterol, Calc 187 mg/dL (0-99) H 09/03/16 07:12 Cholesterol/HDL Ratio 5.3 (0-4.9) H 09/03/16 07:12 25-OH Vitamin D Total 15 ng/mL (30-80) L 09/04/16 10:44 Folate 5.8 ng/mL (7.0-31.4) L 09/04/16 10:44 Free T3 1.43 pg/mL (1.71-3.71) L 09/03/16 11:45 PTH Intact 248.5 pg/ml (8.5-72.5) H 09/04/16 10:44 Urine Protein 100 mg/dL (Neg-Trace) H 09/04/16 12:50 Urine Blood Trace (Negative) H 09/04/16 12:50 Urine Microscopic RBC 5-15 per hpf (0-3) H 09/04/16 12:50 Ur Squamous Epith Cells Many per lpf (None-Few) H 09/04/16 12:50 Protein/Creatinin Ratio 5.80 mg/mg (0-0.20) H 09/04/16 12:50 Urine Total Protein 116 mg/dL (1-14) H 09/04/16 12:50 - Microbiology Findings Microbiology Findings: Microbiology, Last 48 Hours 09/03/16 07:12 Blood Culture - Preliminary Peripheral Venipuncture No growth. 09/03/16 06:16 Blood Culture - Preliminary Peripheral Venipuncture No growth. - Clinical Findings Intake & Output: Intake & Output 09/04/16 09/05/16 09/05/16 23:59 07:59 15:59 Output Total 950 / 950 625 / 625 600 / 600 Balance -950 / -950 -625 / -625 -600 / -600 Consult Discharge Plan - Plan Referrals: Tiffani Christensen DO [Primary Care Provider] - Massimo Freed, OPERATIONAL REVIEW SERGEANT [Advanced Practice Nurse] - 09/16/16 10:30 am <Blayne Damian - Last Filed: 09/05/16 18:07> Date of Encounter: 09/05/16 Objective PUL Vital signs: Last Vital Signs Temp 98.1 F 09/05/16 08:04 Pulse 74 09/05/16 11:00 Resp 18 09/05/16 10:00 BP 161/72 09/05/16 10:00 Pulse Ox 95 09/05/16 10:00 Results - Laboratory Findings CBC and BMP: 09/04/16 07:08 09/05/16 03:32 ABG ABG pH 7.41 pH Units (7.32-7.45) 09/03/16 18:35 ABG pCO2 39 mmHg (35-45) 09/03/16 18:35 ABG pO2 84 mmHg (85-104) L 09/03/16 18:35 ABG O2 Saturation 96 % (95-98) 09/03/16 18:35 PT/INR, D-dimer PT 13.1 Seconds (9.4-12.1) H 09/04/16 10:44 Abnormal lab findings: Abnormal lab results Hgb 9.6 g/dL (11.5-15.4) L 09/04/16 07:08 Hct 27.6 % (35.3-44.9) L 09/04/16 07:08 MCV 70.8 fL (83.0-100.0) L 09/04/16 07:08 MCH 24.6 pg (28.0-33.3) L 09/04/16 07:08 RDW 16.2 % (11.5-14.5) H 09/04/16 07:08 Nucleated RBCs/100 WBC 0.2 /100 WBC (0) H 09/03/16 03:01 Hypersegmented Neuts Present (Not Present) A 09/03/16 03:01 Immature Plt Fraction 8.1 % (1.1-6.1) H 09/04/16 07:08 PT 13.1 Seconds (9.4-12.1) H 09/04/16 10:44 ABG pO2 84 mmHg (85-104) L 09/03/16 18:35 VBG pCO2 37 mmHg (41-51) L 09/03/16 03:01 VBG pO2 42 mmHg (25-40) H 09/03/16 03:01 Sodium 134 mEq/L (136-145) L 09/05/16 03:32 Potassium 4.6 mEq/L (3.5-4.5) H 09/05/16 03:32 BUN 46 mg/dL (7-20) H 09/05/16 03:32 Creatinine 1.86 mg/dL (0.57-1.11) H 09/05/16 03:32 Est GFR ( Amer) 34 (> 60) L 09/05/16 03:32 Est GFR (Non-Af Amer) 28 (> 60) L 09/05/16 03:32 Glucose 202 mg/dL (70-99) H 09/05/16 03:32 POC Glucose 192 (58-89) H 09/05/16 07:40 Hemoglobin A1c 6.3 % (-5.6) H 09/03/16 07:12 Calcium 8.1 mg/dL (8.6-10.8) L 09/05/16 03:32 Ionized Calcium 1.09 mmol/L (1.15-1.35) L 09/04/16 10:44 Magnesium 1.2 mg/dL (1.6-2.6) L 09/04/16 10:44 Iron 14 mcg/dL (50-170) L 09/04/16 10:44 % Saturation 7 % (15-50) L 09/04/16 10:44 Transferrin 134 mg/dL (180-382) L 09/04/16 10:44 Troponin I 0.24 ng/mL (0-0.03) H* 09/04/16 00:58 B-Natriuretic Peptide 4793 pg/mL (0-100) H 09/03/16 03:01 Cholesterol 260 mg/dL (< 200) H 09/03/16 07:12 LDL Cholesterol, Calc 187 mg/dL (0-99) H 09/03/16 07:12 Cholesterol/HDL Ratio 5.3 (0-4.9) H 09/03/16 07:12 25-OH Vitamin D Total 15 ng/mL (30-80) L 09/04/16 10:44 Folate 5.8 ng/mL (7.0-31.4) L 09/04/16 10:44 Free T3 1.43 pg/mL (1.71-3.71) L 09/03/16 11:45 PTH Intact 248.5 pg/ml (8.5-72.5) H 09/04/16 10:44 Urine Protein 100 mg/dL (Neg-Trace) H 09/04/16 12:50 Urine Blood Trace (Negative) H 09/04/16 12:50 Urine Microscopic RBC 5-15 per hpf (0-3) H 09/04/16 12:50 Ur Squamous Epith Cells Many per lpf (None-Few) H 09/04/16 12:50 Protein/Creatinin Ratio 5.80 mg/mg (0-0.20) H 09/04/16 12:50 Urine Total Protein 116 mg/dL (1-14) H 09/04/16 12:50 - Microbiology Findings Microbiology Findings: Microbiology, Last 48 Hours 09/03/16 07:12 Blood Culture - Preliminary Peripheral Venipuncture No growth. 09/03/16 06:16 Blood Culture - Preliminary Peripheral Venipuncture No growth. - Clinical Findings Intake & Output: Intake & Output 09/04/16 09/05/16 09/05/16 23:59 07:59 15:59 Output Total 950 / 950 625 / 625 600 / 600 Balance -950 / -950 -625 / -625 -600 / -600 - Attending Attestation I examined this patient and my medical decision-making was reviewed with the LIQUOR BLENDER/PA/Advanced Practice Nurse/Resident Physician. I agree with the documented findings, disposition and treatment plan as described except to the extent set forth below. Patient seen and examined. Labs, radiology, chart personally reviewed. Agree with resident's history and physical, assessment, plan with following comments: SUPERVISOR TELEPHONE CLERKS: Patient follows commands, Pulmonary: Acceptable oxygenation and ventilation. Patient breathing better. Continue bronchodilators and wean off systemic steroid when nephrology wants to decrease. Cardiovascular: Remain hypertensive and this will be deferred to heater helper forge and spa associate. GI: Nutrition per dietary and GI prophylaxis per routine Heme: DVT prophylaxis per routine ID: Continue antibiotic for COPD exacerbation. Renal; urine out put and renal funtion reviewed Endorcine: blood glucose is monitored Lines: all lines checked and no evidence of infections Skin: skin care to prevent pressure ulcers per nursing routine care
[2016-09-05] MEDS ORDERED: D5% in Water 1,000 ML IV PRN (12:44)
[2016-09-05] MEDS ORDERED: Dextrose Gel 15 GM PO PRN ×2 (12:44)
[2016-09-05] MEDS ORDERED: Sennosides/Docusate Sodium TABLET PO PRN (12:44)
[2016-09-05] MEDS ORDERED: Acetaminophen 325 MG TABLET PO PRN (12:44)
[2016-09-05] MEDS ORDERED: Naloxone 0.4 MG/ML INJ IVP PRN (12:44)
[2016-09-05] MEDS ORDERED: *HR* Dextrose 50 % in Water (Syg) 50 ML SYRINGE IVP PRN (12:44)
[2016-09-05] MEDS ORDERED: Ondansetron 4 MG/2 ML VIAL IVP PRN (12:44)
[2016-09-05] MEDS: cloNIDine HCl 0.1 MG TABLET PO SCH ×2 (15:14→21:01)
[2016-09-05] MEDS: hydrALAZINE 25 MG TABLET PO SCH ×2 (15:15→21:01)
--- NOTE | 2016-09-05 16:41 | Arterial Study Report ---
Renal Duplex Patient Name:Sarah France Order Number:[id number] Procedure Date:09/04/2016 Date:1955ge:60 yrs Gender:Female Height:170.18 cm / 67.00 inWeight:107.05 kg / 236.00 lb Location:[facility] Room #: IC09 Vp Packaging:Genna Ely RDCS, RVT Referring MD:Kenn Tavares DO tso:Tiffani Christensen DO Reading MD:Edmond Salinas MD Primary Indications:Resistant Hypertension, Hypertensive Emergency Risk Factors Yes/No Hypertension Yes Diabetes Yes Hypercholesterolemia No Smoker Previous Yes Hx of CAD/PTCA Yes Impressions: The bilateral renal arteries are hemodynamically well maintained. Recommendations: After imaging the patient returned to their room. Test completed on 09/04/2016 at 7:28:16 am. Findings Renal Anatomy: The right kidney size measures 11.4 x 5.2 x 7.4 cm. The left kidney size measures 11.2 x 5.6 x 5.4 cm. Prior Study: No prior study available for comparison. Renal Duplex Right RAR:1.7 Left RAR:2.2 Side Vessel PSV EDV RI PI Accel Aorta 38.00 8.00 0.79 Left Renal Artery Hilum 27.00 6.00 0.78 Left Distal Renal Artery 82.00 9.00 0.89 Left Mid Renal Artery 80.00 10.00 0.88 Left Proximal Renal Artery 74.00 9.00 0.88 Right Renal Artery Hilum 20.00 4.00 0.80 Right Proximal Renal Artery 60.00 7.00 0.88 Right Mid Renal Artery 60.00 10.00 0.83 Right Distal Renal Artery 63.00 9.00 0.86 Updated by Edmond Salinas MD on 09/05/2016 4:36:46 PM electronically signed on 09/05/2016 4:37:11 PM with status of Final
[2016-09-05] MEDS: amLODIPine 5 MG TABLET PO SCH (21:01)
[2016-09-06] MEDS: *HR* Morphine 2 MG/ML SYRINGE IVP PRN ×2 (04:30→20:07)
[2016-09-06 04:33] LABS: Basophils % 0.1 %; Hematocrit 28.6 % (35.3-44.9); Hemoglobin 9.7 g/dL (11.5-15.4); Immature Granulocytes % 0.6 % (0-4); Lymphocytes # 0.8 K/mcL (0.6-4.6); Lymphocytes % 10.5 %; Mean Corpuscular HGB Conc 33.9 g/dL (31.6-35.5); Mean Corpuscular Hemoglobin 24.7 pg (28.0-33.3); Mean Platelet Volume 11.1 fL (9.4-12.4); Monocytes # 0.6 K/mcL (0.0-1.3); Monocytes % 8.3 %; Neutrophils # 5.8 K/mcL (1.6-8.9); Nucleated Red Blood Cells 0.3 /100 WBC (0); Platelet Count 255 K/mcL (140-400); Red Blood Count 3.92 M/mcL (3.82-4.97); Red Cell Distribution Width 15.9 % (11.5-14.5); Segmented Neutrophils % 80.5 %
[2016-09-06] MEDS: Ipratropium/Albuterol Neb 3 ML IH SCH ×4 (04:36→22:31)
[2016-09-06 04:49] LABS: Potassium 4.2 mEq/L (3.5-4.5)
[2016-09-06] MEDS: MethylPREDNISolone 40 MG/ML VIAL IVP SCH ×2 (05:38→16:24)
[2016-09-06] MEDS ORDERED: *HR* Enoxaparin 40 MG/0.4 ML SYRINGE SQ SCH (06:00)
[2016-09-06 07:46] LABS: ANA IgG by ELISA NONE DETECTED (None Detected)
[2016-09-06] MEDS: Insulin LISPRO 300 UNITS/3 ML VIAL SQ SCH ×4 (07:47→21:37)
[2016-09-06 07:54] LABS: Angiotensin Converting Enzyme <5 U/L (9-67)
[2016-09-06] MEDS: Azithromycin 250 MG TABLET PO SCH (08:09)
[2016-09-06] MEDS: Gabapentin 300 MG CAPSULE PO SCH ×3 (08:09→20:13)
[2016-09-06] MEDS: *HR* Ticagrelor 90 MG TABLET PO SCH ×2 (08:10→20:13)
[2016-09-06] MEDS: Aspirin Enteric Coated 81 MG Tablet PO SCH (08:10)
[2016-09-06] MEDS: cloNIDine HCl 0.1 MG TABLET PO SCH ×3 (08:10→20:13)
[2016-09-06] MEDS: amLODIPine 5 MG TABLET PO SCH ×2 (08:11→20:13)
[2016-09-06] MEDS: hydrALAZINE 25 MG TABLET PO SCH ×3 (08:12→20:13)
[2016-09-06 08:33] LABS: Alpha 2 Globulin (PEP) 0.99 g/dL (0.48-1.05); Beta Globulin (PEP) 0.73 g/dL (0.48-1.10)
[2016-09-06 09:48] LABS: IFE Reflexed NOT DONE
[2016-09-06] MEDS: Budesonide/Formoterol 160/4.5 MDI IH SCH ×2 (10:22→22:31)
[2016-09-06] MEDS: Furosemide 40 MG/4 ML VIAL IVP SCH ×2 (10:39→20:11)
--- NOTE | 2016-09-06 11:23 | Nephrology Progress Note ---
Date of Encounter: 09/06/16 Time of Encounter: 11:21 - Assessment and Plan (1) Acute worsening of stage 3 chronic kidney disease Current Visit: Yes Status: Acute Patient with KEEGAN on CKD3. Etiology of CKD3 unclear at this time, but possibly related to diabetes and/or hypertension. Her most recent rise in creatinine is concerning for intrinsic renal disease as she has significant proteinuria ( estimated 7 gram via random protein to creatinine ratio) and recently uncontrolled and severe hypertension. Will order work-up for possible etiologies of intrinsic renal disease. Await results of renal ultrasound. Patient could benefit from renal biopsy. In talking with IR nurse the patient will need to be off anticoagulants/antiplatelets for 5 days. Cardiology indicates that the patient will not be able to discontinue anticoagulant/ antiplatelet until 07/04. Will monitor for worsening renal function. Patient is aware of how this will complicate her care. Continue to avoid nephrotoxins. Adjust medications for renal function. (2) Hypertensive emergency Current Visit: Yes Status: Acute Patient with uncontrolled hypertension. Improved control with nicardipine. Agree with weaning off iv drip and adjusting blood pressure medications. Goal blood pressure is 130/80, but this needs to be acheived slowly (over days) to avoid overcorrection of her hypertension. Awaiting serum metanephrine. Recent worsening of uncontrolled hypertension possibly reflects intrinsic renal pathology. Recommend resuming clonidine to avoid rebound hypertension. (3) Insulin dependent diabetes mellitus Current Visit: Yes Status: Chronic Defer management to primary team. (4) Anemia Current Visit: No Status: Chronic Monitor for active bleeding. Iron saturation is low. Will order IV replacement if ferritin is not greatly elevated. Will check vitamin b12 and folate. Qualifiers: Anemia type: unspecified type Qualified Code(s): D64.9 - Anemia, unspecified (5) Peripheral neuropathy Current Visit: No Status: Chronic Qualifiers: Peripheral neuropathy type: polyneuropathy associated with underlying disease Qualified Code(s): G63 - Polyneuropathy in diseases classified elsewhere (6) Acute respiratory failure Current Visit: Yes Status: Acute Wean supplemental oxygen to room air. Keep O2 saturation >92%. Qualifiers: Respiratory failure complication: hypoxia Qualified Code(s): J96.01 - Acute respiratory failure with hypoxia (7) Vitamin D deficiency Current Visit: Yes Status: Acute will order replacement. Subjective Principal diagnosis: Dyspnea, HTN emergency Interval history: Ms. France feels slightly better this morning. She denies chest pain and her breathing is improving. Her ROS otherwise appears to be stable. Objective - Vital Signs Vital signs: Vital Signs Temp Pulse Resp BP Pulse Ox 09/06/16 07:23 176/93 09/06/16 07:09 97.9 F 72 20 180/97 99 09/06/16 04:38 20 98 09/06/16 04:36 98.1 F 74 15 99 09/06/16 04:30 180/97 09/05/16 22:35 16 94 L 09/05/16 21:04 98.4 F 98 18 154/92 98 09/05/16 17:15 97.6 F 77 18 176/88 98 09/05/16 16:00 74 20 164/79 95 09/05/16 15:25 16 96 09/05/16 15:04 74 09/05/16 12:00 74 20 162/85 95 Intake and Output 09/05/16 09/06/16 09/06/16 23:59 07:59 15:59 Other: Weight 111.5 kg Blood Glucose* 353 335 285 - General Appearance General appearance: Present: well-developed, well-nourished EENT: Present: ATNC Neck: Present: supple Respiratory: Present: clear Cardiology: Present: edema, regular rate, regular rhythm Gastrointestinal: Present: normoactive bowel sounds, no tenderness Neurologic: Present: alert and oriented x3 Musculoskeletal: Present: no cyanosis Psychiatric: Present: mood/affect appropriate - Lab 09/06/16 04:25 09/06/16 04:25 Most recent lab results ABG pH 7.41 pH Units (7.32-7.45) 09/03/16 18:35 ABG pCO2 39 mmHg (35-45) 09/03/16 18:35 ABG pO2 84 mmHg (85-104) L 09/03/16 18:35 ABG HCO3 24.7 mEQ/L (21-27) 09/03/16 18:35 ABG O2 Saturation 96 % (95-98) 09/03/16 18:35 Calcium 8.0 mg/dL (8.6-10.8) L 09/06/16 04:25 Phosphorus 4.5 mg/dL (2.3-4.7) 09/04/16 10:44 Magnesium 1.2 mg/dL (1.6-2.6) L 09/04/16 10:44 Urine Creatinine 20 mg/dL 09/04/16 12:50 Urine Sodium 62.0 mEq/L 09/03/16 10:10 Urine Total Protein 116 mg/dL (1-14) H 09/04/16 12:50 Consult Discharge Plan - Plan Referrals: Tiffani Christensen DO [Primary Care Provider] - Massimo Freed CNP [Advanced Practice Nurse] - 09/16/16 10:30 am
--- NOTE | 2016-09-06 12:54 | Internal Med Progress Note ---
Date of Encounter: 09/06/16 Time of Encounter: 11:00 - Assessment and plan (1) Acute respiratory failure Current Visit: Yes Status: Acute Assessment and plan: Weaning oxygen as able. She had been on high flow NC. Qualifiers: Respiratory failure complication: hypoxia Qualified Code(s): J96.01 - Acute respiratory failure with hypoxia (2) Hypertensive emergency Current Visit: Yes Status: Acute Assessment and plan: Blood pressure overall has improved. She is on multiple medications and is being seen by nephrology. No new issues currently. (3) Acute diastolic (congestive) heart failure Current Visit: Yes Status: Acute Assessment and plan: Clinically improving. Less dyspneic. Continue current plan of care. (4) Acute worsening of stage 3 chronic kidney disease Current Visit: Yes Status: Acute Assessment and plan: Per nephrology. Needs kidney biopsy but unable to do because she has 2 recent ANGELIKA placed and needs to stay on Brilinta. Monitoring renal function and avoiding nephrotoxins. (5) COPD exacerbation Current Visit: Yes Status: Acute Assessment and plan: Weaning oxygen as able with maintaining saturations above 92% (6) Insulin dependent diabetes mellitus Current Visit: Yes Status: Chronic Assessment and plan: Blood sugar currently controlled. (7) Anemia Current Visit: No Status: Chronic Assessment and plan: Most likely related to chronic renal disease/chronic disease. Following and transfusing if needed. Qualifiers: Anemia type: other cause Other causes of anemia: chronic disease, kidney Qualified Code(s): N18.9 - Chronic kidney disease, unspecified; D63.1 - Anemia in chronic kidney disease (8) Hyperlipidemia Current Visit: No Status: Chronic Assessment and plan: Following. Statin. 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 France is currently admitted for acute hypertensive emergency and acute diastolic heart failure. She remains moderate to high risk due to potential for worsening renal and cardiac status. Ms. France feels OK at this time. She is resting comfortably in bed. No CP or dyspnea. No fever or chills. No GI symptoms. She denies any new needs at this time. - Constitutional Vitals: Temp Pulse Resp BP Pulse Ox 98.7 F 72 18 138/75 96 09/06/16 11:56 09/06/16 11:56 09/06/16 11:56 09/06/16 11:56 09/06/16 11:56 General appearance: Present: A&O X 3, answers questions appropriately - Head Head exam: Present: normocephalic - Eye Eye exam: Present: conjuntiva pink - ENT ENT exam: Present: mucous membranes dry - Respiratory Respiratory exam: Present: decreased breath sounds, CTAB - Cardiovascular Cardiovascular exam: Present: distant heart sounds, RRR - GI/Abdominal GI/Abdominal exam: Present: normal bowel sounds, soft. Absent: tenderness - Extremities Exam Extremities exam: Present: warm. Absent: tenderness - Neurological Exam Neurological exam: Present: alert, oriented X3, no focal deficits - Skin Skin exam: Present: dry, warm. Absent: rash Internal Medicine: Result - Labs CBC & Chem 7: 09/06/16 04:25 09/06/16 04:25 Labs: Short CBC 09/06/16 Range/Units 04:25 WBC 7.2 (4.3-11.1) K/mcL Hgb 9.7 L (11.5-15.4) g/dL Hct 28.6 L (35.3-44.9) % Plt Count 255 (140-400) K/mcL Neutrophils # 5.8 (1.6-8.9) K/mcL BMP 09/06/16 04:25 Sodium 134 L Potassium 4.2 Chloride 101 Carbon Dioxide 23 BUN 61 H D Creatinine 1.96 H Glucose 352 H Calcium 8.0 L - ABG Interpretation ABG results: ABG ABG pH 7.41 pH Units (7.32-7.45) 09/03/16 18:35 ABG pCO2 39 mmHg (35-45) 09/03/16 18:35 ABG pO2 84 mmHg (85-104) L 09/03/16 18:35 ABG O2 Saturation 96 % (95-98) 09/03/16 18:35 PT/INR, D-dimer PT 13.1 Seconds (9.4-12.1) H 09/04/16 10:44 Consult Discharge Plan - Plan Referrals: Tiffani Christensen DO [Primary Care Provider] - Massimo Freed CNP [Advanced Practice Nurse] - 09/16/16 10:30 am
[2016-09-07] MEDS: Ipratropium/Albuterol Neb 3 ML IH SCH ×4 (03:43→20:15)
[2016-09-07 05:43] LABS: Potassium 4.5 mEq/L (3.5-4.5)
[2016-09-07 05:44] LABS: Albumin 2.1 g/dL (3.5-5.0); Calcium 8.4 mg/dL (8.6-10.8); Magnesium 1.7 mg/dL (1.6-2.6); Phosphorous 4.2 mg/dL (2.3-4.7)
[2016-09-07] MEDS: *HR* Morphine 2 MG/ML SYRINGE IVP PRN ×3 (06:32→22:53)
[2016-09-07] MEDS: *HR* Enoxaparin 30 MG/0.3 ML SYRINGE SQ SCH (06:32)
[2016-09-07] MEDS: Aspirin Enteric Coated 81 MG Tablet PO SCH (08:56)
[2016-09-07] MEDS: cloNIDine HCl 0.1 MG TABLET PO SCH ×3 (08:56→22:40)
[2016-09-07] MEDS: amLODIPine 5 MG TABLET PO SCH ×2 (08:56→22:41)
[2016-09-07] MEDS: Azithromycin 250 MG TABLET PO SCH (08:57)
[2016-09-07] MEDS: hydrALAZINE 25 MG TABLET PO SCH ×4 (08:57→22:40)
[2016-09-07] MEDS: Furosemide 40 MG/4 ML VIAL IVP SCH ×2 (08:57→22:41)
[2016-09-07] MEDS: Gabapentin 300 MG CAPSULE PO SCH ×3 (08:57→22:40)
[2016-09-07] MEDS: *HR* Ticagrelor 90 MG TABLET PO SCH ×2 (08:57→22:40)
[2016-09-07] MEDS: Insulin LISPRO 300 UNITS/3 ML VIAL SQ SCH ×4 (08:58→22:48)
[2016-09-07] MEDS: Budesonide/Formoterol 160/4.5 MDI IH SCH ×2 (09:22→20:15)
--- NOTE | 2016-09-07 10:17 | Internal Med Progress Note ---
<Chris Mathew - Last Filed: 09/07/16 14:18> Date of Encounter: 09/07/16 Time of Encounter: 10:14 - Assessment and plan (1) Acute respiratory failure Current Visit: Yes Status: Resolved Assessment and plan: Patients acute respiratory failure was due to acute on chronic diastolic chf 2nd to hypertensive emergency. She was on high flow O2 but has been weaned to room air. Patient's oxygen saturations are above 90%. We will continue to monitor her respiratory status. Qualifiers: Respiratory failure complication: hypoxia Qualified Code(s): J96.01 - Acute respiratory failure with hypoxia (2) Acute diastolic (congestive) heart failure Current Visit: Yes Status: Acute Assessment and plan: Patient's dyspnea has improved considerably from admission. Cumulatively she has intake output balance of -5600 mL. Patient is being diuresed with Lasix. We will continue this. Her bicarbonate and potassium remain stable. Patient's creatinine has worsened since admission and is now 2.04. As per nephrology worsening creatinine is most likely secondary to intrinsic renal disease and no diuresis. (3) Acute worsening of stage 3 chronic kidney disease Current Visit: Yes Status: Acute Assessment and plan: Per nephrology. Patient has worsening renal function since admission. Worsening kidney disease may be secondary to hypertension and/or diabetes. Patient had significant proteinuria with protein to creatinine ratio 7. Furthermore she continues to have severe hypertension. Today her blood pressure was 190 systolic. Renal ultrasound shows hemodynamically stable kidney. Plan was to obtain a renal biopsy however patient just underwent PCI needs to be on Birllinta to until August 2016. Continue to avoid nephrotoxic drugs. Furthermore we will put patient on 60 mg of prednisone daily to treat for glomerular disease. (4) COPD exacerbation Current Visit: Yes Status: Ruled-out Assessment and plan: Patients acute resp failure more likely end to acute CHF exacerbation as diureses has helped improve patients respiratory status. We will continue her Symbicort, finished 5 days of Zithromax and breathing treatments. (5) Hypertensive emergency Current Visit: Yes Status: Acute Assessment and plan: Patient presented with a blood pressure of greater than 200 and was started on a Cardene drip. She had an organ damage with elevated troponin, pulmonary edema , KEEGAN on security. While patient's blood pressure had improved with systolic in 130s , her systolic pressure today was in the 190s. Patient's hypertension is secondary to worsening kidney function. Renal ultrasound did not show any evidence of renal artery stenosis. Urine metanephrines have been ordered as well to evaluate for pheochromocytoma. Patient's blood pressure medication regimen includes: Amlodipine 10 mg at night Clonidine 0.2 mg by mouth 3 times a day Hydralazine 50 mg by mouth 4 times a day Isordil 30 mg by mouth 3 times a day Hydralazine 10 mg IV push every 4H when necessary We will continue to monitor her blood pressure in both arms. (6) Vitamin D deficiency Current Visit: Yes Status: Acute Assessment and plan: Patient's vitamin D level at 15. This may be secondary to decreased intake in diet, or metabolic phenomenon including intrinsic renal disease. Patient also has hyperparathyroidism. This may due to intrinsic renal disease and inability for the kidneys to produce vitamin D. Patient will get 50,000 units of ergocalciferol every week for the next 8 weeks. (7) Insulin dependent diabetes mellitus Current Visit: Yes Status: Chronic Assessment and plan: Patient's blood sugar were under control on admission however after starting steroids her sugars have been in the upper 300s. Her hemoglobin A1c 6.3. We will start her on basal insulin of 28 units Levemir. Continue diabetic diet. (8) DVT prophylaxis Current Visit: No Status: Acute Assessment and plan: Continue Lovenox (9) Anemia Current Visit: No Status: Chronic Assessment and plan: Most likely related to chronic renal disease/chronic disease. Patient has a microcytic hyperchromic anemia. She is iron deficient. Ferritin level has been ordered. Folate level is 5.8. Vitamin B12 is 491. We will place folic acid and vitamin B-12. Qualifiers: Anemia type: other cause Other causes of anemia: chronic disease, kidney Qualified Code(s): N18.9 - Chronic kidney disease, unspecified; D63.1 - Anemia in chronic kidney disease - Subjective Interval history: 60-year-old female admitted for acute hypertensive emergency and acute diastolic heart failure. Patient states she remains fatigued today. Her blood pressure continues to be elevated at 190 systolic even though if patient's on 4 different blood pressure medications. She denies any chest pain, shortness of breath, abdominal pain, nausea, vomiting. - Constitutional Vitals: Temp Pulse Resp BP Pulse Ox 97.6 F 77 18 198/98 93 L 09/07/16 07:20 09/07/16 07:20 09/07/16 07:20 09/07/16 07:20 09/07/16 07:20 General appearance: Present: A&O X 3, answers questions appropriately - Head Head exam: Present: normocephalic - Eye Eye exam: Present: PERRL, conjuntiva pink, sclera anicteric - Neck Neck exam general surgery: Present: supple, trachea midline. Absent: lymphadenopathy - Respiratory Respiratory exam: Present: CTAB. Absent: accessory muscle use, rales, rhonchi, wheezes - Cardiovascular Cardiovascular exam: Present: RRR, +S1, +S2. Absent: diastolic murmur, gallop, rubs, systolic murmur Additional comments: 3/6 2nd intercostal systolic systolic murmur aortic stenosis. - GI/Abdominal GI/Abdominal exam: Present: normal bowel sounds, soft, no peritoneal signs. Absent: distended, tenderness - Extremities Exam Extremities exam: Present: warm, radial pulses palpable and symetrical. Absent : calf tenderness, cyanotic, pedal edema - Neurological Exam Neurological exam: Present: CN II-XII intact, oriented X3, no focal deficits. Absent: pronater drift, facial droop, speech deficit - Skin Skin exam: Present: dry, intact Internal Medicine: Result - Labs CBC & Chem 7: 09/06/16 04:25 09/07/16 05:19 Labs: BMP 09/07/16 05:19 Sodium 136 Potassium 4.5 Chloride 103 Carbon Dioxide 21 BUN 70 H Creatinine 2.04 H Glucose 337 H Calcium 8.4 L Liver Function 09/07/16 Range/Units 05:19 Albumin 2.1 L (3.5-5.0) g/dL - ABG Interpretation ABG results: ABG ABG pH 7.41 pH Units (7.32-7.45) 09/03/16 18:35 ABG pCO2 39 mmHg (35-45) 09/03/16 18:35 ABG pO2 84 mmHg (85-104) L 09/03/16 18:35 ABG O2 Saturation 96 % (95-98) 09/03/16 18:35 PT/INR, D-dimer PT 13.1 Seconds (9.4-12.1) H 09/04/16 10:44 Consult Discharge Plan - Plan Referrals: Tiffani Christensen DO [Primary Care Provider] - Massimo Freed T[employer] INSPECTOR [Advanced Practice Nurse] - 09/16/16 10:30 am <Louie Mcdowell - Last Filed: 09/07/16 17:27> Date of Encounter: 09/07/16 - Assessment and plan (1) Acute respiratory failure Current Visit: Yes Status: Resolved Qualifiers: Respiratory failure complication: hypoxia Qualified Code(s): J96.01 - Acute respiratory failure with hypoxia (2) Hypertensive emergency Current Visit: Yes Status: Acute (3) Acute diastolic (congestive) heart failure Current Visit: Yes Status: Acute (4) Acute worsening of stage 3 chronic kidney disease Current Visit: Yes Status: Acute (5) COPD exacerbation Current Visit: Yes Status: Ruled-out (6) Insulin dependent diabetes mellitus Current Visit: Yes Status: Chronic (7) Anemia Current Visit: No Status: Chronic Qualifiers: Anemia type: other cause Other causes of anemia: chronic disease, kidney Qualified Code(s): N18.9 - Chronic kidney disease, unspecified; D63.1 - Anemia in chronic kidney disease (8) Hyperlipidemia Current Visit: No Status: Chronic Qualifiers: Hyperlipidemia type: mixed hyperlipidemia Qualified Code(s): E78.2 - Mixed hyperlipidemia (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 - Constitutional Vitals: Temp Pulse Resp BP Pulse Ox 97.3 F L 69 16 134/67 95 09/07/16 16:02 09/07/16 16:02 09/07/16 16:02 09/07/16 16:02 09/07/16 16:02 Internal Medicine: Result - Labs CBC & Chem 7: 09/06/16 04:25 09/07/16 05:19 Labs: BMP 09/07/16 05:19 Sodium 136 Potassium 4.5 Chloride 103 Carbon Dioxide 21 BUN 70 H Creatinine 2.04 H Glucose 337 H Calcium 8.4 L Liver Function 09/07/16 Range/Units 05:19 Albumin 2.1 L (3.5-5.0) g/dL - ABG Interpretation ABG results: ABG ABG pH 7.41 pH Units (7.32-7.45) 09/03/16 18:35 ABG pCO2 39 mmHg (35-45) 09/03/16 18:35 ABG pO2 84 mmHg (85-104) L 09/03/16 18:35 ABG O2 Saturation 96 % (95-98) 09/03/16 18:35 PT/INR, D-dimer PT 13.1 Seconds (9.4-12.1) H 09/04/16 10:44 - Attending Attestation I examined this patient and my medical decision-making was reviewed with the Resident Physician on 09/07/16. I agree with the documented findings, disposition and treatment plan as described except to the extent set forth below. Ms. [place] is currently admitted for hypertensive emergency and acute renal failure. She remains moderate to high risk due to potential for further renal dysfunction and neurologic issue. Ms. [place] feels somewhat better today. No CP or worsening dyspnea. No cough. No headache. BP has been high in the handyperson. Urine output is OK. Exam Alert. Comfortable Heart reg Lungs no wheeze I/P 1. Hypertensive emergency 2. KEEGAN 3. CKD 4. Pagets disease of bone Further diagnoses and plan as above.
[2016-09-07] MEDS: Cyanocobalamin (B-12) 1,000 MCG TABLET PO SCH (12:07)
[2016-09-07 12:26] LABS: Myeloperoxidase Ab 3 AU/mL (0-19); Serine Protease-3 Antibody 1 AU/mL (0-19)
[2016-09-07 14:00] LABS: Urine Collection Duration NOT PROVIDED hr; Urine Collection Volume NOT PROVIDED mL
[2016-09-07 15:37] LABS: Metanephrine, Plasma 0.13 nmol/L (0.00-0.49)
[2016-09-07] MEDS: predniSONE 20 MG TABLET PO SCH (15:49)
--- NOTE | 2016-09-07 18:37 | Nephrology Progress Note ---
Date of Encounter: 09/07/16 Time of Encounter: 18:37 - Assessment and Plan (1) Acute worsening of stage 3 chronic kidney disease Current Visit: Yes Status: Acute Patient with KEEGAN on CKD3. Etiology of CKD3 unclear at this time, but possibly related to diabetes and/or hypertension. Her most recent rise in creatinine is concerning for intrinsic renal disease as she has significant proteinuria ( estimated 7 gram via random protein to creatinine ratio) and recently uncontrolled and severe hypertension. Will order work-up for possible etiologies of intrinsic renal disease. Patient could benefit from renal biopsy. In talking with IR nurse the patient will need to be off anticoagulants/antiplatelets for 5 days. Cardiology indicates that the patient will not be able to discontinue anticoagulant/ antiplatelet until 07/04. Will treat empirically with prednisone as the patient's creatinine continues to rise. Continue to avoid nephrotoxins. Adjust medications for renal function. (2) Hypertensive emergency Current Visit: Yes Status: Acute Patient with uncontrolled hypertension. Goal blood pressure is 130/80, but this needs to be acheived slowly (over days) to avoid overcorrection of her hypertension. Awaiting serum metanephrine results. Recent worsening of uncontrolled hypertension possibly reflects intrinsic renal pathology. Continue to titrate medications as needed for blood pressure control. (3) Insulin dependent diabetes mellitus Current Visit: Yes Status: Chronic Defer management to primary team. (4) Anemia Current Visit: No Status: Chronic Monitor for active bleeding. Iron saturation is low. Oral replacement ordered. Qualifiers: Anemia type: other cause Other causes of anemia: chronic disease, kidney Qualified Code(s): N18.9 - Chronic kidney disease, unspecified; D63.1 - Anemia in chronic kidney disease (5) Peripheral neuropathy Current Visit: No Status: Chronic Qualifiers: Peripheral neuropathy type: polyneuropathy associated with underlying disease Qualified Code(s): G63 - Polyneuropathy in diseases classified elsewhere (6) Acute respiratory failure Current Visit: Yes Status: Resolved Wean supplemental oxygen to room air. Keep O2 saturation >92%. Qualifiers: Respiratory failure complication: hypoxia Qualified Code(s): J96.01 - Acute respiratory failure with hypoxia (7) Vitamin D deficiency Current Visit: Yes Status: Acute will order replacement. Subjective Principal diagnosis: Dyspnea, HTN emergency Interval history: Ms. [place] feels slightly better this morning. She denies chest pain and her breathing is improving. Her ROS otherwise appears to be stable. Objective - Vital Signs Vital signs: Vital Signs Temp Pulse Resp BP Pulse Ox 09/07/16 16:02 97.3 F L 69 16 134/67 95 09/07/16 11:47 98.1 F 74 18 179/86 94 L 09/07/16 09:20 16 91 L 09/07/16 07:20 97.6 F 77 18 198/98 93 L 09/07/16 05:14 98.9 F 72 14 199/99 95 09/07/16 03:43 16 90 L 09/06/16 22:31 16 92 L 09/06/16 21:37 98.2 F 65 19 139/81 95 Intake and Output 09/07/16 09/07/16 09/07/16 07:59 15:59 23:59 Intake Total 480 / 480 Output Total 1175 / 1175 Balance -1175 / -1175 480 / 480 Intake: Oral 480 / 480 Output: Catheter 1175 / 1175 Other: Meal Lunch Percent of Meal Consumed 80% Blood Glucose* 285 326 218 - General Appearance General appearance: Present: well-developed, well-nourished EENT: Present: ATNC Neck: Present: supple Respiratory: Present: clear Cardiology: Present: edema, regular rate, regular rhythm Gastrointestinal: Present: normoactive bowel sounds, no tenderness Integumentary: Present: warm and dry Neurologic: Present: alert and oriented x3 Musculoskeletal: Present: no cyanosis Psychiatric: Present: mood/affect appropriate - Lab 09/08/16 04:55 09/08/16 04:55 Most recent lab results ABG pH 7.41 pH Units (7.32-7.45) 09/03/16 18:35 ABG pCO2 39 mmHg (35-45) 09/03/16 18:35 ABG pO2 84 mmHg (85-104) L 09/03/16 18:35 ABG HCO3 24.7 mEQ/L (21-27) 09/03/16 18:35 ABG O2 Saturation 96 % (95-98) 09/03/16 18:35 Calcium 8.4 mg/dL (8.6-10.8) L 09/07/16 05:19 Phosphorus 4.2 mg/dL (2.3-4.7) 09/07/16 05:19 Magnesium 1.7 mg/dL (1.6-2.6) 09/07/16 05:19 Urine Creatinine 20 mg/dL 09/04/16 12:50 Urine Sodium 62.0 mEq/L 09/03/16 10:10 Urine Total Protein 116 mg/dL (1-14) H 09/04/16 12:50 Consult Discharge Plan - Plan Referrals: Tiffani Christensen DO [Primary Care Provider] - Massimo Freed CNP [Advanced Practice Nurse] - 09/16/16 10:30 am
[2016-09-07] MEDS ORDERED: Insulin DETEMIR 100 UNIT/ML X5UNITS SQ SCH (21:00)
[2016-09-08] MEDS: Ipratropium/Albuterol Neb 3 ML IH SCH ×4 (03:36→22:18)
[2016-09-08 05:10] LABS: Basophils % 0.2 %; Hematocrit 29.1 % (35.3-44.9); Hemoglobin 10.1 g/dL (11.5-15.4); Lymphocytes % 9.4 %; Mean Corpuscular HGB Conc 34.7 g/dL (31.6-35.5); Mean Corpuscular Hemoglobin 25.1 pg (28.0-33.3); Mean Corpuscular Volume 72.4 fL (83.0-100.0); Mean Platelet Volume 11.4 fL (9.4-12.4); Monocytes # 0.4 K/mcL (0.0-1.3); Monocytes % 4.2 %; Platelet Count 279 K/mcL (140-400); Red Blood Count 4.02 M/mcL (3.82-4.97); Red Cell Distribution Width 15.6 % (11.5-14.5); Segmented Neutrophils % 85.2 %
[2016-09-08 05:26] LABS: Calcium 8.3 mg/dL (8.6-10.8); Potassium 4.3 mEq/L (3.5-4.5)
[2016-09-08] MEDS: *HR* Enoxaparin 30 MG/0.3 ML SYRINGE SQ SCH (05:51)
[2016-09-08 06:00] LABS: Platelet Estimate Normal (Normal); Reactive Lymphocytes Present (Not Present)
--- NOTE | 2016-09-08 08:50 | Internal Med Progress Note ---
<Chris Mathew - Last Filed: 09/08/16 09:04> Date of Encounter: 09/08/16 Time of Encounter: 08:47 - Assessment and plan (1) Acute respiratory failure Current Visit: Yes Status: Resolved Assessment and plan: Resolved. Patients acute respiratory failure was due to acute on chronic diastolic chf 2nd to hypertensive emergency. She was on high flow O2 but has been weaned to room air. Patient's oxygen saturations are above 90%. We will continue to monitor her respiratory status. Qualifiers: Respiratory failure complication: hypoxia Qualified Code(s): J96.01 - Acute respiratory failure with hypoxia (2) Acute diastolic (congestive) heart failure Current Visit: Yes Status: Acute Assessment and plan: Patient's dyspnea has improved considerably from admission. Cumulatively she has intake output balance of -7000 mL. Patient is being diuresed with Lasix. We will continue this. Her bicarbonate and potassium remain stable. Patient's creatinine has improved to 1.87. As per nephrology worsening creatinine is most likely secondary to intrinsic renal disease and no diuresis. (3) Acute worsening of stage 3 chronic kidney disease Current Visit: Yes Status: Acute Assessment and plan: Per nephrology. Patient has worsening renal function since admission. Worsening kidney disease may be secondary to hypertension and/or diabetes. Patient had significant proteinuria with protein to creatinine ratio 7. Furthermore she continues to have severe hypertension. Today her blood pressure was 190 systolic. Renal ultrasound shows hemodynamically stable kidney. Plan was to obtain a renal biopsy however patient just underwent PCI needs to be on Birllinta to until August 2016. Continue to avoid nephrotoxic drugs. Improved kidney function Scr 1.87. May be due to starting prednisone. (4) COPD exacerbation Current Visit: Yes Status: Ruled-out Assessment and plan: Patients acute resp failure more likely end to acute CHF exacerbation as diureses has helped improve patients respiratory status. We will continue her Symbicort, finished 5 days of Zithromax and breathing treatments. (5) Hypertensive emergency Current Visit: Yes Status: Acute Assessment and plan: Patient presented with a blood pressure of greater than 200 and was started on a Cardene drip. She had an organ damage with elevated troponin, pulmonary edema , KEEGAN on security. While patient's blood pressure had improved with systolic in 130s , her systolic pressure today was in the 190s. Patient's hypertension is secondary to worsening kidney function. Renal ultrasound did not show any evidence of renal artery stenosis. Plasma metanephrines are wnL. Patients BP today remains 190 systolic even on the regimen below. Patient cannot use anita/arb due to KEEGAN. Will discuss further with nephrology for different options. Patient's blood pressure medication regimen includes: Amlodipine 10 mg at night Clonidine 0.2 mg by mouth 3 times a day Hydralazine 50 mg by mouth 4 times a day Isordil 30 mg by mouth 3 times a day Hydralazine 10 mg IV push every 4H when necessary We will continue to monitor her blood pressure in both arms. (6) Vitamin D deficiency Current Visit: Yes Status: Acute Assessment and plan: Patient's vitamin D level at 15. This may be secondary to decreased intake in diet, or metabolic phenomenon including intrinsic renal disease. Patient also has hyperparathyroidism. This may due to intrinsic renal disease and inability for the kidneys to produce vitamin D. Patient will get 50,000 units of ergocalciferol every week for the next 8 weeks. (7) Insulin dependent diabetes mellitus Current Visit: Yes Status: Chronic Assessment and plan: Patient's blood sugar improved. Her hemoglobin A1c 6.3. Continue basal insulin of 28 units Levemir. Continue diabetic diet. Patients blood sugars are improving. (8) DVT prophylaxis Current Visit: No Status: Acute Assessment and plan: Continue Lovenox (9) Anemia Current Visit: No Status: Chronic Assessment and plan: Most likely related to chronic renal disease/chronic disease. Hgb improved today. Patient has a microcytic hyperchromic anemia. She is iron deficient. Ferritin level is high 550. Patient has good iron stores. Folate level is 5.8. Vitamin B12 is 491. Replacing folic acid and vitamin B-12. Will order peripheral blood smear. Qualifiers: Anemia type: other cause Other causes of anemia: chronic disease, kidney Qualified Code(s): N18.9 - Chronic kidney disease, unspecified; D63.1 - Anemia in chronic kidney disease - Subjective Interval history: 60-year-old female admitted for acute hypertensive emergency and acute diastolic heart failure. Patient states she is feeling better today. Her blood pressure continues to be elevated at 190 systolic like yesterday even though patient's on 4 different blood pressure medications. She denies any chest pain, shortness of breath, abdominal pain, nausea, vomiting. - Constitutional Vitals: Temp Pulse Resp BP Pulse Ox 97.9 F 70 16 197/94 94 L 09/08/16 07:00 09/08/16 07:00 09/08/16 07:00 09/08/16 07:00 09/08/16 07:00 General appearance: Present: A&O X 3, answers questions appropriately - Head Head exam: Present: atraumatic, normocephalic - Eye Eye exam: Present: PERRL, conjuntiva pink, sclera anicteric Pupils: Present: PERRL - Neck Neck exam general surgery: Present: supple, trachea midline. Absent: lymphadenopathy - Respiratory Respiratory exam: Present: CTAB. Absent: accessory muscle use, rales, rhonchi, wheezes - Cardiovascular Cardiovascular exam: Present: RRR, +S1, +S2. Absent: diastolic murmur, gallop, rubs, systolic murmur Additional comments: Systolic murmur 3/4 right 2nd intercostal space. - GI/Abdominal GI/Abdominal exam: Present: normal bowel sounds, soft, no peritoneal signs. Absent: distended, tenderness - Extremities Exam Extremities exam: Present: warm, radial pulses palpable and symetrical. Absent : calf tenderness, cyanotic, pedal edema - Neurological Exam Neurological exam: Present: CN II-XII intact, oriented X3, no focal deficits. Absent: pronater drift, facial droop, speech deficit - Skin Skin exam: Present: dry, intact Internal Medicine: Result - Labs CBC & Chem 7: 09/08/16 04:55 09/08/16 04:55 Labs: Short CBC 09/08/16 Range/Units 04:55 WBC 10.5 (4.3-11.1) K/mcL Hgb 10.1 L (11.5-15.4) g/dL Hct 29.1 L (35.3-44.9) % Plt Count 279 (140-400) K/mcL Neutrophils # 9.0 H (1.6-8.9) K/mcL BMP 09/08/16 04:55 Sodium 135 L Potassium 4.3 Chloride 102 Carbon Dioxide 24 BUN 72 H Creatinine 1.87 H Glucose 296 H Calcium 8.3 L - ABG Interpretation ABG results: ABG ABG pH 7.41 pH Units (7.32-7.45) 09/03/16 18:35 ABG pCO2 39 mmHg (35-45) 09/03/16 18:35 ABG pO2 84 mmHg (85-104) L 09/03/16 18:35 ABG O2 Saturation 96 % (95-98) 09/03/16 18:35 PT/INR, D-dimer PT 13.1 Seconds (9.4-12.1) H 09/04/16 10:44 Consult Discharge Plan - Plan Referrals: Tiffani Christensen DO [Primary Care Provider] - Massimo Freed [facility] [Advanced Practice Nurse] - 09/16/16 10:30 am <Louie Mcdowell - Last Filed: 09/08/16 19:17> Date of Encounter: 09/08/16 - Assessment and plan (1) Acute respiratory failure Current Visit: Yes Status: Resolved Qualifiers: Respiratory failure complication: hypoxia Qualified Code(s): J96.01 - Acute respiratory failure with hypoxia (2) Hypertensive emergency Current Visit: Yes Status: Acute (3) Acute diastolic (congestive) heart failure Current Visit: Yes Status: Acute (4) Acute worsening of stage 3 chronic kidney disease Current Visit: Yes Status: Acute (5) COPD exacerbation Current Visit: Yes Status: Ruled-out (6) Insulin dependent diabetes mellitus Current Visit: Yes Status: Chronic (7) Anemia Current Visit: No Status: Chronic Qualifiers: Anemia type: other cause Other causes of anemia: chronic disease, kidney Qualified Code(s): N18.9 - Chronic kidney disease, unspecified; D63.1 - Anemia in chronic kidney disease (8) Hyperlipidemia Current Visit: No Status: Chronic Qualifiers: Hyperlipidemia type: mixed hyperlipidemia Qualified Code(s): E78.2 - Mixed hyperlipidemia (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 - Constitutional Vitals: Temp Pulse Resp BP Pulse Ox 98.0 F 69 16 137/67 93 L 09/08/16 16:53 09/08/16 16:53 09/08/16 16:53 09/08/16 16:53 09/08/16 16:53 Internal Medicine: Result - Labs CBC & Chem 7: 09/08/16 04:55 09/08/16 04:55 Labs: Short CBC 09/08/16 Range/Units 04:55 WBC 10.5 (4.3-11.1) K/mcL Hgb 10.1 L (11.5-15.4) g/dL Hct 29.1 L (35.3-44.9) % Plt Count 279 (140-400) K/mcL Neutrophils # 9.0 H (1.6-8.9) K/mcL BMP 09/08/16 04:55 Sodium 135 L Potassium 4.3 Chloride 102 Carbon Dioxide 24 BUN 72 H Creatinine 1.87 H Glucose 296 H Calcium 8.3 L - ABG Interpretation ABG results: ABG ABG pH 7.41 pH Units (7.32-7.45) 09/03/16 18:35 ABG pCO2 39 mmHg (35-45) 09/03/16 18:35 ABG pO2 84 mmHg (85-104) L 09/03/16 18:35 ABG O2 Saturation 96 % (95-98) 09/03/16 18:35 PT/INR, D-dimer PT 13.1 Seconds (9.4-12.1) H 09/04/16 10:44 - Attending Attestation I examined this patient and my medical decision-making was reviewed with the Resident Physician on 09/08/16. I agree with the documented findings, disposition and treatment plan as described except to the extent set forth below. Ms. [place] is currently admitted for hypertensive emergency and KEEGAN. She is moderate to high risk due to potential for worsening renal issues and complications of BP. Ms. [place] is doing somewhat better today. No CP. Breathing OK. No abd symptoms. BP has been up and down and is managed by renal service. Exam Alert. Comfortable Heart reg No wheeze I/P 1. HTN emergency - per renal 2. KEEGAN - improving Further diagnoses and plan as above.
[2016-09-08] MEDS: Furosemide 40 MG/4 ML VIAL IVP SCH ×2 (09:03→22:06)
[2016-09-08] MEDS: Insulin LISPRO 300 UNITS/3 ML VIAL SQ SCH ×5 (09:03→21:53)
[2016-09-08] MEDS: Gabapentin 300 MG CAPSULE PO SCH ×4 (09:04→23:03)
[2016-09-08] MEDS: Folic Acid 1 MG TABLET PO SCH (09:04)
[2016-09-08] MEDS: Azithromycin 250 MG TABLET PO SCH (09:04)
[2016-09-08] MEDS: cloNIDine HCl 0.1 MG TABLET PO SCH ×3 (09:04→22:05)
[2016-09-08] MEDS: hydrALAZINE 25 MG TABLET PO SCH ×4 (09:05→22:06)
[2016-09-08] MEDS: Cyanocobalamin (B-12) 1,000 MCG TABLET PO SCH (09:05)
[2016-09-08] MEDS: *HR* Ticagrelor 90 MG TABLET PO SCH ×2 (09:05→21:55)
[2016-09-08] MEDS: Aspirin Enteric Coated 81 MG Tablet PO SCH (09:05)
[2016-09-08] MEDS: predniSONE 20 MG TABLET PO SCH (09:05)
[2016-09-08] MEDS: Budesonide/Formoterol 160/4.5 MDI IH SCH ×2 (10:09→22:18)
--- NOTE | 2016-09-08 10:22 | Nephrology Progress Note ---
Date of Encounter: 09/08/16 Time of Encounter: 10:19 - Assessment and Plan (1) Acute worsening of stage 3 chronic kidney disease Current Visit: Yes Status: Acute Patient has KEEGAN on CKDIII. The patient has unknown etiology of CKDIII, could be secondary to DM or HTN. There is concern for intrinsic renal disease with her rise in Creatinine on 09/07 and significant proteinuria in the setting of uncontrolled severe hypertension. Workup for intrinsic renal disease pending. Unable to perform renal biopsy at this time due to need for continued anticoagulation/antiplatelet therapy until 07/04 per cardiology. Cr decreased to 1.87, seems to be improving with prednisone. Recommendations: -Continue prednisone therapy -Continue to avoid nephrotoxins, renal dosing for medications. (2) Hypertensive emergency Current Visit: Yes Status: Acute Uncontrolled HTN. Patient continues to have elevated BP today 190's systolic. Goal is 130/80 to be achieved slowly over days to avoid overcorrection. Metanephrine results negative. Renal US shows no signs of renal artery stenosis. Plan: -Will start minoxidil 5mg daily, first dose now. -If her blood pressure is still not controlled this afternoon, will need to consider starting her on a nicardipine drip to control her pressures. (3) Insulin dependent diabetes mellitus Current Visit: Yes Status: Chronic Management per primary care team (4) Anemia Current Visit: No Status: Chronic Continue to monitor for active bleeding. Iron saturation is low, continue oral replacement. (5) Peripheral neuropathy Current Visit: No Status: Chronic Qualifiers: Peripheral neuropathy type: polyneuropathy associated with underlying disease Qualified Code(s): G63 - Polyneuropathy in diseases classified elsewhere (6) Acute respiratory failure Current Visit: Yes Status: Resolved Wean supplemental O2 to keep Oxygen saturation >92% Qualifiers: Respiratory failure complication: hypoxia Qualified Code(s): J96.01 - Acute respiratory failure with hypoxia (7) Vitamin D deficiency Current Visit: Yes Status: Acute Continue vitamin D replacement therapy Subjective Principal diagnosis: Dyspnea, HTN emergency Interval history: Ms. [place] states that she is feeling well today. She denies CP, SOB, abdominal pain, dysuria, hematuria. She has concerns about her blood pressure elevation. Objective - Vital Signs Vital signs: Vital Signs Temp Pulse Resp BP Pulse Ox 09/08/16 10:10 94 L 09/08/16 07:00 97.9 F 70 16 197/94 94 L 09/08/16 05:37 97.8 F 66 16 181/93 95 09/08/16 03:35 16 09/08/16 01:50 97.4 F L 65 16 173/87 96 09/07/16 20:34 97.5 F L 69 18 159/63 96 09/07/16 20:17 16 98 09/07/16 16:02 97.3 F L 69 16 134/67 95 09/07/16 15:39 16 134/67 93 L 09/07/16 11:47 98.1 F 74 18 179/86 94 L Intake and Output 09/07/16 09/08/16 09/08/16 23:59 07:59 15:59 Intake Total 240 / 240 0 / 0 240 / 240 Output Total 1900 / 1900 Balance 240 / 240 -1900 / -1900 240 / 240 Intake: Oral 240 / 240 0 / 0 240 / 240 Output: Catheter 1900 / 1900 Other: Meal Dinner Breakfast Percent of Meal Consumed 90% 5% # Voids 0 0 Weight 108.5 kg Blood Glucose* 228 258 Patient Weight 09/08/16 23:59 Weight 108.5 kg - General Appearance General appearance: Present: well-developed, well-nourished EENT: Present: ATNC Neck: Present: no JVD, supple Respiratory: Present: clear Cardiology: Present: edema (b/l UE and LE), regular rate, regular rhythm Additional Comments: systolic murmur Gastrointestinal: Present: normoactive bowel sounds, no tenderness, no guarding Integumentary: Present: no rash, warm and dry Neurologic: Present: no focal deficit, alert and oriented x3 Musculoskeletal: Present: no erythema, no cyanosis Psychiatric: Present: mood/affect appropriate, cooperative - Lab 09/08/16 04:55 09/08/16 04:55 Most recent lab results ABG pH 7.41 pH Units (7.32-7.45) 09/03/16 18:35 ABG pCO2 39 mmHg (35-45) 09/03/16 18:35 ABG pO2 84 mmHg (85-104) L 09/03/16 18:35 ABG HCO3 24.7 mEQ/L (21-27) 09/03/16 18:35 ABG O2 Saturation 96 % (95-98) 09/03/16 18:35 Calcium 8.3 mg/dL (8.6-10.8) L 09/08/16 04:55 Phosphorus 4.2 mg/dL (2.3-4.7) 09/07/16 05:19 Magnesium 1.7 mg/dL (1.6-2.6) 09/07/16 05:19 Urine Creatinine 20 mg/dL 09/04/16 12:50 Urine Sodium 62.0 mEq/L 09/03/16 10:10 Urine Total Protein 116 mg/dL (1-14) H 09/04/16 12:50 Consult Discharge Plan - Plan Referrals: Tiffani Christensen DO [Primary Care Provider] - LourdesMassimo CNP [Advanced Practice Nurse] - 09/16/16 10:30 am
[2016-09-08] MEDS ORDERED: *HR* HYDROcodone/Acet 5/325 mg TABLET PO PRN (14:31)
[2016-09-08] MEDS: *HR* HYDROcodone/Acet 5/325 mg TABLET PO PRN (14:55)
[2016-09-08] MEDS: Insulin DETEMIR 100 UNIT/ML X5UNITS SQ SCH (21:54)
[2016-09-08] MEDS: amLODIPine 5 MG TABLET PO SCH (22:06)
[2016-09-09] MEDS: Ipratropium/Albuterol Neb 3 ML IH SCH ×4 (04:22→21:53)
[2016-09-09] MEDS: *HR* Enoxaparin 30 MG/0.3 ML SYRINGE SQ SCH (05:23)
[2016-09-09 05:41] LABS: Basophils % 0.1 %; Hematocrit 29.1 % (35.3-44.9); Hemoglobin 9.9 g/dL (11.5-15.4); Immature Granulocytes % 2.3 % (0-4); Lymphocytes # 1.7 K/mcL (0.6-4.6); Lymphocytes % 15.1 %; Mean Corpuscular Hemoglobin 24.4 pg (28.0-33.3); Mean Corpuscular Volume 71.9 fL (83.0-100.0); Mean Platelet Volume 10.6 fL (9.4-12.4); Monocytes # 1.2 K/mcL (0.0-1.3); Monocytes % 10.6 %; Neutrophils # 8.1 K/mcL (1.6-8.9); Platelet Count 283 K/mcL (140-400); Red Blood Count 4.05 M/mcL (3.82-4.97); Red Cell Distribution Width 16.3 % (11.5-14.5); Segmented Neutrophils % 71.9 %
[2016-09-09 06:02] LABS: Calcium 8.5 mg/dL (8.6-10.8); Potassium 4.4 mEq/L (3.5-4.5)
[2016-09-09 06:35] LABS: Anisocytosis 1+ (Not Present); Platelet Estimate Normal (Normal); Reactive Lymphocytes Present (Not Present)
[2016-09-09 06:36] LABS: Microcytosis Present (Not Present); Poikilocytosis 1+ (Not Present); Target Cells 1+ (Not Present)
[2016-09-09] MEDS: Insulin LISPRO 300 UNITS/3 ML VIAL SQ SCH ×7 (08:52→20:40)
[2016-09-09] MEDS: Cyanocobalamin (B-12) 1,000 MCG TABLET PO SCH (08:53)
[2016-09-09] MEDS: *HR* Ticagrelor 90 MG TABLET PO SCH ×2 (08:53→20:32)
[2016-09-09] MEDS: Folic Acid 1 MG TABLET PO SCH (08:53)
[2016-09-09] MEDS: Aspirin Enteric Coated 81 MG Tablet PO SCH (08:54)
[2016-09-09] MEDS: predniSONE 20 MG TABLET PO SCH (08:54)
[2016-09-09] MEDS: Gabapentin 300 MG CAPSULE PO SCH ×3 (08:55→20:32)
[2016-09-09] MEDS: *HR* HYDROcodone/Acet 5/325 mg TABLET PO PRN (08:59)
--- NOTE | 2016-09-09 09:28 | Nephrology Progress Note ---
Date of Encounter: 09/09/16 Time of Encounter: 09:26 - Assessment and Plan (1) Acute worsening of stage 3 chronic kidney disease Current Visit: Yes Status: Acute Patient has KEEGAN on CKDIII. The patient has unknown etiology of CKDIII, could be secondary to DM or HTN. There is concern for intrinsic renal disease with her rise in Creatinine on 09/07 and significant proteinuria in the setting of uncontrolled severe hypertension. Workup for intrinsic renal disease pending. Unable to perform renal biopsy at this time due to need for continued anticoagulation/antiplatelet therapy until 07/04 per cardiology. Cr decreased to 1.87 on 09/08. Cr 1.94 09/09 with slight increase from yesterday but overall it seems to be improving with prednisone. Urine normetanephrine/creatinin ration 948 (high). May be physiologic due to htn. Will recheck once BP controlled as outpatient. Recommendations: -Continue prednisone therapy -Continue to avoid nephrotoxins, renal dosing for medications. (2) Hypertensive emergency Current Visit: Yes Status: Acute Uncontrolled HTN. Patient continues to have elevated BP today 190's systolic. Goal is 130-150 systolic. Metanephrine results negative. Renal US shows no signs of renal artery stenosis. After administration of minoxidil yesterday, afternoon BP in 130's-140's systolic. PM dose of hydralazine, lasix, clonidine, isordil held due to systolic BP <150. Overnight pressures 150-160 systolic on left arm. Minoxidil may be the BP med of choice for the patient. Will monitor response today and add other meds as appropriate for control. Plan: -Continue minoxidil 5mg daily -Hold hydralazine, clonidine, isordil this morning. -Wean off clonidine: 0.1 BID x1day, 0.1 daily x2 days -Add 6.25 coreg tonight and then BID starting tomorrow -Continue to monitor pressure with goal systolic 130-150 -If BP stable to goal overnight ok to consider discharge tomorrow. (3) Insulin dependent diabetes mellitus Current Visit: Yes Status: Chronic Management per primary care team (4) Anemia Current Visit: No Status: Chronic Continue to monitor for active bleeding. Iron saturation is low, continue oral replacement. Qualifiers: Anemia type: other cause Other causes of anemia: chronic disease, kidney Qualified Code(s): N18.9 - Chronic kidney disease, unspecified; D63.1 - Anemia in chronic kidney disease (5) Peripheral neuropathy Current Visit: No Status: Chronic Qualifiers: Peripheral neuropathy type: polyneuropathy associated with underlying disease Qualified Code(s): G63 - Polyneuropathy in diseases classified elsewhere (6) Acute respiratory failure Current Visit: Yes Status: Resolved Wean supplemental O2 to keep Oxygen saturation >92% Qualifiers: Respiratory failure complication: hypoxia Qualified Code(s): J96.01 - Acute respiratory failure with hypoxia (7) Vitamin D deficiency Current Visit: Yes Status: Acute Continue vitamin D replacement therapy Subjective Principal diagnosis: Dyspnea, HTN emergency Interval history: Ms. [place] states that she is feeling well today. She admits to mild SOB. Goins Catheter in place with clear urine. She denies CP, SOB, dizziness, vision changes, abdominal pain, dysuria. She states that she plans to ambulate today and anticipates going home. Objective - Vital Signs Vital signs: Vital Signs Temp Pulse Resp BP Pulse Ox 09/09/16 08:14 99.5 F 82 16 160/82 95 09/09/16 05:17 98.6 F 70 17 155/79 94 L 09/09/16 04:22 18 94 L 09/09/16 03:00 69 153/78 09/09/16 02:00 68 150/75 96 09/09/16 01:00 67 142/73 09/09/16 00:47 69 138/71 09/08/16 23:12 97.2 F L 69 16 140/70 94 L 09/08/16 23:09 94 L 09/08/16 22:25 68 148/78 09/08/16 22:18 16 93 L 09/08/16 20:03 96.9 F L 69 16 133/74 94 L 09/08/16 19:36 98.6 F 70 18 134/70 95 09/08/16 16:53 98.0 F 69 16 137/67 93 L 09/08/16 15:18 16 96 09/08/16 11:00 65 15 152/85 94 L 09/08/16 10:10 94 L 09/08/16 10:09 18 96 Intake and Output 09/08/16 09/09/16 09/09/16 23:59 07:59 15:59 Intake Total 540 / 540 Output Total 600 / 600 450 / 450 Balance -60 / -60 -450 / -450 Intake: Oral 540 / 540 Output: Catheter 600 / 600 450 / 450 Other: Meal Dinner Percent of Meal Consumed 100% Weight 110.1 kg Blood Glucose* 330 211 Patient Weight 09/09/16 23:59 Weight 110.1 kg - General Appearance General appearance: Present: well-developed, well-nourished, appears started age , obese EENT: Present: ATNC, mucous membranes moist Neck: Present: no JVD, no thyromegaly, supple Respiratory: Present: wheezing Cardiology: Present: no rub, no gallops, edema (b/l LE/UE), regular rate, regular rhythm, normal S1, normal S2 Additional Comments: systolic murmur Gastrointestinal: Present: normoactive bowel sounds, no tenderness, no guarding Integumentary: Present: no rash, warm and dry Neurologic: Present: no focal deficit, alert and oriented x3 Musculoskeletal: Present: no erythema, no cyanosis Psychiatric: Present: mood/affect appropriate, cooperative - Lab 09/09/16 05:15 09/09/16 05:15 Most recent lab results ABG pH 7.41 pH Units (7.32-7.45) 09/03/16 18:35 ABG pCO2 39 mmHg (35-45) 09/03/16 18:35 ABG pO2 84 mmHg (85-104) L 09/03/16 18:35 ABG HCO3 24.7 mEQ/L (21-27) 09/03/16 18:35 ABG O2 Saturation 96 % (95-98) 09/03/16 18:35 Calcium 8.5 mg/dL (8.6-10.8) L 09/09/16 05:15 Phosphorus 4.2 mg/dL (2.3-4.7) 09/07/16 05:19 Magnesium 1.7 mg/dL (1.6-2.6) 09/07/16 05:19 Urine Creatinine 20 mg/dL 09/04/16 12:50 Urine Sodium 62.0 mEq/L 09/03/16 10:10 Urine Total Protein 116 mg/dL (1-14) H 09/04/16 12:50 Consult Discharge Plan - Plan Referrals: Tiffani Christensen DO [Primary Care Provider] - 09/17/16 4:00 pm Massimo Freed CNP [Advanced Practice Nurse] - 09/16/16 10:30 am
--- NOTE | 2016-09-09 10:06 | Internal Med Progress Note ---
<Chris Mathew - Last Filed: 09/09/16 10:03> Date of Encounter: 09/09/16 Time of Encounter: 10:03 - Assessment and plan (1) Hypertensive emergency Current Visit: Yes Status: Acute Assessment and plan: Patient presented with a blood pressure of greater than 200 and was started on a Cardene drip. She had an organ damage with elevated troponin, pulmonary edema , KEEGAN on security. Patient's blood pressure is difficult to regulate even when being on 4 different medications. Patient's hypertension is secondary to worsening kidney function. Renal ultrasound did not show any evidence of renal artery stenosis. Plasma metanephrines are wnL. Patients BP today improved to systolic 150s. Patient cannot use anita/arb due to KEEGAN. Last night nephrology added minoxidil to the regimen. And held all other blood pressure medications. Patient's blood pressure medication regimen includes: Amlodipine 10 mg at night Clonidine 0.2 mg by mouth 3 times a day Hydralazine 50 mg by mouth 4 times a day Isordil 30 mg by mouth 3 times a day Hydralazine 10 mg IV push every 4H when necessary We will continue to monitor her blood pressure in both arms. Nephrology plans to modify her blood pressure medications and monitor her pressure overnight to find best regimen. (2) Acute respiratory failure Current Visit: Yes Status: Resolved Assessment and plan: Resolved. Patients acute respiratory failure was due to acute on chronic diastolic chf 2nd to hypertensive emergency. She was on high flow O2 but has been weaned to room air. Patient's oxygen saturations are above 90%. We will continue to monitor her respiratory status. Patient had one episode of O2 desaturaion two nights ago. She may need outpatient sleep study to be evaluated for sleep apnea. RF: obesity, large neck size, hypertension, Qualifiers: Respiratory failure complication: hypoxia Qualified Code(s): J96.01 - Acute respiratory failure with hypoxia (3) Acute diastolic (congestive) heart failure Current Visit: Yes Status: Acute Assessment and plan: Patient's dyspnea has improved considerably from admission. Cumulatively she has intake output balance of -7000 mL. Patient is being diuresed with IV lasix. Per phsyical exam patient has absent pedal edema and absent rails. Plan to transition to by mouth Lasix. Her bicarbonate and potassium remain stable. Patient's creatinine is stable. (4) Acute worsening of stage 3 chronic kidney disease Current Visit: Yes Status: Acute Assessment and plan: Per nephrology. Patient has worsening renal function since admission. Worsening kidney disease may be secondary to hypertension and/or diabetes. Patient had significant proteinuria with protein to creatinine ratio 7. Renal ultrasound shows hemodynamically stable kidney. Plan was to obtain a renal biopsy however patient just underwent PCI needs to be on [place] to until August 2016. Continue to avoid nephrotoxic drugs. Improvement of hypertension with addition of minoxidil. Improved kidney function continue prednisone. (5) COPD exacerbation Current Visit: Yes Status: Ruled-out Assessment and plan: Patients acute resp failure more likely end to acute CHF exacerbation as diureses has helped improve patients respiratory status. We will continue her Symbicort. Patient has finished her 5 day course of Zithromax. (6) Vitamin D deficiency Current Visit: Yes Status: Acute Assessment and plan: Patient's vitamin D level at 15. This may be secondary to decreased intake in diet, or metabolic phenomenon including intrinsic renal disease. Patient also has hyperparathyroidism. This may due to intrinsic renal disease and inability for the kidneys to produce vitamin D. Patient will get 50,000 units of ergocalciferol every week for the next 8 weeks. (7) Insulin dependent diabetes mellitus Current Visit: Yes Status: Chronic Assessment and plan: Patient's blood sugar improved. Her hemoglobin A1c 6.3. Continue basal insulin of 40 units Levemir and 8 units lispro preprandial. Continue diabetic diet. Patients blood sugars are improving. (8) DVT prophylaxis Current Visit: No Status: Acute Assessment and plan: Continue Lovenox (9) Anemia Current Visit: No Status: Chronic Assessment and plan: Most likely related to chronic renal disease/chronic disease. Hgb stable at 10. Patient has a microcytic hyperchromic anemia. She is iron deficient. Ferritin level is high 550. Patient has good iron stores. Folate level is 5.8. Vitamin B12 is 491. Replacing folic acid and vitamin B-12 and iron. Blood smear indicates patient may have a reactive process. Qualifiers: Anemia type: other cause Other causes of anemia: chronic disease, kidney Qualified Code(s): N18.9 - Chronic kidney disease, unspecified; D63.1 - Anemia in chronic kidney disease - Subjective Interval history: 60-year-old female admitted for acute hypertensive emergency and acute diastolic heart failure. Patient states she is feeling better today. Her blood pressure is better controlled.. Patient was started on Minoxidil. All other BP meds were held. She denies sob, cp, palpitations, cough, dysuira. - Constitutional Vitals: Temp Pulse Resp BP Pulse Ox 99.5 F 82 16 160/82 95 09/09/16 08:14 09/09/16 08:14 09/09/16 08:14 09/09/16 08:14 09/09/16 08:14 General appearance: Present: A&O X 3, answers questions appropriately - Head Head exam: Present: atraumatic, normocephalic - Eye Eye exam: Present: PERRL, conjuntiva pink, sclera anicteric - Neck Neck exam general surgery: Present: supple, trachea midline. Absent: lymphadenopathy - Respiratory Respiratory exam: Present: CTAB. Absent: accessory muscle use, rales, rhonchi, wheezes - Cardiovascular Cardiovascular exam: Present: RRR, +S1, +S2, systolic murmur (2nd intercostal space: aortic stenosis. 3/4). Absent: diastolic murmur, gallop, rubs - GI/Abdominal GI/Abdominal exam: Present: normal bowel sounds, soft, no peritoneal signs. Absent: distended, tenderness - Extremities Exam Extremities exam: Present: warm, radial pulses palpable and symetrical. Absent : calf tenderness, cyanotic, pedal edema - Neurological Exam Neurological exam: Present: CN II-XII intact, oriented X3, no focal deficits. Absent: pronater drift, facial droop, speech deficit - Skin Skin exam: Present: dry, intact Internal Medicine: Result - Labs CBC & Chem 7: 09/09/16 05:15 09/09/16 05:15 Labs: Short CBC 09/08/16 09/09/16 Range/Units 04:55 05:15 WBC 10.5 11.3 H (4.3-11.1) K/mcL Hgb 10.1 L 9.9 L (11.5-15.4) g/dL Hct 29.1 L 29.1 L (35.3-44.9) % Plt Count 279 283 (140-400) K/mcL Neutrophils # 9.0 H 8.1 (1.6-8.9) K/mcL BMP 09/09/16 05:15 Sodium 136 Potassium 4.4 Chloride 102 Carbon Dioxide 25 BUN 86 H Creatinine 1.94 H Glucose 227 H Calcium 8.5 L - ABG Interpretation ABG results: ABG ABG pH 7.41 pH Units (7.32-7.45) 09/03/16 18:35 ABG pCO2 39 mmHg (35-45) 09/03/16 18:35 ABG pO2 84 mmHg (85-104) L 09/03/16 18:35 ABG O2 Saturation 96 % (95-98) 09/03/16 18:35 PT/INR, D-dimer PT 13.1 Seconds (9.4-12.1) H 09/04/16 10:44 Consult Discharge Plan - Plan Referrals: Tiffani Christensen DO [Primary Care Provider] - 09/17/16 4:00 pm Massimo Freed CNP [Advanced Practice Nurse] - 09/16/16 10:30 am <Louie Mcdowell - Last Filed: 09/09/16 14:36> Date of Encounter: 09/09/16 - Assessment and plan (1) Acute respiratory failure Current Visit: Yes Status: Resolved Qualifiers: Respiratory failure complication: hypoxia Qualified Code(s): J96.01 - Acute respiratory failure with hypoxia (2) Hypertensive emergency Current Visit: Yes Status: Acute (3) Acute diastolic (congestive) heart failure Current Visit: Yes Status: Acute (4) Acute worsening of stage 3 chronic kidney disease Current Visit: Yes Status: Acute (5) COPD exacerbation Current Visit: Yes Status: Ruled-out (6) Diabetes mellitus Current Visit: Yes Status: Chronic Qualifiers: Diabetes mellitus type: type 2 Diabetes mellitus complication status: with neurologic complications Diabetes mellitus complication detail: with polyneuropathy Diabetes mellitus termite treater helper insulin use: with mcc use Qualified Code(s): E11.42 - Type 2 diabetes mellitus with diabetic polyneuropathy; Z79.4 - correction (current) use of insulin (7) Anemia Current Visit: No Status: Chronic Qualifiers: Anemia type: other cause Other causes of anemia: chronic disease, kidney Qualified Code(s): N18.9 - Chronic kidney disease, unspecified; D63.1 - Anemia in chronic kidney disease (8) Hyperlipidemia Current Visit: No Status: Chronic Qualifiers: Hyperlipidemia type: mixed hyperlipidemia Qualified Code(s): E78.2 - Mixed hyperlipidemia (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 - Constitutional Vitals: Temp Pulse Resp BP Pulse Ox 98.5 F 73 16 158/80 95 09/09/16 11:33 09/09/16 11:33 09/09/16 11:33 09/09/16 11:33 09/09/16 11:33 Internal Medicine: Result - Labs CBC & Chem 7: 09/09/16 05:15 09/09/16 05:15 Labs: Short CBC 09/09/16 Range/Units 05:15 WBC 11.3 H (4.3-11.1) K/mcL Hgb 9.9 L (11.5-15.4) g/dL Hct 29.1 L (35.3-44.9) % Plt Count 283 (140-400) K/mcL Neutrophils # 8.1 (1.6-8.9) K/mcL BMP 09/09/16 05:15 Sodium 136 Potassium 4.4 Chloride 102 Carbon Dioxide 25 BUN 86 H Creatinine 1.94 H Glucose 227 H Calcium 8.5 L - ABG Interpretation ABG results: ABG ABG pH 7.41 pH Units (7.32-7.45) 09/03/16 18:35 ABG pCO2 39 mmHg (35-45) 09/03/16 18:35 ABG pO2 84 mmHg (85-104) L 09/03/16 18:35 ABG O2 Saturation 96 % (95-98) 09/03/16 18:35 PT/INR, D-dimer PT 13.1 Seconds (9.4-12.1) H 09/04/16 10:44 - Attending Attestation I examined this patient and my medical decision-making was reviewed with the Resident Physician on 09/09/16. I agree with the documented findings, disposition and treatment plan as described except to the extent set forth below. Ms. [place] is currently admitted for acute hypertensive emergency and hypoxic respiratory failure. She remains moderate risk due to potential for further blood pressure issues. Ms. [place] is continuing to do a little better. She is able to get up and move around. No dyspnea. Has not required oxygen. Renal function stable. No fever or chills. BP has been improving with use of Minoxidil. Exam Alert. Comfortable Heart reg No wheeze I/P 1. Hypoxia - improved. Check nocturnal pulse ox 2. Diastolic CHF 3. HTN emergency Further diagnoses and plan as above.
[2016-09-09] MEDS: Budesonide/Formoterol 160/4.5 MDI IH SCH ×2 (10:47→21:53)
[2016-09-09] MEDS: Furosemide 40 MG/4 ML VIAL IVP SCH (11:32)
[2016-09-09] MEDS: hydrALAZINE 25 MG TABLET PO SCH (11:32)
[2016-09-09] MEDS: cloNIDine HCl 0.1 MG TABLET PO SCH (11:32)
[2016-09-09] MEDS ORDERED: cloNIDine HCl 0.1 MG TABLET PO ONE ×2 (11:45→23:00)
[2016-09-09] MEDS: *HR* Morphine 2 MG/ML SYRINGE IVP PRN (19:30)
[2016-09-09] MEDS: Insulin DETEMIR 100 UNIT/ML X5UNITS SQ SCH (20:32)
[2016-09-09] MEDS: amLODIPine 5 MG TABLET PO SCH (22:36)
[2016-09-10 05:21] LABS: Basophils % 0.2 %; Hematocrit 30.7 % (35.3-44.9); Hemoglobin 10.4 g/dL (11.5-15.4); Immature Granulocytes % 2.3 % (0-4); Immature Platelets 6.7 % (1.1-6.1); Lymphocytes # 1.2 K/mcL (0.6-4.6); Lymphocytes % 9.6 %; Mean Corpuscular HGB Conc 33.9 g/dL (31.6-35.5); Mean Corpuscular Hemoglobin 24.3 pg (28.0-33.3); Mean Corpuscular Volume 71.7 fL (83.0-100.0); Mean Platelet Volume 11.8 fL (9.4-12.4); Monocytes # 0.9 K/mcL (0.0-1.3); Monocytes % 6.7 %; Neutrophils # 10.5 K/mcL (1.6-8.9); Nucleated Red Blood Cells 0.2 /100 WBC (0); Platelet Count 294 K/mcL (140-400); Red Blood Count 4.28 M/mcL (3.82-4.97); Red Cell Distribution Width 15.9 % (11.5-14.5); Segmented Neutrophils % 81.2 %
[2016-09-10] MEDS: Ipratropium/Albuterol Neb 3 ML IH SCH ×4 (05:28→22:47)
[2016-09-10] MEDS: *HR* Enoxaparin 30 MG/0.3 ML SYRINGE SQ SCH (05:57)
[2016-09-10 06:15] LABS: Calcium 8.7 mg/dL (8.6-10.8); Potassium 4.4 mEq/L (3.5-4.5)
[2016-09-10] MEDS: Aspirin Enteric Coated 81 MG Tablet PO SCH (08:23)
[2016-09-10] MEDS: cloNIDine HCl 0.1 MG TABLET PO SCH (08:24)
[2016-09-10] MEDS: predniSONE 20 MG TABLET PO SCH (08:24)
[2016-09-10] MEDS: Cyanocobalamin (B-12) 1,000 MCG TABLET PO SCH (08:24)
[2016-09-10] MEDS: *HR* Ticagrelor 90 MG TABLET PO SCH ×2 (08:24→20:18)
[2016-09-10] MEDS: Insulin LISPRO 300 UNITS/3 ML VIAL SQ SCH ×7 (08:25→20:20)
[2016-09-10] MEDS: Gabapentin 300 MG CAPSULE PO SCH ×3 (08:25→20:18)
[2016-09-10] MEDS: Folic Acid 1 MG TABLET PO SCH (08:27)
--- NOTE | 2016-09-10 09:12 | Nephrology Progress Note ---
Date of Encounter: 09/10/16 Time of Encounter: 09:07 - Assessment and Plan (1) Acute worsening of stage 3 chronic kidney disease Current Visit: Yes Status: Acute Patient has KEEGAN on CKDIII. The patient has unknown etiology of CKDIII, could be secondary to DM or HTN. There is concern for intrinsic renal disease with her rise in Creatinine on 09/07 and significant proteinuria in the setting of uncontrolled severe hypertension. Workup for intrinsic renal disease pending. Unable to perform renal biopsy at this time due to need for continued anticoagulation/antiplatelet therapy until 07/04 per cardiology. Cr 1.87 on 09/08, 1.94 on 09/09, 2.05 today. This may be her baseline. Will treat with prednisone as if this were FSGS and patient will need intermediate card tender steroids for 2 months as an outpatient. Urine normetanephrine/creatinin ration 948 (high). May be physiologic due to htn. Will recheck once BP controlled as outpatient. Recommendations: -Continue prednisone therapy -discontinue norvasc -Boswell start diovan 80mg daily today -Patient will need her creatinine checked tomorrow, if stable ok to discharge -Will need repeat BMP on wednesday, 09/14 -Will need f/u appointment with Dr. France by the end of next week. -Continue to avoid nephrotoxins, renal dosing for medications. (2) Hypertensive emergency Current Visit: Yes Status: Acute Uncontrolled HTN. Patient continues to have elevated BP today 190's systolic. Goal is 130 systolic. Metanephrine results negative. Renal US shows no signs of renal artery stenosis. BP stable overnight in 150's. Plan: -Continue minoxidil 5mg daily -Discontinue hydralazine, clonidine 0.2, and isordil -Continue to wean off clonidine: 0.1 daily x2 days (09/10 and 09/11) -Continue 6.25mg coreg BID -Start diovan 80mg daily today -Continue to monitor pressure with goal systolic 130 -If BP stable to goal overnight ok to consider discharge tomorrow. (3) Insulin dependent diabetes mellitus Current Visit: Yes Status: Chronic Management per primary care team (4) Anemia Current Visit: No Status: Chronic Continue to monitor for active bleeding. Iron saturation is low, continue oral replacement. Qualifiers: Qualified Code(s): N18.9 - Chronic kidney disease, unspecified; D63.1 - Anemia in chronic kidney disease (5) Peripheral neuropathy Current Visit: No Status: Chronic Qualifiers: Qualified Code(s): G63 - Polyneuropathy in diseases classified elsewhere (6) Acute respiratory failure Current Visit: Yes Status: Resolved Wean supplemental O2 to keep Oxygen saturation >92% Qualifiers: Qualified Code(s): J96.01 - Acute respiratory failure with hypoxia (7) Vitamin D deficiency Current Visit: Yes Status: Acute Continue vitamin D replacement therapy Subjective Principal diagnosis: Dyspnea, HTN emergency Interval history: Ms. France states that she is feeling well today. She denies CP, SOB, dizziness, vision changes, abdominal pain, dysuria. She states that she has been ambulating. Objective - Vital Signs Vital signs: Vital Signs Temp Pulse Resp BP Pulse Ox 09/10/16 07:00 98.1 F 83 16 157/79 96 09/10/16 00:33 98.8 F 75 14 163/76 93 L 09/09/16 23:26 76 155/81 09/09/16 21:53 16 91 L 09/09/16 21:03 98.5 F 79 18 130/64 94 L 09/09/16 15:21 98.9 F 74 16 132/68 93 L 09/09/16 13:00 99 09/09/16 11:33 98.5 F 73 16 158/80 95 09/09/16 10:47 18 94 L 09/09/16 09:15 95 Intake and Output 09/09/16 09/10/16 09/10/16 23:59 07:59 15:59 Other: # Voids 1 Weight 109.9 kg Blood Glucose* 243 202 Patient Weight 09/10/16 23:59 Weight 109.9 kg - General Appearance General appearance: Present: well-developed, well-nourished, appears started age , obese EENT: Present: ATNC, PERRL, mucous membranes moist Neck: Present: no JVD, no thyromegaly, supple Respiratory: Present: clear Cardiology: Present: no rub, no gallops, edema (trace), regular rate, regular rhythm, normal S1, normal S2 Additional Comments: systolic murmur Gastrointestinal: Present: normoactive bowel sounds, no tenderness, no guarding , no masses Integumentary: Present: no rash, warm and dry Neurologic: Present: no focal deficit, alert and oriented x3 Musculoskeletal: Present: no erythema, no cyanosis, no clubbing Psychiatric: Present: mood/affect appropriate, cooperative - Lab 09/10/16 03:02 09/10/16 03:02 Most recent lab results ABG pH 7.41 pH Units (7.32-7.45) 09/03/16 18:35 ABG pCO2 39 mmHg (35-45) 09/03/16 18:35 ABG pO2 84 mmHg (85-104) L 09/03/16 18:35 ABG HCO3 24.7 mEQ/L (21-27) 09/03/16 18:35 ABG O2 Saturation 96 % (95-98) 09/03/16 18:35 Calcium 8.7 mg/dL (8.6-10.8) 09/10/16 03:02 Phosphorus 4.2 mg/dL (2.3-4.7) 09/07/16 05:19 Magnesium 1.7 mg/dL (1.6-2.6) 09/07/16 05:19 Urine Creatinine 20 mg/dL 09/04/16 12:50 Urine Sodium 62.0 mEq/L 09/03/16 10:10 Urine Total Protein 116 mg/dL (1-14) H 09/04/16 12:50 Consult Discharge Plan - Plan Instructions: Heart Failure (DC), Chest Pain (DC), Diabetes Mellitus Type 2 in Adults (DC), Chronic Hypertension (DC), Anemia (GEN) Referrals: Tiffani Christensen DO [Primary Care Provider] - 09/17/16 4:00 pm Massimo Freed CNP [Advanced Practice Nurse] - 09/16/16 10:30 am
[2016-09-10] MEDS: Budesonide/Formoterol 160/4.5 MDI IH SCH ×2 (11:07→22:47)
[2016-09-10] MEDS: Valsartan 80 MG TABLET PO SCH (12:52)
--- NOTE | 2016-09-10 13:09 | Internal Med Progress Note ---
<Chris Mathew - Last Filed: 09/10/16 13:06> Date of Encounter: 09/10/16 Time of Encounter: 13:06 - Assessment and plan (1) Hypertensive emergency Current Visit: Yes Status: Acute Assessment and plan: Patient presented with a blood pressure of greater than 200 and was started on a Cardene drip. She had end organ damage with elevated troponin, pulmonary edema, KEEGAN on security. Patient's blood pressure was initially difficult to regulate even when being on 4 different medications. Nephrology on board and managing patient's blood pressure medications. Patient's hypertension is most likely secondary to worsening kidney function. Renal ultrasound did not show any evidence of renal artery stenosis. Plasma metanephrines are wnL. Patients BP continues to be stable. Currently her regimen includes minoxidil and Diovan. Hydralazine clonidine and Isordil were discontinued. Patient is being weaned off clonidine. His blood pressure is stable overnight patient will be okay for discharge. The goal of blood pressure is systolic 130. (2) Acute worsening of stage 3 chronic kidney disease Current Visit: Yes Status: Acute Assessment and plan: Per nephrology. Patient has worsening renal function since admission. Worsening kidney disease may be secondary to hypertension and/or diabetes. Patient had significant proteinuria with protein to creatinine ratio 7. Renal ultrasound shows hemodynamically stable kidney. Plan was to obtain a renal biopsy however patient just underwent PCI needs to be on [place] to until August 2016. Continue to avoid nephrotoxic drugs. Management as per nephrology Improved kidney function continue prednisone. Patient's creatinine will be Checked tomorrow morning if stable she is okay for discharge. (3) Acute respiratory failure Current Visit: Yes Status: Resolved Assessment and plan: Resolved. Patients acute respiratory failure was due to acute on chronic diastolic chf 2nd to hypertensive emergency. She was on high flow O2 but has been weaned to room air. Patient's oxygen saturations are above 90%. We will continue to monitor her respiratory status. Patient did not qualify for oxygen during 6 minute O2 qualification walk. She may need outpatient sleep study to be evaluated for sleep apnea. RF: obesity, large neck size, hypertension, (4) Acute diastolic (congestive) heart failure Current Visit: Yes Status: Acute Assessment and plan: Patient's dyspnea has improved considerably from admission. Per phsyical exam patient has absent pedal edema and absent rails. Continue by mouth Lasix. Her bicarbonate and potassium remain stable. Patient's creatinine is stable. (5) COPD exacerbation Current Visit: Yes Status: Ruled-out Assessment and plan: Patients acute resp failure more likely end to acute CHF exacerbation as diureses has helped improve patients respiratory status. We will continue her Symbicort. Patient has finished her 5 day course of Zithromax. (6) Vitamin D deficiency Current Visit: Yes Status: Acute Assessment and plan: Patient's vitamin D level at 15. This may be secondary to decreased intake in diet, or metabolic phenomenon including intrinsic renal disease. Patient also has hyperparathyroidism. This may due to intrinsic renal disease and inability for the kidneys to produce vitamin D. Patient will get 50,000 units of ergocalciferol every week for the next 8 weeks. (7) Insulin dependent diabetes mellitus Current Visit: Yes Status: Chronic Assessment and plan: Patient's blood sugar improved. Her hemoglobin A1c 6.3. Continue basal insulin of 50 units Levemir and 10 units lispro preprandial. Continue diabetic diet. Patients blood sugars are improving. (8) DVT prophylaxis Current Visit: No Status: Acute Assessment and plan: Continue Lovenox (9) Anemia Current Visit: No Status: Chronic Assessment and plan: Most likely related to chronic renal disease/chronic disease. Hgb stable at 10. Patient has a microcytic hyperchromic anemia. She is iron deficient. Ferritin level is high 550. Patient has good iron stores. Folate level is 5.8. Vitamin B12 is 491. Replacing folic acid and vitamin B-12 and iron. Blood smear indicates patient may have a reactive process. - Subjective Interval history: 60-year-old female admitted for acute hypertensive emergency and acute diastolic heart failure. Patient denies any overnight problems. She denies chest pain, shortness of breath, nausea, vomiting, decrease in appetite. Patient does complain of constipation. - Constitutional Vitals: Temp Pulse Resp BP Pulse Ox 98.1 F 83 16 157/79 96 09/10/16 07:00 09/10/16 07:00 09/10/16 11:07 09/10/16 07:00 09/10/16 11:07 General appearance: Present: A&O X 3, answers questions appropriately - Head Head exam: Present: atraumatic, normocephalic - Eye Eye exam: Present: PERRL, conjuntiva pink, sclera anicteric - Neck Neck exam general surgery: Present: supple, trachea midline. Absent: lymphadenopathy - Respiratory Respiratory exam: Present: CTAB. Absent: accessory muscle use, rales, rhonchi, wheezes - Cardiovascular Cardiovascular exam: Present: RRR, +S1, +S2, systolic murmur. Absent: diastolic murmur, gallop, rubs - GI/Abdominal GI/Abdominal exam: Present: normal bowel sounds, soft, no peritoneal signs. Absent: distended, tenderness - Extremities Exam Extremities exam: Present: warm, radial pulses palpable and symetrical. Absent : calf tenderness, cyanotic, pedal edema - Neurological Exam Neurological exam: Present: CN II-XII intact, oriented X3, no focal deficits. Absent: pronater drift, facial droop, speech deficit - Skin Skin exam: Present: dry, intact Internal Medicine: Result - Labs CBC & Chem 7: 09/10/16 03:02 09/10/16 03:02 Labs: Short CBC 09/10/16 Range/Units 03:02 WBC 12.9 H (4.3-11.1) K/mcL Hgb 10.4 L (11.5-15.4) g/dL Hct 30.7 L (35.3-44.9) % Plt Count 294 (140-400) K/mcL Neutrophils # 10.5 H (1.6-8.9) K/mcL BMP 09/10/16 03:02 Sodium 135 L Potassium 4.4 Chloride 103 Carbon Dioxide 21 BUN 93 H Creatinine 2.05 H Glucose 223 H Calcium 8.7 - ABG Interpretation ABG results: ABG ABG pH 7.41 pH Units (7.32-7.45) 09/03/16 18:35 ABG pCO2 39 mmHg (35-45) 09/03/16 18:35 ABG pO2 84 mmHg (85-104) L 09/03/16 18:35 ABG O2 Saturation 96 % (95-98) 09/03/16 18:35 PT/INR, D-dimer PT 13.1 Seconds (9.4-12.1) H 09/04/16 10:44 Consult Discharge Plan - Plan Instructions: Heart Failure (DC), Chest Pain (DC), Diabetes Mellitus Type 2 in Adults (DC), Chronic Hypertension (DC), Anemia (GEN) Referrals: Heilig,Tiffani Carmen, DO [Primary Care Provider] - 09/17/16 4:00 pm Massimo Freed, WIRE WRAPPING MACHINE OPERATOR [Advanced Practice Nurse] - 09/16/16 10:30 am <Louie Mcdowell - Last Filed: 09/10/16 15:16> Date of Encounter: 09/10/16 - Assessment and plan (1) Acute respiratory failure Current Visit: Yes Status: Resolved Qualifiers: Qualified Code(s): J96.01 - Acute respiratory failure with hypoxia (2) Hypertensive emergency Current Visit: Yes Status: Acute (3) Acute diastolic (congestive) heart failure Current Visit: Yes Status: Acute (4) Acute worsening of stage 3 chronic kidney disease Current Visit: Yes Status: Acute (5) COPD exacerbation Current Visit: Yes Status: Ruled-out (6) Diabetes mellitus Current Visit: Yes Status: Chronic Qualifiers: Qualified Code(s): E11.42 - Type 2 diabetes mellitus with diabetic polyneuropathy; Z79.4 - medical terminologist (current) use of insulin (7) Anemia Current Visit: No Status: Chronic Qualifiers: Qualified Code(s): N18.9 - Chronic kidney disease, unspecified; D63.1 - Anemia in chronic kidney disease (8) Hyperlipidemia Current Visit: No Status: Chronic Qualifiers: Qualified Code(s): E78.2 - Mixed hyperlipidemia (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 - Constitutional Vitals: Temp Pulse Resp BP Pulse Ox 98.1 F 83 16 157/79 96 09/10/16 07:00 09/10/16 07:00 09/10/16 11:07 09/10/16 07:00 09/10/16 11:07 Internal Medicine: Result - Labs CBC & Chem 7: 09/10/16 03:02 09/10/16 03:02 Labs: Short CBC 09/10/16 Range/Units 03:02 WBC 12.9 H (4.3-11.1) K/mcL Hgb 10.4 L (11.5-15.4) g/dL Hct 30.7 L (35.3-44.9) % Plt Count 294 (140-400) K/mcL Neutrophils # 10.5 H (1.6-8.9) K/mcL BMP 09/10/16 03:02 Sodium 135 L Potassium 4.4 Chloride 103 Carbon Dioxide 21 BUN 93 H Creatinine 2.05 H Glucose 223 H Calcium 8.7 - ABG Interpretation ABG results: ABG ABG pH 7.41 pH Units (7.32-7.45) 09/03/16 18:35 ABG pCO2 39 mmHg (35-45) 09/03/16 18:35 ABG pO2 84 mmHg (85-104) L 09/03/16 18:35 ABG O2 Saturation 96 % (95-98) 09/03/16 18:35 PT/INR, D-dimer PT 13.1 Seconds (9.4-12.1) H 09/04/16 10:44 - Attending Attestation I examined this patient and my medical decision-making was reviewed with the Resident Physician on 09/10/16. I agree with the documented findings, disposition and treatment plan as described except to the extent set forth below. Ms. France is currently admitted for acute hypertensive emergency and KEEGAN. She remains moderate risk due to potential for worsening renal failure. Ms. France is up in chair doing IS. She has no specific complaints. No CP or SOB. No GI symptoms. Exam Alert. Comfortable Heart reg Lungs no wheeze I/P 1. HTN emergency - adjustments made to BP meds and will watch again tonight 2. KEEGAN Further diagnoses and plan as above.
[2016-09-10] MEDS ORDERED: Insulin DETEMIR 100 UNIT/ML X5UNITS SQ SCH (13:25)
[2016-09-10] MEDS: *HR* HYDROcodone/Acet 5/325 mg TABLET PO PRN (15:07)
[2016-09-11] MEDS: Ipratropium/Albuterol Neb 3 ML IH SCH ×2 (03:44→10:44)
[2016-09-11 04:32] LABS: Basophils % 0.1 %; Hematocrit 29.4 % (35.3-44.9); Hemoglobin 10.2 g/dL (11.5-15.4); Immature Granulocytes % 1.9 % (0-4); Lymphocytes # 1.5 K/mcL (0.6-4.6); Lymphocytes % 9.8 %; Mean Corpuscular HGB Conc 34.7 g/dL (31.6-35.5); Mean Corpuscular Hemoglobin 24.7 pg (28.0-33.3); Mean Corpuscular Volume 71.2 fL (83.0-100.0); Mean Platelet Volume 11.3 fL (9.4-12.4); Monocytes # 1.4 K/mcL (0.0-1.3); Monocytes % 8.8 %; Neutrophils # 12.2 K/mcL (1.6-8.9); Platelet Count 337 K/mcL (140-400); Red Blood Count 4.13 M/mcL (3.82-4.97); Red Cell Distribution Width 15.8 % (11.5-14.5); Segmented Neutrophils % 79.4 %
[2016-09-11 04:49] LABS: Calcium 8.7 mg/dL (8.6-10.8); Potassium 4.5 mEq/L (3.5-4.5)
[2016-09-11] MEDS: *HR* Enoxaparin 30 MG/0.3 ML SYRINGE SQ SCH (05:36)
--- NOTE | 2016-09-11 07:00 | Electrocardiograph Report ---
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
[2016-09-11 07:11] VITALS: BP 137/73
--- NOTE | 2016-09-11 08:30 | Discharge Summary ---
<Chris Mathew - Last Filed: 09/11/16 13:01> Date of Encounter: 09/11/16 Time of Encounter: 08:21 - Discharge Diagnosis (1) Hypertensive emergency Priority: Primary Status: Acute (2) Acute worsening of stage 3 chronic kidney disease Priority: Secondary Status: Acute (3) Acute respiratory failure Priority: Secondary Status: Resolved (4) Acute diastolic (congestive) heart failure Priority: Secondary Status: Acute (5) COPD exacerbation Priority: Secondary Status: Ruled-out (6) Vitamin D deficiency Priority: Secondary Status: Acute (7) Insulin dependent diabetes mellitus Priority: Secondary Status: Chronic (8) DVT prophylaxis Priority: Secondary Status: Acute (9) Anemia Priority: Secondary Status: Chronic - Discharge Medications Prescriptions: Carvedilol [Coreg] 6.25 mg PO BIDWM #60 tablet Cyanocobalamin (B-12) [Vitamin B12] 1,000 mcg PO DAILY #30 tablet Ergocalciferol (VITAMIN D2) [Drisdol (50,000 Unit)] 50,000 unit PO QWEEK #7 capsule Ferrous Sulfate 325 mg PO BIDWM #60 tablet Folic Acid 5 mg PO DAILY #30 tablet HYDROcodone/Acet 5/325 mg [[place] 5-325 mg] 1 tab PO Q6H PRN #14 tab PRN Reason: Pain Minoxidil 5 mg PO DAILY #60 tablet Omeprazole [PriLOSEC] 40 mg PO DAILY@0630 #30 capsule. PredniSONE 60 mg PO DAILY #30 tablet Sulfamethoxazole/Trimeth DS [Bactrim DS] 1 each PO DAILY #30 tablet Valsartan [Diovan] 80 mg PO DAILY #30 tablet Home Medications: Duloxetine HCl [Cymbalta] 60 mg PO DAILY 02/22/15 [History] Gabapentin [Neurontin] 300 mg PO TID 02/22/15 [History] Insulin ASPART [NovoLOG] 8 - 14 unit SQ TIDWM PRN 02/22/15 [History] Insulin Glargine,Hum.rec.anlog [Lantus Solostar] 40 unit SQ QAM 02/22/15 [ History] Nitroglycerin [Nitrostat] 0.4 mg SL Q5-6MIN PRN 02/22/15 [History] Hydrocodone/Acetaminophen [[place] 5-325 Tablet] 1 tab PO Q6H PRN #7 tab 08/29/16 [Rx] Furosemide [Lasix] 40 mg PO DAILY 08/20/16 [History] Metoclopramide [Reglan] 10 mg PO Q6HR 08/20/16 [History] Promethazine [Phenergan] 25 mg PO Q12H PRN 08/20/16 [History] Ticagrelor [Brilinta] 90 mg PO BID 08/20/16 [History] Sennosides/Docusate Sodium [Senna Plus] 1 each PO BID PRN #30 tablet 08/22/16 [ Rx] Aspirin 81 mg PO DAILY 09/03/16 [History] Carvedilol [Coreg] 6.25 mg PO BIDWM #60 tablet 09/11/16 [Rx] Cyanocobalamin (B-12) [Vitamin B12] 1,000 mcg PO DAILY #30 tablet 09/11/16 [Rx] Ergocalciferol (VITAMIN D2) [Drisdol (50,000 Unit)] 50,000 unit PO QWEEK #7 capsule 09/11/16 [Rx] Ferrous Sulfate 325 mg PO BIDWM #60 tablet 09/11/16 [Rx] Folic Acid 5 mg PO DAILY #30 tablet 09/11/16 [Rx] HYDROcodone/Acet 5/325 mg [[place] 5-325 mg] 1 tab PO Q6H PRN #14 tab 09/11/16 [Rx ] Minoxidil 5 mg PO DAILY #60 tablet 09/11/16 [Rx] Omeprazole [PriLOSEC] 40 mg PO DAILY@0630 #30 capsule. 09/11/16 [Rx] PredniSONE 60 mg PO DAILY #30 tablet 09/11/16 [Rx] Sulfamethoxazole/Trimeth DS [Bactrim DS] 1 each PO DAILY #30 tablet 09/11/16 [Rx ] Valsartan [Diovan] 80 mg PO DAILY #30 tablet 09/11/16 [Rx] Allergies/Adverse Reactions: Allergies fentanyl Allergy (Verified 08/20/16 09:41) Shakiness Oxycodone [From Percocet] Allergy (Verified 08/20/16 09:41) Shakiness Procedures/tests Complete & Pending: Procedures Performed prior 72 hours Category Date Time Status ECG 12 lead ECG [ECG] Routine Y 09/08/16 08:22 Completed Date of admission: 09/03/16 06:03 Primary care physician: Tiffani Christensen DO Consults: 09/03/16 06:20 Consult to Cardiology [CONS] Routine Comment: Consulting Provider: Cardiology Gertrude Reason for Consult: hypertensive emergency, Trop 0.27 Call Completed: No 09/03/16 08:51 Consult to Nephrology [CONS] Routine Consulting Provider: Kidney Gertrude/DOUG/ERROL/ENMANUEL Reason for Consult: HTN emergency, worsening Cr/GFR Call Completed: Yes 09/04/16 10:31 Consult to Invasive Line Access Team [CONS] Routine Reason for Consult: poor access Line Type: EPIV Discharging clinician: Chris Mathew Anticipated date of discharge: 09/11/16 - Patient Status Disposition: Home, Self-Care Condition: Fair Functional capacity at discharge: independent ambulation Overall status at discharge: patient is progressing back to baseline - Discharge Instructions Instructions: Sulfamethoxazole/Trimethoprim (By mouth), Iron Supplements (By mouth), Hydrocodone/Acetaminophen (By mouth), Prednisone (By mouth), Omeprazole (By mouth), Folic Acid (By mouth), Minoxidil (By mouth), Valsartan (By mouth), Carvedilol (By mouth), Vitamin B-12 (Cyanocobalamin) (By mouth), Vitamin D (By mouth), Heart Failure (DC), Chest Pain (DC), Diabetes Mellitus Type 2 in Adults (DC), Chronic Hypertension (DC), Anemia (GEN) Follow Up With: Gaurav France MD [Partnered Physician] - 09/29/16 11:00 am () Tiffani Christensen DO [Primary Care Provider] - 09/17/16 4:00 pm Massimo Freed CNP [Advanced Practice Nurse] - 09/16/16 10:30 am - Diet and Activity Activity: increase activity as tolerated Diet: diabetic diet, low fat, low cholesterol, low salt diet (fluid restriction to 1500cc) Hospital course: Ms. France is a 60 year old female with history of coronary artery disease, diabetes, GERD, hypertension, status post PCI June 2016 at [facility] presented with chief complaint of nausea, vomiting and shortness of breath. She had had a history of uncontrollable hypertension. Patient presented with systolic blood pressure over 200. During admission she denied any fevers, chills, diarrhea, blood in urine, blood in stool, facial droop, slurred speech, focal weakness. Initially nitroglycerin drip was started however it remained uncontrolled. Patient is admitted for hypertensive emergency She had elevations in her troponin, pulmonary edema, KEEGAN. Initially she was started on hydralazine, clonidine. Cardiology was consulted for recommendations. Her BNP was 4793. Echocardiogram 2 weeks ago showed preserved ejection fraction with mild diastolic dysfunction. Patient was started on Lasix 60 mg twice a day. Due to acute pulmonary edema patient was started on BiPAP as well. Initial ABGs showed no abnormalities in PCO2 or PH. Remotely Piloted Vehicle Controller consult as well for acute respiratory failure which was determined to be secondary to pulmonary edema versus acute exacerbation of COPD. At time of admission patient was using 13 L high flow nasal cannula. She was also started on 2, Symbicort and 5 day of azithromycin for COPD exacerbation. Through the length of her stay patients sob continued to improve with diuresis and BIPAP. >5000cc of fluid was removed. SHe was able to be weaned off of supplemental O2. She did six min walk and did not qualify for O2. Patient has RF for sleep apnea including obesity, HTN,age. She should follow up outpatient for sleep study as sleep apnea can cause uncontrollable HTN. Patient should have a fluid restricted diet of 1500cc. For the first six days of admission patient's HTN was difficult to control. Nitroglycerin gtt was d/c and cardene drip was started. She was also started on home clonidine, metoprolol. Thereafter metoprolol was changed to coreg. Nephrology was consulted to evaluate for malignant HTN and KEEGAN. Patients baseline creatinine is 1.2-1.3. She presented with 1.63 and her creatinine continued to worsen. Possible reasons for KEEGAN are poorly treated diabetes and HTN. However, patient also had significant protinuria of 7 grams. Renal US was negative. She would have benifited from renal biopsy however, patient is on birlinta s/p pci and was not appropriate candidate. Serum metanephrines wnl. Patient was tried on several medications for HTN after cardene drip was d/c. Last patients BP was controlled on Mixonidil, diovan, coreg, and lasix. BP goal is 130/80. Along with KEEGAN and HTN patient also presented with anemia with hgb of 10. Patient has microcytic hyperchromic anemia. She is iron deficient. Ferritin level is 550. Folate is 5.8. B12 is 491. We replaced all during her stay and also sent her home on prescriptions for all three. Furthermore, she was vit d def. Sent home on ergocalciferol 50,000 units Qweek for 8 weeks. Furthermore, patient was started on prednisone to treat her KEEGAN as if it were FSGS. Her creatinine stabalized at 2.0 after starting. Patient was discharged with prednisone (2 months), bactrim for PCP prophylaxis, and PPI annamaria. She will follow up with Dr. France within a week and also has order for BMP on 09/14. Last, patients glucose was very difficult to get under control. Her Hgb A1c is 6.3. Her insulin was slowly titrated up which decreased her average blood glucose from 330s to 220s. She was on Levamir 50 units and Insulin lispro 10 units. As patient is on predispose her glucose levels will be difficult to control. This morning patient denied any cp, sob. She is able to ambulate independently and has great appetite. Patients BP is well controlled at goal. She is ready for discharge. Patient will follow up with Dr. Christensen, her PCP. Time spent discussing smoking cessation with patient: 3 to 10 minutes - Time Spent with Patient Total time spent providing and/or coordinating discharge services: - Constitutional Vitals: Temp Pulse Resp BP Pulse Ox 98.7 F 81 16 137/73 92 L 09/11/16 07:10 09/11/16 07:10 09/11/16 07:10 09/11/16 07:10 09/11/16 07:10 General appearance: Present: A&O X 3, answers questions appropriately - Head Head exam: Present: atraumatic, normocephalic - Eye Eye exam: Present: PERRL, conjuntiva pink, sclera anicteric - Neck Neck exam general surgery: Present: supple, trachea midline. Absent: lymphadenopathy - Respiratory Respiratory exam: Present: CTAB. Absent: accessory muscle use, rales, rhonchi, wheezes - Cardiovascular Cardiovascular exam: Present: RRR, +S1, +S2. Absent: diastolic murmur, gallop, rubs, systolic murmur - GI/Abdominal GI/Abdominal exam: Present: normal bowel sounds, soft, no peritoneal signs. Absent: distended, tenderness - Extremities Exam Extremities exam: Present: pedal edema (1+), warm, radial pulses palpable and symetrical. Absent: calf tenderness, cyanotic - Neurological Exam Neurological exam: Present: CN II-XII intact, oriented X3, no focal deficits. Absent: pronater drift, facial droop, speech deficit - Skin Skin exam: Present: dry, intact <Louie Mcdowell - Last Filed: 09/11/16 14:20> Date of Encounter: 09/11/16 - Discharge Diagnosis (1) Acute respiratory failure Status: Resolved Qualifiers: Qualified Code(s): J96.01 - Acute respiratory failure with hypoxia (2) Hypertensive emergency Status: Acute (3) Acute diastolic (congestive) heart failure Status: Acute (4) Acute worsening of stage 3 chronic kidney disease Status: Acute (5) COPD exacerbation Status: Ruled-out (6) Diabetes mellitus Priority: Secondary Status: Chronic Qualifiers: Qualified Code(s): E11.42 - Type 2 diabetes mellitus with diabetic polyneuropathy; 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 (7) Anemia Status: Chronic Qualifiers: Qualified Code(s): N18.9 - Chronic kidney disease, unspecified; D63.1 - Anemia in chronic kidney disease (8) Hyperlipidemia Priority: Secondary Status: Chronic Qualifiers: Qualified Code(s): E78.2 - Mixed hyperlipidemia (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 Date of admission: 09/03/16 06:03 Primary care physician: Tiffani Christensen DO Consults: 09/03/16 06:20 Consult to Cardiology [CONS] Routine Comment: Consulting Provider: Cardiology Gertrude Reason for Consult: hypertensive emergency, Trop 0.27 Call Completed: No 09/03/16 08:51 Consult to Nephrology [CONS] Routine Consulting Provider: Kidney Gertrude/DOUG/ERROL/ENMANUEL Reason for Consult: HTN emergency, worsening Cr/GFR Call Completed: Yes 09/04/16 10:31 Consult to Invasive Line Access Team [CONS] Routine Reason for Consult: poor access Line Type: [facility] Hospital course: Ms. France is a 60 year old female - Time Spent with Patient Total time spent providing and/or coordinating discharge services: 39min - Constitutional Vitals: Temp Pulse Resp BP Pulse Ox 98.7 F 81 18 137/73 97 09/11/16 07:10 09/11/16 07:10 09/11/16 10:45 09/11/16 07:10 09/11/16 10:45 - Attending Attestation I examined this patient and my medical decision-making was reviewed with the Resident Physician on 09/11/16. I agree with the documented findings, disposition and treatment plan as described except to the extent set forth below. Ms. France is doing well today. Her BP has been well controlled and creatinine is stable. She is afebrile and ready for discharge today. Exam Alert. Comfortable Heart reg No wheeze Plan D/C today Follow up as outpatient
[2016-09-11] MEDS: Gabapentin 300 MG CAPSULE PO SCH (08:45)
[2016-09-11] MEDS: Cyanocobalamin (B-12) 1,000 MCG TABLET PO SCH (08:45)
[2016-09-11] MEDS: predniSONE 20 MG TABLET PO SCH (08:46)
[2016-09-11] MEDS: cloNIDine HCl 0.1 MG TABLET PO SCH (08:46)
[2016-09-11] MEDS: Aspirin Enteric Coated 81 MG Tablet PO SCH (08:46)
[2016-09-11] MEDS: Insulin LISPRO 300 UNITS/3 ML VIAL SQ SCH ×4 (08:46→12:21)
[2016-09-11] MEDS: *HR* Ticagrelor 90 MG TABLET PO SCH (08:46)
[2016-09-11] MEDS: Valsartan 80 MG TABLET PO SCH (08:46)
[2016-09-11] MEDS: Folic Acid 1 MG TABLET PO SCH (08:53)
[2016-09-11] MEDS ORDERED: Bisacodyl 10 MG RECTAL SUPPOSITORY RC PRN (09:03)
[2016-09-11] MEDS: Budesonide/Formoterol 160/4.5 MDI IH SCH (10:45)
--- NOTE | 2016-09-11 13:00 | Physician Discharge Referral ---
Home Health/Hosp Referral Info Transfer to: Home Health Attending Provider: Dr. perry Provider in Charge Post Discharge: PCP - Diagnosis (1) Hypertensive emergency Priority: Primary Status: Acute (2) Acute worsening of stage 3 chronic kidney disease Priority: Secondary Status: Acute (3) Acute respiratory failure Priority: Secondary Status: Resolved (4) Acute diastolic (congestive) heart failure Priority: Secondary Status: Acute (5) COPD exacerbation Priority: Secondary Status: Ruled-out (6) Vitamin D deficiency Priority: Secondary Status: Acute (7) Insulin dependent diabetes mellitus Priority: Secondary Status: Chronic (8) DVT prophylaxis Priority: Secondary Status: Acute (9) Anemia Priority: Secondary Status: Chronic - Respiratory Orders Smoking Cessation: Smoking cessation has been advised. For more information, call the [place] Tobacco Quit Line at 2-555-PXNM-NOW. - Diet/Nutrition Diet/Nutrition Orders: Renal, Cardiac - Activity Activity Orders: Up ad graham - Services Needed Following services are medically necessary services: Nursing - Transfer Medications Prescriptions: Carvedilol [Coreg] 6.25 mg PO BIDWM #60 tablet Cyanocobalamin (B-12) [Vitamin B12] 1,000 mcg PO DAILY #30 tablet Ergocalciferol (VITAMIN D2) [Drisdol (50,000 Unit)] 50,000 unit PO QWEEK #7 capsule Ferrous Sulfate 325 mg PO BIDWM #60 tablet Folic Acid 5 mg PO DAILY #30 tablet HYDROcodone/Acet 5/325 mg [[place] 5-325 mg] 1 tab PO Q6H PRN #14 tab PRN Reason: Pain Minoxidil 5 mg PO DAILY #60 tablet Omeprazole [PriLOSEC] 40 mg PO DAILY@0630 #30 capsule. PredniSONE 60 mg PO DAILY #30 tablet Sulfamethoxazole/Trimeth DS [Bactrim DS] 1 each PO DAILY #30 tablet Valsartan [Diovan] 80 mg PO DAILY #30 tablet Home Medications: Duloxetine HCl [Cymbalta] 60 mg PO DAILY 02/22/15 [History] Gabapentin [Neurontin] 300 mg PO TID 02/22/15 [History] Insulin ASPART [NovoLOG] 8 - 14 unit SQ TIDWM PRN 02/22/15 [History] Insulin Glargine,Hum.rec.anlog [Lantus Solostar] 40 unit SQ QAM 02/22/15 [ History] Nitroglycerin [Nitrostat] 0.4 mg SL Q5-6MIN PRN 02/22/15 [History] Hydrocodone/Acetaminophen [[place] 5-325 Tablet] 1 tab PO Q6H PRN #7 tab 03/16/16 [Rx] Furosemide [Lasix] 40 mg PO DAILY 08/20/16 [History] Metoclopramide [Reglan] 10 mg PO Q6HR 08/20/16 [History] Promethazine [Phenergan] 25 mg PO Q12H PRN 08/20/16 [History] Ticagrelor [Brilinta] 90 mg PO BID 08/20/16 [History] Sennosides/Docusate Sodium [Senna Plus] 1 each PO BID PRN #30 tablet 08/22/16 [ Rx] Aspirin 81 mg PO DAILY 09/03/16 [History] CloNIDine [Catapres-Tts 3] 1 each TP QWEEK 09/03/16 [History] Carvedilol [Coreg] 6.25 mg PO BIDWM #60 tablet 09/11/16 [Rx] Cyanocobalamin (B-12) [Vitamin B12] 1,000 mcg PO DAILY #30 tablet 09/11/16 [Rx] Ergocalciferol (VITAMIN D2) [Drisdol (50,000 Unit)] 50,000 unit PO QWEEK #7 capsule 09/11/16 [Rx] Ferrous Sulfate 325 mg PO BIDWM #60 tablet 09/11/16 [Rx] Folic Acid 5 mg PO DAILY #30 tablet 09/11/16 [Rx] HYDROcodone/Acet 5/325 mg [[place] 5-325 mg] 1 tab PO Q6H PRN #14 tab 09/11/16 [Rx ] Minoxidil 5 mg PO DAILY #60 tablet 09/11/16 [Rx] Omeprazole [PriLOSEC] 40 mg PO DAILY@0630 #30 capsule. 09/11/16 [Rx] PredniSONE 60 mg PO DAILY #30 tablet 09/11/16 [Rx] Sulfamethoxazole/Trimeth DS [Bactrim DS] 1 each PO DAILY #30 tablet 09/11/16 [Rx ] Valsartan [Diovan] 80 mg PO DAILY #30 tablet 09/11/16 [Rx] Allergies/Adverse Reactions: Allergies fentanyl Allergy (Verified 08/20/16 09:41) Fazal Oxycodone [From Percocet] Allergy (Verified 08/20/16 09:41) Fazal Certification: Further, I certify that my clinical findings support that this patient is homebound (i.e. absences from home require considerable and taxing effort and are for medical reasons or restorationist services or infrequently or short duration when for other reasons) because: Homebound Reason: Patient requires assistance of a person or device to safely leave home Attestation: My signature below is to certify that this patient is under my care and that I, or nurse practitioner, or a physician's recruitment and outreach assistant working with me, has a face-to -face encounter with this patient.
== END 2016-09-11 14:41 | disposition home health service (06) | DRG 291 ==
LOC: EMEROO 01:03 → ICNU 01:03 → SUATTDRO 06:03 → 2NENU 09-05 17:34
PROVIDERS: ADMIT Internal Medicine; ATTEND Internal Medicine